=== PATIENT | male | born 1960 | race Caucasian/White ===

== ENCOUNTER 2019-11-10 12:04 | Outpatient (CLI) | payer BC, SELFPAY ==
--- NOTE | ~2019-11-10 | XR_ITS ---
XR chest 2V 11/10/2019 12:18 Indication: Cough and fever Procedure: 2 view chest Comparison: No prior studies for comparison. Findings: Heart size normal. No focal air space disease, pulmonary edema, pleural effusion or suspect ed pneumothorax. Calcified granuloma left mid chest. The lungs are hyperinflated which is consistent with, but not diagnostic of chronic obstructive pulmonary disease. Impression: 1: No acute cardiopulmonary disease. Reviewed, dictated and finalized at location A. Impression: 1: No acute cardiopulmonary disease.
== END 2019-11-10 12:05 | disposition home or self-care (01) ==
PROVIDERS: PCP Nurse Practitioner Family; Visit Provider Nurse Practitioner Family
DX: R05 Cough (principal)
CPT/HCPCS: 71046

== ENCOUNTER 2020-03-16 14:31 | Inpatient (IN) | payer BC, SELFPAY ==
[2020-03-16] VITALS (28 sets, daily range): BP systolic 109–143; BP diastolic 74–129; PULSE 88–139; RESP 15–22; TEMP 35.8–36.4; O2SAT 89–98; BMI 26.2
--- NOTE | ~2020-03-16 | XR_ITS ---
EXAMINATION: XR chest 1V portable DATE: 03/16/2020 16:28 INDICATION: Dyspnea TECHNIQUE: frontal view of the chest was obtained. COMPARISON: Chest radiograph dated 11/10/2019 FINDINGS: Increased interstitial pattern in the bilateral mid and lower lung zones consistent with mild pulmona ry edema. Small bilateral pleural effusions with blunting at the costophrenic angles. Opacities at th e bilateral lower lung zones consistent with associated atelectasis and/or pneumonia. No pneumothorax . Cardiomegaly. Calcified nodule in the left midlung zone consistent with old granulomatous disease. IMPRESSION: 1. Likely congestive heart failure with cardiomegaly, mild pulmonary edema and small bilateral pleura l effusions. 2. Consolidation in the bilateral lower lung zones most likely associated compressive atelectasis alt marian differential includes pneumonia. Reviewed, dictated and finalized at location A. IMPRESSION: 1. Likely congestive heart failure with cardiomegaly, mild pulmonary edema and small bilateral pleural effusions. 2. Consolidation in the bilateral lower lung zones most likely associated compr essive atelectasis although differential includes pneumonia.
--- NOTE | 2020-03-16 14:40 | ECG_ITS ---
Measurements Intervals [place] Rate: 116 P: TN: 0 QRS: 70 QRSD: 94 T: 44 QT: 310 QTc: 432 Interpretive Statements ATRIAL FIBRILLATION WITH RAPID VENTRICULAR RESPONSE NONSPECIFIC T-WAVE ABNORMALITY- INF/HIGH LAT LEADS BASELINE ARTIFACT- I, III, AVR, AVL, V2, V5-V6 ABNORMAL ECG Electronically Signed On 03-16-2020 15:13:33 CDT by Giorgio Gery D.O.
--- NOTE | 2020-03-16 14:48 | PC.NURSE ---
Pt to ED with complaints of shortness of breath with exertion and non-productive cough for 1.5 weeks. Pt denies chest pain or fevers. Pt has been using inhalers at home without relief. Reports he finished a z-pack today. EKG obtained. Pt placed on NIBP, SpO2, and cardiac monitors.
--- NOTE | 2020-03-16 14:55 | ED.SOB ---
HPI - SOB/Dyspnea General Chief Complaint: Shortness of Breath/Dyspnea Stated Complaint: diff breathing Time Seen by Provider: 03/16/20 14:35 Source: RN notes reviewed History of Present Illness HPI Narrative: Patient presents emergency department from home for shortness of breath. Patient symptoms been ongoing for the past 2 weeks. States he short of breath with walking and laying flat. He states that with this he is also been noted that he lays on his side he feels like his heart is been racing. Denies any fevers or chills chest pain abdominal pain nausea vomiting diarrhea or any other symptoms. He did call his PCP and was started on a Z-Brian this past week. Denies any previous cardiac history Related Data Home Medications Medication Instructions Recorded Confirmed fluticasone furoate-vilanterol 1 inh INHALATION DAILY 03/16/20 [Breo Ellipta] Allergies Allergy/AdvReac Type Severity Reaction Status Date / Time Penicillins Allergy Unknown Rash Verified 03/16/20 14:38 Review of Systems Review of Systems: Narrative: Gen.: Denies fevers or chills ENT: Denies congestion Respiratory: See HPI CV: Denies chest pain or palpitations GI: Denies abdominal pain nausea, emesis or diarrhea Musculoskeletal: Denies back pain or muscle pain Neuro: Denies numbness, tingling, weakness or focal weakness Skin: Denies rash Except as documented, all other systems reviewed and negative [facility] Past Medical History Medical History (Updated 03/16/20 @ 16:45 by Chris Hanna DO) Hypertension Osteoarthritis Social History Social History Smoking status: Current every day smoker Alcohol intake: current Gender identity (if verbalized by the patient): Male Exam Narrative: Exam Narrative: APPEARANCE: No acute distress, nontoxic, resting in bed EYES: EOMI HEENT: Normocephalic, atraumatic, OMM RESPIRATORY: No respiratory distress wheezing the bilateral upper lung felix with crackles in the bilateral bases CARDIOVASCULAR: Tachycardic and irregular without murmurs rubs or gallops. ABDOMINAL: Soft, nontender, nondistended, no rebound or guarding MUSCULOSKELETAl: Moves all extremities. No clubbing, cyanosis or edema. NEURO: Awake and alert. Following commands, speech normal, no focal deficits SKIN:: Warm, dry. No rashes lesions or abrasions PSYCHIATRIC: Normal affect/mood, Course Course Emergency Course: Called discussed with Dr. Jones presentation work-up. Agrees with current treatment plan Cardizem request patient receive Lovenox Discussed with KAYLYNN Boothe per for our presentation work-up. Agrees with admission at this time Discussed with patient and family results of workup and diagnosis. Discussed need for admission. Patient and family understand and agree to current treatment plan Vital Signs Vital signs: Vital Signs Temperature 97.3 F L 03/16/20 14:34 Pulse Rate 129 H 03/16/20 14:34 Respiratory Rate 18 03/16/20 14:34 Blood Pressure 136/88 03/16/20 14:34 Pulse Oximetry 98 03/16/20 14:34 Temperature 97.3 F L 03/16/20 14:34 Pulse Rate 108 H 03/16/20 16:30 Respiratory Rate 20 03/16/20 16:30 Blood Pressure 127/95 H 03/16/20 16:16 Pulse Oximetry 97 03/16/20 16:30 MDM - SOB/Dyspnea Lab Data Result diagrams: 03/16/20 14:50 03/16/20 14:50 Labs: Lab Results 03/16/20 03/16/20 03/16/20 Range/Units 14:50 14:50 14:50 WBC 11.5 H (4.5-10.0) K/mm3 RBC 4.00 L (4.6-6.20) M/mm3 Hgb 14.0 (14.0-18.0) g/dL Hct 42.2 (42.0-52.0) % MCV 105.5 H (80-100) fl MCH 35.0 H (26-34) pg MCHC 33.2 (32-36) g/dl RDW 13.4 (11.5-14.5) % Plt Count 267 (150-375) k/mm3 MPV 11.1 H (7.4-10.4) fl Immature Gran % (Auto) 0.5 (0-0.5) % Neut % (Auto) 74.1 H (45.5-73.1) % Lymph % (Auto) 15.8 L (18.3-44.2) % Mckean % (Auto) 8.7 H (2.6-8.5) % Eos % (Auto) 0.4
[2020-03-16 14:56] LABS: Basophils Absolute Auto 0.1 K/mm3 (0.0-0.1); Basophils Percent Auto 0.5 % (0.2-1.2); Eosinophils Absolute Auto 0.1 K/mm3 (0-0.3); Eosinophils Percent Auto 0.4 % (0-4.4); Hematocrit 42.2 % (42.0-52.0); Immature Granulocyte Absolute 0.06 K/mm3 (0.00-0.031); Immature Granulocyte Percent A 0.5 % (0-0.5); Lymphocytes Absolute Auto 1.82 K/mm3 (0.9-3.2); Lymphocytes Percent Auto 15.8 % (18.3-44.2); Mean Corpuscular HGB Conc 33.2 g/dl (32-36); Mean Corpuscular Volume 105.5 fl (80-100); Mean Platelet Volume 11.1 fl (7.4-10.4); Monocytes Percent Auto 8.7 % (2.6-8.5); Neutrophils Absolute Auto 8.5 K/mm3 (1.3-6.7); Neutrophils Percent Auto 74.1 % (45.5-73.1); Platelet Count Result 267 k/mm3 (150-375); Red Cell Distribution Width 13.4 % (11.5-14.5); White Blood Count 11.5 K/mm3 (4.5-10.0)
[2020-03-16 15:05] LABS: INR 1.3; Prothrombin Time 15.6 Seconds (11.1-14.7)
[2020-03-16] MEDS: dilTIAZem HCl INJ 25 MG/5 ML VIAL 5 MG IV PUSH ×2 (15:05→15:56)
[2020-03-16 15:06] LABS: Partial Thromboplastin Time 28.6 SECONDS (22.3-36.8)
[2020-03-16 15:08] LABS: Anion Gap 7 mmol/L (8-16); Blood Urea Nitrogen 25 mg/dL (9-20); Calcium 9.2 mg/dL (8.4-10.2); Carbon Dioxide 28 mmol/L (22-30); Chloride 105 mmol/L (98-107); Estimated CRCL calculation 75 ml/min; Estimated Glomerular Filt Rate > 60; Glucose 120 mg/dL (75-110); Potassium 5.2 mmol/L (3.4-5.0); Sodium 140 mmol/L (137-145)
[2020-03-16 15:20] LABS: NT Pro B Type Natriuretic Pept 2020 PG/ML (5-100); Troponin I 0.021 ng/mL (0.000-0.034)
[2020-03-16] MEDS: ENOXAPARIN 100 MG/ML SYRINGE 90 MG SUB-Q (16:45)
--- NOTE | 2020-03-16 17:25 | ADMGEN ---
This patient, Aly Starr, was admitted to IMU Room 212-01. Patient/family oriented to hospital policies and general routines including ID bracelet, bed and alarms, visiting hours, pain management, procedures, bathroom and other care routines, personal items, smoking policy, room service/diet, and visiting hours. Valuables list has been completed. Information on how to activate the Rapid Response Team has been discussed. Patient/Family are encouraged to report perceived risks to care and to ask questions if they do not understand what they are told or what they should do.
--- NOTE | 2020-03-16 21:19 | PM.IMHP ---
H&P: HPI History of Present Illness Date/Time: 03/16/20 21:19 Chief complaint: Shortness of breath with activity Narrative: Aly Starr is a 59 year old male with a past medical history of hypertension and COPD who presented to the ER with dyspnea on exertion for 2 weeks. He reports that about 2 and half weeks ago he pain to his son's house. A couple of days later he began having shortness of breath and thought that may be due to the paint fumes even though he did wear a mask while painting. He had his [id number] who is a nurse practitioner provide him script of azithromycin, Breo Ellipta inhaler and an albuterol inhaler. Despite taking these medications his symptoms have progressively worsened. He reports that he was wheezing and would here rattling when he would lay down. He was having significant orthopnea with paroxysmal nocturnal dyspnea. He denies any fevers, chills or recent ill contacts. He came into the ER because he was concerned that he may have been having symptoms of COVID. However when the patient arrived to the ER he was noted to be in AFib RVR with heart rates in the 130s. In hindsight, he recalls l feeling as if his heart was racing and having episodes of irregularity especially when he would lay down on his side. He was having dyspnea on exertion and had got to the point where he could not walk 10 ft without significant respiratory distress. He denied having any chest pain. He will occasionally notice some trace edema if he has been working a lot. He has not noticed any recent edema. He has not had any recent travel, or known ill contacts. He does not have a history of COPD or frequent upper respiratory tract infections. He has had a long history of snoring, daytime fatigue, and witnessed apnea. He reports that the symptoms have gotten worse over the last year. He reports that he always feels tired even though he is now sleeping up to 10 hours a day since he retired. He thinks that he needs a sleep study but has never followed through with requesting one from his primary care provider. He denies any hematochezia, melena or hematuria. Review of Systems Review of Systems: Narrative: 12 systems were reviewed with pertinent positives and negatives per HPI. Except as documented in the HPI, all other systems were reviewed and are negative. [facility] Past Medical History Medical History (Updated 10/04/20 @ 00:31 by Shanna Torres DO) Anxiety Hypertension Osteoarthritis Tobacco abuse disorder Surgical History Surgical History (Updated 03/17/20 @ 00:27 by Shanna Torres DO) History of total right knee replacement 2010 Status post left partial knee replacement 1999 Family History Family History (Updated 03/17/20 @ 00:12 by Shanna Torres DO) Father , 80 years old Dementia Atrial fibrillation Mother , 72 years old CHF (congestive heart failure) Sibling Obesity Diabetes mellitus Obstructive sleep apnea Social History Social History (Updated 03/17/20 @ 00:13 by Shanna Torres DO) Social History: He lives in [facility] with his of 32 years. He retired in the early spring. 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 He started smoking at 45 years of age and has smoked between 1-1.5 packs per day. He drinks 2 or 3 beers several times a week. He uses 2 or 3 marijuana joints a week. He has 1 son and 1 daughter. The patient has 2 brothers and 2 sisters. His 1 brother is obese and has diabetes and obstructive sleep apnea. His remaining siblings are relatively healthy. Primary care physician: Dr. Kevin Mac Surrogate decision maker: Tierra Garsiacarlos () Smoking packs per day: 1 Smoking cigarettes per day: 20.0 Years smoked: 15 Smoking pack-years: 15.00 Smoking status: Current every day smoker Tobacco type: cigarettes Alcohol intake: current Drinks per week: 10 Substance use type: marijuana Gender identity (if verbali
[2020-03-16 22:34] LABS: Troponin I 0.019 ng/mL (0.000-0.034)
[2020-03-16] MEDS: diphenhydrAMINE HCl CAP 25 MG CAPSULE 50 MG PO (22:35)
[2020-03-17] VITALS (19 sets, daily range): BP systolic 100–118; BP diastolic 74–93; PULSE 77–112; RESP 16–22; TEMP 36.1–36.6; O2SAT 92–96
[2020-03-17] MEDS: FUROSEMIDE INJ 40 MG/4 ML VIAL 20 MG IV PUSH (00:49)
[2020-03-17] MEDS: ENOXAPARIN 100 MG/ML SYRINGE 90 MG SUB-Q (05:33)
[2020-03-17 08:05] LABS: Basophils Absolute Auto 0.1 K/mm3 (0.0-0.1); Basophils Percent Auto 0.7 % (0.2-1.2); Eosinophils Absolute Auto 0.1 K/mm3 (0-0.3); Eosinophils Percent Auto 0.9 % (0-4.4); Hematocrit 38.3 % (42.0-52.0); Hemoglobin 12.8 g/dL (14.0-18.0); Immature Granulocyte Absolute 0.04 K/mm3 (0.00-0.031); Immature Granulocyte Percent A 0.4 % (0-0.5); Lymphocytes Absolute Auto 1.99 K/mm3 (0.9-3.2); Lymphocytes Percent Auto 18.9 % (18.3-44.2); Mean Corpuscular HGB Conc 33.4 g/dl (32-36); Mean Corpuscular Hemoglobin 34.9 pg (26-34); Mean Corpuscular Volume 104.4 fl (80-100); Mean Platelet Volume 11.6 fl (7.4-10.4); Monocytes Absolute Auto 1.1 K/mm3 (0.1-0.6); Neutrophils Absolute Auto 7.3 K/mm3 (1.3-6.7); Neutrophils Percent Auto 69.1 % (45.5-73.1); Platelet Count Result 237 k/mm3 (150-375); Red Blood Count 3.67 M/mm3 (4.6-6.20); Red Cell Distribution Width 13.3 % (11.5-14.5); White Blood Count 10.5 K/mm3 (4.5-10.0)
[2020-03-17 08:18] LABS: Potassium 4.6 mmol/L (3.4-5.0)
[2020-03-17] MEDS: lisinopriL 20 MG TABLET 40 MG PO (08:37)
[2020-03-17] MEDS: PARoxetine 20 MG TABLET 40 MG PO (08:37)
[2020-03-17] MEDS: PANTOPRAZOLE SOD SESQUIHYDRATE 20 MG TAB PO (08:37)
[2020-03-17 08:41] LABS: Anion Gap 7 mmol/L (8-16); Blood Urea Nitrogen 23 mg/dL (9-20); Calcium 8.9 mg/dL (8.4-10.2); Carbon Dioxide 27 mmol/L (22-30); Chloride 104 mmol/L (98-107); Estimated CRCL calculation 69 ml/min; Estimated Glomerular Filt Rate > 60; Glucose 100 mg/dL (75-110); Magnesium 1.9 mg/dL (1.6-2.3); Sodium 138 mmol/L (137-145)
--- NOTE | 2020-03-17 10:23 | PM.CNCAR ---
Assessment and Plan Additional Plan 59-year-old white male with: Atrial fibrillation of unknown chronicity. By his history I am suspicious he has been out of rhythm for possibly 2 or 3 months. He now is short of breath and has evidence of left-sided congestive heart failure which is obvious on physical exam as well as on chest x-ray. I am going to recommend another dose of oral furosemide today. I will transition him to oral diltiazem along with his lisinopril which has been chronically used for hypertension. With the wheezing going on physical exam at this point I am concerned that he may not tolerate a beta-hector very well. I will recommend systemically anticoagulated him with Xarelto and stop the Lovenox. Echocardiogram will be ordered for tomorrow morning as I am concerned this the patient may have developed a tachycardia mediated cardiomyopathy as his cardiac silhouette is obviously enlarged compared to earlier this year. Thyroid-stimulating hormone should also be checked Further recommendations will be forthcoming the findings of his echocardiogram. Harshil Garcia MD [facility] History of Present Illness History of Present Illness Consult date/time: 03/17/20 10:23 Consult reason: atrial fibrillation Reason For Visit: Shortness of breath with activity Narrative: This is a 59-year-old man of seeing at the request of the hospitalist for assistance with evaluation and treatment of atrial fibrillation. The patient does not have any prior knowledge of any cardiac problems before this admission. He does have chronic hypertension and takes lisinopril for that but really no other significant or serious medical problems. He is a smoker but has not been diagnosed with COPD. The patient states that he has been having symptoms of shortness of breath which have been gradually more more bothersome for at least a couple of months or possibly longer than that. He does notice that when he was laying on his left side in bed he would feel his heart beating erratically but he really did not obviously become too concerned about that as he did not seek any medical attention. He came to the emergency room yesterday because his shortness of breath became rather severe and in the last several days at least he was short of breath when he would try to lie down in bed. He recognized these as more significant problems and eventually thought he should seek medical attention. In the emergency department he was found to be in atrial fibrillation with moderately rapid ventricular response. Of course he was placed on intravenous diltiazem and anticoagulated with Lovenox and admitted to the hospital. The looks like he received 1 dose of oral furosemide as well. The patient feels relatively well he was sleeping in bed with the head of the bed slightly elevated when I came into the room to see him. He offers no other complaints. He reported no chest pain he reported no lower extremity edema. The patient's chest x-ray demonstrates enlargement of the cardiac silhouette pulmonary vascular congestion and small bilateral pleural effusions. His chest x-ray in the chart from October of this year was completely unremarkable. Review of Systems Constitutional: Constitutional: Reports fatigue and Reports lethargy Eyes: Eyes: Reports no additional eye complaints ENT: Reports system reviewed and no additional complaints, except as documented Cardiovascular: Cardiovascular: Reports palpitations Respiratory: Respiratory: Reports dyspnea Gastrointestinal: Gastrointestinal: Reports no additional gastrointestinal complaints Musculoskeletal: Musculoskeletal: Reports no additional musculoskeletal complaints Integumentary/Breasts: Skin/Breast: Reports system reviewed and no additional complaints, except as docu Neurologic: Reports system reviewed and no additional complaints, except as documented Endocrine: Endocrine: Reports no additional endocrine complaints Hematologic/Lymphatic
[2020-03-17] MEDS: FUROSEMIDE 40 MG TABLET PO (12:09)
--- NOTE | 2020-03-17 12:12 | PC.NURSE ---
diltiazem drip d/c'ed. PO med given. Will continue to monitor.
--- NOTE | 2020-03-17 12:26 | PM.IMPN ---
Progress Note: A&P Assessment and Plan (1) Atrial fibrillation with rapid ventricular response: Code(s): I48.91 - Unspecified atrial fibrillation Status: Acute Assessment and Plan: New onset atrial fibrillation. Was as high as the 130s in the ER. Currently his heart rate is down to 90 after he received to 5 mg Cardizem boluses and is on a Cardizem drip at 5 mg an hour. Cardiology has been consulted. Echocardiogram has been ordered. Patient has been started on therapeutic dosing of Lovenox. The patient reports significant symptoms of excessive daytime sleepiness snoring and witnessed episodes of apnea. Patient has high likelihood of obstructive sleep apnea which may have predisposed the patient to developing atrial fibrillation. Apnea link has been ordered. 03/17/20 12:26 patient is a 59-year-old male with no significant past medical history he had been painting his son's house and short of breath and symptoms were getting progressively worse especially with exertion is also developed orthopnea lower extremity swelling he presented emergency department for evaluation of shortness of breath he he was found to have a new onset atrial fibrillation patient was started on diltiazem drip, today patient is seen by telegraph lineman and suspect the patient's symptoms are persisting for last 2-3 months as he is significant cardiomegaly, his TSH is normal, his symptoms are improving his rate is trending down, diltiazem drip postop and patient is now on oral diltiazem, initially patient was anticoagulated with Lovenox now being transitioned Xarelto, patient is also being diuresed suspect patient has a congestive heart failure, cardiac echo is pending, today patient states is feeling better not a short of breath as when he arrived, denies any chest pain shortness of breath palpitation fever or chills (2) CHF (congestive heart failure): Qualifiers: Heart failure type: high output Qualified Code(s): I50.83 - High output heart failure Code(s): I50.9 - Heart failure, unspecified Status: Acute Assessment and Plan: Likely secondary to high-output failure given his 2 weeks symptoms of atrial fibrillation. Patient does have some mild JVD and still having significant orthopnea. Will give 1 time dose of Lasix 20 mg IV push. Echocardiogram has been ordered to further evaluate cardiac structure and function. (3) Tobacco abuse disorder: Code(s): Z72.0 - Tobacco use Status: Acute Assessment and Plan: The patient reports that with the beginning of his symptoms of shortness of breath he became more aware that he needs to quit smoking. Tobacco cessation education was provided. Subjective Date/time seen: 03/17/20 12:26 patient is a 59-year-old male with no significant past medical history he had been painting his son's house and short of breath and symptoms were getting progressively worse especially with exertion is also developed orthopnea lower extremity swelling he presented emergency department for evaluation of shortness of breath he he was found to have a new onset atrial fibrillation patient was started on diltiazem drip, today patient is seen by telegraph lineman and suspect the patient's symptoms are persisting for last 2-3 months as he is significant cardiomegaly, his TSH is normal, his symptoms are improving his rate is trending down, diltiazem drip postop and patient is now on oral diltiazem, initially patient was anticoagulated with Lovenox now being transitioned Xarelto, patient is also being diuresed suspect patient has a congestive heart failure cardiac echo is pending, today patient states is feeling better not a short of breath as when he arrived, denies any chest pain shortness of breath palpitation fever or chills Review of Systems Review of Systems: All systems reviewed & are unremarkable except as noted in HPI and below Exam Const: General: comfortable and no acute
[2020-03-17] MEDS: diphenhydrAMINE HCl CAP 25 MG CAPSULE 50 MG PO (20:58)
[2020-03-18] VITALS (11 sets, daily range): BP systolic 108–118; BP diastolic 78–93; PULSE 77–110; RESP 18–20; TEMP 35.7–36.6; O2SAT 93–96
--- NOTE | 2020-03-18 | ECHO_ITS ---
Patient Info Name: Aly Starr Age: 59 years : 1960 Gender: Male Ht: 74 in Wt: 199 lbs BSA: 2.18 m2 HR: 100 bpm BP: 108 / 78 mmHg Heart Rhythm: Atrial Fibrillation Technical Quality: Good Exam Date: 03/18/2020 9:35 AM Exam Location: [facility] Patient Status: Inpatient Admit Date: 03/17/2020 Staff Ordering Physician: Harshil Garcia MD Parachute Repairer: Yovanny Farrell RDCS, RT Attending Provider: Dorian Gonzalez MD Referring Physician: Radha BECK; Exam Type: CA echo doppler color flow Study Info Indications I48.0 - Paroxysmal atrial fibrillation Complete two-dimensional, color flow and Doppler transthoracic echocardiogram is performed. Summary 1. Complete two-dimensional, color flow and Doppler transthoracic echocardiogram is performed. 2. Left ventricular chamber dimension is normal. 3. Left ventricular systolic function is normal, estimated at 50-55%. 4. The mitral valve has thickened leaflets. 5. There is severe mitral valve regurgitation. 6. There is moderate tricuspid valve regurgitation. 7. Moderate to severe biatrial dilation. Left Ventricle Left ventricular chamber dimension is normal. Left ventricular systolic function is normal, estimated at 50-55%. Right Ventricle Right ventricular chamber dimension is normal. Left Atria Left atrial chamber dimension is moderately enlarged. Right Atria Right atrial chamber dimension is moderately enlarged. Aortic Valve The aortic valve is normal. Pulmonic Valve The pulmonic valve is not well visualized. Mitral Valve The mitral valve has thickened leaflets. There is severe mitral valve regurgitation. Tricuspid Valve The tricuspid valve leaflets are normal. There is moderate tricuspid valve regurgitation. Pericardium/Pleural The pericardium appears normal. Aorta The aortic root size at the sinus of Valsalva is normal. Left Ventricular Outflow Tract Name Value Normal LVOT 2D LVOT Diameter 2.1 cm LVOT Doppler LVOT Peak Gradient 3 mmHg LVOT Mean Gradient 2 mmHg LVOT VTI 18 cm LVOT VTI/AV VTI Ratio 1.0 LVOT Stroke Volume 66 ml LVOT CO 3.5 l/min LVOT CI 1.6 l/min/m2 Mitral Valve Name Value Normal MV Doppler MV Peak Gradient 2 mmHg MV Mean Gradient 1 mmHg MV Decel [place] 958 cm/s2 MV PHT 72 ms MV Area (PHT) 3.1 cm2 4.0-5.0 MV Area (Cont Eq VTI) 5.3 cm2 MV Regurgitation Doppler
[2020-03-18 06:27] LABS: Basophils Absolute Auto 0.1 K/mm3 (0.0-0.1); Basophils Percent Auto 0.7 % (0.2-1.2); Eosinophils Absolute Auto 0.1 K/mm3 (0-0.3); Eosinophils Percent Auto 1.3 % (0-4.4); Hematocrit 37.5 % (42.0-52.0); Hemoglobin 12.6 g/dL (14.0-18.0); Immature Granulocyte Absolute 0.05 K/mm3 (0.00-0.031); Immature Granulocyte Percent A 0.5 % (0-0.5); Lymphocytes Absolute Auto 1.85 K/mm3 (0.9-3.2); Mean Corpuscular HGB Conc 33.6 g/dl (32-36); Mean Corpuscular Hemoglobin 34.1 pg (26-34); Mean Corpuscular Volume 101.6 fl (80-100); Mean Platelet Volume 10.9 fl (7.4-10.4); Monocytes Percent Auto 9.3 % (2.6-8.5); Neutrophils Absolute Auto 7.2 K/mm3 (1.3-6.7); Neutrophils Percent Auto 70.2 % (45.5-73.1); Platelet Count Result 239 k/mm3 (150-375); Red Blood Count 3.69 M/mm3 (4.6-6.20); Red Cell Distribution Width 13.2 % (11.5-14.5); White Blood Count 10.3 K/mm3 (4.5-10.0)
[2020-03-18 08:25] LABS: Anion Gap 10 mmol/L (8-16); Blood Urea Nitrogen 21 mg/dL (9-20); Calcium 8.7 mg/dL (8.4-10.2); Carbon Dioxide 25 mmol/L (22-30); Chloride 104 mmol/L (98-107); Estimated CRCL calculation 75 ml/min; Estimated Glomerular Filt Rate > 60; Glucose 123 mg/dL (75-110); Potassium 4.3 mmol/L (3.4-5.0); Sodium 139 mmol/L (137-145)
[2020-03-18] MEDS: PARoxetine 20 MG TABLET 40 MG PO (08:43)
[2020-03-18] MEDS: lisinopriL 20 MG TABLET 40 MG PO (08:43)
[2020-03-18] MEDS: PANTOPRAZOLE SOD SESQUIHYDRATE 20 MG TAB PO (08:43)
--- NOTE | 2020-03-18 09:34 | PM.PNCARD ---
Progress Note: A&P Assessment and Plan (1) Atrial fibrillation with rapid ventricular response: Code(s): I48.91 - Unspecified atrial fibrillation Status: Acute Assessment and Plan: Atrial fibrillation of unknown chronicity. Rate is relatively controlled on Cardizem CD 240 mg daily. CHADs-VASC2 score is 2. Anticoagulate with Xarelto 20 mg daily. Renal function is normal. TSH is within normal limits. Echo pending. Further recommendations pending the results of the echocardiogram. (2) CHF (congestive heart failure): Qualifiers: Heart failure type: high output Qualified Code(s): I50.83 - High output heart failure Code(s): I50.9 - Heart failure, unspecified Status: Acute Assessment and Plan: Diuresed. Feeling much better. No crackles noted his lungs today however has inspiratory and expiratory rhonchi. Is coughing up white secretions. Echo pending as above. (3) Hypertension: Code(s): I10 - Essential (primary) hypertension Status: Acute Assessment and Plan: Blood pressure is at goal. Continue lisinopril 40 mg daily along with Cardizem CD. May need to decrease lisinopril dose if need to increase Cardizem dose for better rate control. (4) Tobacco abuse disorder: Code(s): Z72.0 - Tobacco use Status: Acute Assessment and Plan: Tobacco cessation discussed. He is in agreement that he needs to stop smoking. Additional Plan Plan discussed Dr. Garcia [id number] 03/18/2020 Subjective Date/time seen: 03/18/20 09:34 Interval history: Follow-up for: Atrial fibrillation of unknown chronicity, left-sided congestive heart failure, cardiomegaly on chest x-ray, tobacco use. Date of service: 03/18/2020 Subjective: Feeling much better. Denied shortness of breath walking back and forth to the bathroom. No chest discomfort. Occasionally feels a need to take in a deep breath. Rare palpitations noted when his heart rate is elevated. No dizziness or lightheadedness. Review of Systems Constitutional: Constitutional: Reports fatigue Eyes: Eyes: Denies blind spots and Denies blurry vision ENT: Reports Normal hearing present, Denies dizziness and Denies epistaxis Cardiovascular: Cardiovascular: Reports palpitations and Reports dyspnea ( Significantly improved) Respiratory: Respiratory: Reports cough ( productive of white secretions) and Reports dyspnea ( significantly improved) Gastrointestinal: Gastrointestinal: Denies abdominal pain, Denies nausea and Denies vomiting Musculoskeletal: Musculoskeletal: Denies back pain and Denies arthralgias Integumentary/Breasts: Skin/Breast: Denies erythema and Denies rash Comments: multiple tattoos Neurologic: Reports Normal hearing present, Denies dizziness, Denies syncope and Denies headache(s) Psychiatric: Psychiatric: Denies anxiety and Denies depression Endocrine: Endocrine: Reports fatigue and Reports palpitations Hematologic/Lymphatic: Hematologic/Lymphatic: Denies easy bleeding and Denies easy bruising Allergic/Immunologic: Allergic/Immunologic: Denies lip swelling and Denies throat swelling Exam Const: General: cooperative, healthy appearing, comfortable and no acute distress Nutritional Appearance: average body habitus Orientation/consciousness: patient oriented x3 Limitations: no limitations HENMT: Mouth: Yes moist mucous membranes Eyes: Sclera: sclerae normal Pupils: Equal, round and reactive pupils present Neck: Neck: supple and no JVD Resp: Effort & Inspection: normal respiratory effort Auscultation: no crackles, rhonchi ( inspiratory and expiratory) and no wheezes Cardio: Rhythm: abnormal rhythm irregularly irregular Heart sounds: no murmurs Peripheral pulses: Peripheral pulses 2+ throughout GI: GI Palp: Yes Soft to palpation Auscultation: normal bowel sounds
[2020-03-18] MEDS: RIVAROXABAN 20 MG TABLET PO (16:48)
--- NOTE | 2020-03-18 17:22 | PM.IMPN ---
Progress Note: A&P Assessment and Plan (1) Atrial fibrillation with rapid ventricular response: Code(s): I48.91 - Unspecified atrial fibrillation Status: Acute Assessment and Plan: New onset atrial fibrillation. Was as high as the 130s in the ER. Currently his heart rate is down to 90 after he received to 5 mg Cardizem boluses and is on a Cardizem drip at 5 mg an hour. Cardiology has been consulted. Echocardiogram has been ordered. Patient has been started on therapeutic dosing of Lovenox. The patient reports significant symptoms of excessive daytime sleepiness snoring and witnessed episodes of apnea. Patient has high likelihood of obstructive sleep apnea which may have predisposed the patient to developing atrial fibrillation. Apnea link has been ordered. patient is a 59-year-old male with no significant past medical history he had been painting his son's house and short of breath and symptoms were getting progressively worse especially with exertion is also developed orthopnea lower extremity swelling he presented emergency department for evaluation of shortness of breath he he was found to have a new onset atrial fibrillation patient was started on diltiazem drip, today patient is seen by transfer knitter and suspect the patient's symptoms are persisting for last 2-3 months as he is significant cardiomegaly, his TSH is normal, his symptoms are improving his rate is trending down, diltiazem drip postop and patient is now on oral diltiazem, initially patient was anticoagulated with Lovenox now being transitioned Xarelto, patient is also being diuresed suspect patient has a congestive heart failure, today on 03/18 patient had cardiac echo is pending, Patient is seen by transfer knitter and further recommended today patient states is feeling better not a short of breath as when he arrived, denies any chest pain shortness of breath palpitation fever or chills (2) CHF (congestive heart failure): Qualifiers: Heart failure type: high output Qualified Code(s): I50.83 - High output heart failure Code(s): I50.9 - Heart failure, unspecified Status: Acute Assessment and Plan: Likely secondary to high-output failure given his 2 weeks symptoms of atrial fibrillation. Patient does have some mild JVD and still having significant orthopnea. Will give 1 time dose of Lasix 20 mg IV push. Echocardiogram has been ordered to further evaluate cardiac structure and function. (3) Tobacco abuse disorder: Code(s): Z72.0 - Tobacco use Status: Acute Assessment and Plan: The patient reports that with the beginning of his symptoms of shortness of breath he became more aware that he needs to quit smoking. Tobacco cessation education was provided. Subjective Date/time seen: 03/18/20 17:22 patient is a 59-year-old male with no significant past medical history he had been painting his son's house and short of breath and symptoms were getting progressively worse especially with exertion is also developed orthopnea lower extremity swelling he presented emergency department for evaluation of shortness of breath he he was found to have a new onset atrial fibrillation patient was started on diltiazem drip, today patient is seen by transfer knitter and suspect the patient's symptoms are persisting for last 2-3 months as he is significant cardiomegaly, his TSH is normal, his symptoms are improving his rate is trending down, diltiazem drip postop and patient is now on oral diltiazem, initially patient was anticoagulated with Lovenox now being transitioned Xarelto, patient is also being diuresed suspect patient has a congestive heart failure, today on 03/18 patient had cardiac echo is pending, Patient is seen by transfer knitter and further recommended today patient states is feeling better not a short of breath as when he arrived, denies any chest pain shortness of breath palpitation fever or chills Review of
--- NOTE | 2020-03-18 17:44 | PM.DS ---
DS: Admitting Diagnosis Admitting Diagnosis Admitting Diagnosis: Shortness of breath with activity DS: Discharge Diagnosis Discharge Diagnosis (1) Atrial fibrillation with rapid ventricular response: Code(s): I48.91 - Unspecified atrial fibrillation Status: Acute Assessment and Plan: New onset atrial fibrillation. Was as high as the 130s in the ER. Currently his heart rate is down to 90 after he received to 5 mg Cardizem boluses and is on a Cardizem drip at 5 mg an hour. Cardiology has been consulted. Echocardiogram has been ordered. Patient has been started on therapeutic dosing of Lovenox. The patient reports significant symptoms of excessive daytime sleepiness snoring and witnessed episodes of apnea. Patient has high likelihood of obstructive sleep apnea which may have predisposed the patient to developing atrial fibrillation. Apnea link has been ordered. patient is a 59-year-old male with no significant past medical history he had been painting his son's house and short of breath and symptoms were getting progressively worse especially with exertion is also developed orthopnea lower extremity swelling he presented emergency department for evaluation of shortness of breath he he was found to have a new onset atrial fibrillation patient was started on diltiazem drip, today patient is seen by metal bonding crib attendant and suspect the patient's symptoms are persisting for last 2-3 months as he is significant cardiomegaly, his TSH is normal, his symptoms are improving his rate is trending down, diltiazem drip postop and patient is now on oral diltiazem, initially patient was anticoagulated with Lovenox now being transitioned Xarelto, patient is also being diuresed suspect patient has a congestive heart failure, today on 03/18 patient had cardiac echo is pending, Patient is seen by metal bonding crib attendant and further recommended today patient states is feeling better not a short of breath as when he arrived, denies any chest pain shortness of breath palpitation fever or chills (2) CHF (congestive heart failure): Qualifiers: Heart failure type: high output Qualified Code(s): I50.83 - High output heart failure Code(s): I50.9 - Heart failure, unspecified Status: Acute Assessment and Plan: Likely secondary to high-output failure given his 2 weeks symptoms of atrial fibrillation. Patient does have some mild JVD and still having significant orthopnea. Will give 1 time dose of Lasix 20 mg IV push. Echocardiogram has been ordered to further evaluate cardiac structure and function. (3) Tobacco abuse disorder: Code(s): Z72.0 - Tobacco use Status: Acute Assessment and Plan: The patient reports that with the beginning of his symptoms of shortness of breath he became more aware that he needs to quit smoking. Tobacco cessation education was provided. DS: Summary Hospital Course Reason for hospitalization: Chief complaint: Shortness of breath with activity Narrative: Aly Starr is a 59 year old male with a past medical history of hypertension and COPD who presented to the ER with dyspnea on exertion for 2 weeks. He reports that about 2 and half weeks ago he pain to his son's house. A couple of days later he began having shortness of breath and thought that may be due to the paint fumes even though he did wear a mask while painting. He had his [id number] who is a nurse practitioner provide him script of azithromycin, Breo Ellipta inhaler and an albuterol inhaler. Despite taking these medications his symptoms have progressively worsened. He reports that he was wheezing and would here rattling when he would lay down. He was having significant orthopnea with paroxysmal nocturnal dyspnea. He denies any fevers, chills or recent ill contacts. He came into the ER because he was concerned that he may have been having symptoms of COVID. However when the patient arrived to the ER he was not
== END 2020-03-18 18:30 | disposition home or self-care (01) | DRG 310 ==
LOC: ANHED 16:45 → ANHIMU 16:48
PROVIDERS: Specialist; Admitting Provider Internal Medicine; Emergency Provider Emergency Medicine; PCP Family Medicine; Visit Provider Family Medicine
DX: I48.91 Unspecified atrial fibrillation (principal); I50.83 High output heart failure; I11.0 Hypertensive heart disease with heart failure; J44.9 Chronic obstructive pulmonary disease, unspecified; F17.210 Nicotine dependence, cigarettes, uncomplicated; R06.83 Snoring; R06.81 Apnea, not elsewhere classified; Z96.653 Presence of artificial knee joint, bilateral; Z28.21 Immunization not carried out because of patient refusal; Z79.899 Other long term (current) drug therapy; Z88.0 Allergy status to penicillin
CPT/HCPCS: 36415; 71045; 80048; 83735; 83880; 84443; 84484; 85025; 85610; 85730; 93005; 93306; 94762; 96365; 96366; 96372; 96375; 99285; A9270; G0378; J1650; J1940

== ENCOUNTER 2020-03-25 02:42 | Outpatient (CLI) | payer BC, SELFPAY ==
[2020-03-25 18:16] LABS: SARS-CoV-2 RNA PCR Negative
== END 2020-03-25 02:43 | disposition home or self-care (01) ==
LOC: ANHCOVIDDT 02:42
PROVIDERS: Nurse Practitioner Family; PCP Family Medicine; Visit Provider Specialist
DX: Z01.812 Encounter for preprocedural laboratory examination (principal); Z20.828 Contact with and (suspected) exposure to other viral communicable diseases
CPT/HCPCS: 87635; C9803; U0003

== ENCOUNTER 2020-03-27 01:37 | Day surgery (SDC) | payer BC, SELFPAY ==
[2020-03-27] VITALS (8 sets, daily range): BP systolic 107–121; BP diastolic 89–96; PULSE 75–110; RESP 14–16; TEMP 36.6; O2SAT 92–96; BMI 24.1
[2020-03-27 07:30] LABS: Basophils Absolute Auto 0.1 K/mm3 (0.0-0.1); Basophils Percent Auto 0.7 % (0.2-1.2); Eosinophils Absolute Auto 0.1 K/mm3 (0-0.3); Hematocrit 43.9 % (42.0-52.0); Hemoglobin 14.7 g/dL (14.0-18.0); Immature Granulocyte Absolute 0.04 K/mm3 (0.00-0.031); Immature Granulocyte Percent A 0.4 % (0-0.5); Lymphocytes Absolute Auto 2.08 K/mm3 (0.9-3.2); Lymphocytes Percent Auto 19.4 % (18.3-44.2); Mean Corpuscular HGB Conc 33.5 g/dl (32-36); Mean Corpuscular Hemoglobin 33.9 pg (26-34); Mean Corpuscular Volume 101.2 fl (80-100); Mean Platelet Volume 10.1 fl (7.4-10.4); Monocytes Absolute Auto 0.9 K/mm3 (0.1-0.6); Monocytes Percent Auto 8.1 % (2.6-8.5); Neutrophils Absolute Auto 7.6 K/mm3 (1.3-6.7); Neutrophils Percent Auto 70.4 % (45.5-73.1); Platelet Count Result 306 k/mm3 (150-375); Red Blood Count 4.34 M/mm3 (4.6-6.20); Red Cell Distribution Width 12.4 % (11.5-14.5); White Blood Count 10.7 K/mm3 (4.5-10.0)
[2020-03-27 07:42] LABS: Anion Gap 7 mmol/L (8-16); Blood Urea Nitrogen 21 mg/dL (9-20); Calcium 9.3 mg/dL (8.4-10.2); Carbon Dioxide 27 mmol/L (22-30); Chloride 108 mmol/L (98-107); Estimated CRCL calculation 84 ml/min; Estimated Glomerular Filt Rate > 60; Glucose 121 mg/dL (75-110); Potassium 4.4 mmol/L (3.4-5.0); Prothrombin Time 13.3 Seconds (11.1-14.7); Sodium 142 mmol/L (137-145)
--- NOTE | 2020-03-27 08:36 | SUR.PREOP ---
DR. RAMÍREZ HERE TO SEE PT AND AT BEDSIDE.
--- NOTE | 2020-03-27 08:39 | WPDMODSED ---
Moderate Sedation Note-Pt Data Patient Data Diagnosis: Atrial fibrillation, mitral valve regurgitation Present Complaint: no complaints this morning Procedure to be performed/Plan: right and left heart catheterization in anticipation of mitral valve repair /replacement Allergies Allergy/AdvReac Type Severity Reaction Status Date / Time Penicillins Allergy Unknown Rash Verified 03/27/20 07:48 Home Medications Medication Instructions Recorded Confirmed Type lisinopril 40 mg tablet 40 mg PO DAILY #90 tablet 09/08/19 03/27/20 Rx omeprazole 20 mg capsule,delayed 20 mg PO DAILY #90 cap 09/08/19 03/27/20 Rx release paroxetine HCl 40 mg tablet 40 mg PO DAILY #90 tablet 09/08/19 03/27/20 Rx oxycodone-acetaminophen 10 mg-325 1 tablet PO Q4H PRN #90 tablet 02/16/20 03/27/20 Rx mg tablet Breo Ellipta 1 inh INHALATION DAILY 03/16/20 03/27/20 History diltiazem HCl 240 mg PO QAM #30 cap 03/18/20 03/27/20 Rx levalbuterol tartrate [Xopenex HFA] 2 inhalation INHALATION Q6H #15 gm 03/18/20 03/27/20 Rx rivaroxaban [Xarelto] 20 mg PO DAILY@1700 #30 tablet 03/18/20 03/27/20 Rx Current Medications: Active Medications Sodium Chloride (Normal Saline Iv) 500 mls @ 100 mls/hr IV CONT .Q5H TERRY Sedation/Anesthesia: No previous sedation/anesthesia problems (including family history). [facility] Past Medical History Medical History (Updated 03/17/20 @ 00:31 by Shanna Torres DO) Anxiety Hypertension Osteoarthritis Tobacco abuse disorder Surgical History Surgical History (Updated 03/17/20 @ 00:27 by Shanna Torres DO) History of total right knee replacement 2009 Status post left partial knee replacement 1999 Family History Family History (Updated 03/17/20 @ 00:12 by Shanna Torres DO) Father , 80 years old Dementia Atrial fibrillation Mother , 72 years old CHF (congestive heart failure) Sibling Obesity Diabetes mellitus Obstructive sleep apnea Social History Social History (Updated 03/17/20 @ 00:13 by Shanna Torres DO) Social History: He lives in [facility] with his of 32 years. He retired in the early spring. 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 He started smoking at 45 years of age and has smoked between 1-1.5 packs per day. He drinks 2 or 3 beers several times a week. He uses 2 or 3 marijuana joints a week. He has 1 son and 1 daughter. The patient has 2 brothers and 2 sisters. His 1 brother is obese and has diabetes and obstructive sleep apnea. His remaining siblings are relatively healthy. Primary care physician: Dr. Kevin Mac Surrogate decision maker: Tierra Morejon () Smoking packs per day: 1 Smoking cigarettes per day: 20.0 Years smoked: 15 Smoking pack-years: 15.00 Smoking status: Current every day smoker Tobacco type: cigarettes Alcohol intake: current Drinks per week: 10 Substance use type: marijuana Gender identity (if verbalized by the patient): Male Spiritual care concerns: No Mod Sed Physical Exam Physical Exam Pre Procedural Exam: Normal: Appearance, Neck, Throat, Airway, Heart Size, Heart Rate, Neuro Exam and Extremities and Variation: Lungs ( breath sounds somewhat diminished in both l) and Heart Rhythm ( irregularly irregular) Hours since solid foods: 12 Hours since liquid intake: 12 Internal Medicine - PN: Obj Da Vital Signs Vital Signs: Vital Signs - 24 hr 03/27/20 07:22 Pulse Rate 110 H Respiratory Rate 14 Pulse Oximetry 93 Meds/Results Medications: Active Medications Generic Name Dose Route Start Last Admin Trade Name Jayyq PRN Reason Stop Dose Admin Sodium Chloride 500 mls @ 100 mls/hr 03/27/20 06:15 Normal Saline Iv IV CONT .Q5H [facility] Labs CBC & Chem 7: 03/27/20 07:25 03/27/20 07:25 Labs: Laboratory Results - last 24 hr 03/27/20 03/27/20 03/27/20 07:25 07:25 07:25 WBC 10.7 H RBC 4.34 L Hgb 14.7 Hct 43.9
--- NOTE | 2020-03-27 09:32 | WPDCARDPROC ---
Cardiac Cath Procedure Note Date of procedure:: 03/27/20 Performing physician:: Harshil Garcia MD Indication:: Atrial fibrillation of recent onset mitral valve regurgitation Brief clinical history:: this is a 59-year-old man who recently presented with shortness of breath was found to be AFib with moderately rapid ventricular response. By history he was felt to be in atrial fibrillation for possibly 1-2 months. He became asymptomatic with rate control. The echocardiogram in the hospital demonstrated good left ventricular systolic function but thickened mitral valve leaflets with severe MR. Because he is felt to be a candidate for probable mitral valve repair /replacement right left heart catheterization has now been scheduled as an outpatient. Procedure Procedure performed:: Right and left heart catheterization Sedation/Medication given:: fentanyl 50 mg Versed 2 mg case start time 9:03 a.m. case end time 9:29 a.m. sedation provided by Kezia Brito RN, trained observer Access site:: right femoral artery, right femoral vein Estimated blood loss:: 15-20 cc Procedure note:: patient was brought to the cardiac catheterization lab in the postabsorptive state the right femoral triangle was prepared and draped in usual fashion. Anesthesia was provided with 1% lidocaine infiltrated locally. Using the modified Seldinger technique and placed a 5 Tristanian sheath into the right common femoral artery and a 7 Tristanian sheath into the right femoral vein. I then used a balloon tip Kyles Ford-Yariel catheter to perform right-sided hemodynamics. The thermodilution cardiac output computer was not functioning properly and so a Kiki cardiac output was collected. After this the Kyles Ford-Yariel catheter was removed. Left heart catheterization was then carried out using 5 Tristanian angle pigtail catheter to document left-sided hemodynamics and to injected LV g in the 30 degree HUNTLEY projection. After this I used standard 5 Tristanian FL4 and JR4 catheters to engage inject the left and right coronary arteries in multiple projections. The procedure was then terminated angiogram was done of the femoral artery through the sheath after which an Angio-Seal device was deployed with a good hemostatic result. The venous sheath was removed with manual compression and the geoscience laboratory technician. Patient tolerated procedure well renal apparent complications. The patient left geoscience laboratory technician with no evidence of a groin hematoma. Findings:: Hemodynamics: Right atrium 9 mmHg. Right ventricle 55 over 6 end-diastolic 12. Pulmonary artery 55 over 27. Mean pulmonary capillary wedge pressure 27. Central aorta 122/77 left ventricle 122/0 end-diastolic 24. There is no gradient across the aortic valve upon pullback. Kiki cardiac output is 4.42 liters/minute giving an index of 2.04. Left ventricle: The LV is normal in size all segments contract appropriately the ejection fraction is 50-55% by visual estimation. There is angiographically 3 to 4+ mitral regurgitation. The left main coronary is nicely patent the LAD is a moderate caliber artery extending down to the apex the LAD and its branches are angiographically unremarkable the circumflex is a moderate caliber vessel giving rise to the marginal branches the circumflex system and the branches are smooth and angiographically unremarkable the right coronary artery is large in caliber dominant to the posterior circulation right coronary artery the RPDA and PL branches are smooth and angiographically unremarkable Conclusion:: 1. right coronary dominant circulation with no evidence of CAD 2. preserved left ventricular systolic function 3. severe mitral valve regurgitation as was seen on echocardiogram as well 4. secondary pulmonary hypertension with moderately elevated LVEDP, adequate cardiac output 5. Angio-Seal to right femoral artery puncture site Harshil Garcia MD [facility]
--- NOTE | 2020-03-27 09:55 | SUR.PHASEII ---
BEGIN PHASE II RECOVERY. RETURNS TO [facility] 7 VIA STRETCHER S/P R/C W/ DR. RAMÍREZ. TRANSFERRED TO BED, PLACED ON BEDSIDE MONITORING. MONITOR AFIB. FULLY AWAKE AND ALERT. DENIES CP OR SOB. RIGHT GROIN SITE W/ C/D/I GUAZE AND TEGADERM DRESSING OVER BOTH FEMORAL AND VENOUS PUNCTURE SITES. R. FEMORAL PUNCTURE ALSO W/ ANGIOSEAL CLOSURE DEVICE. R. GROIN SOFT, NONTENDER. NO BLEEDING OR HEMATOMA NOTED. R. PEDAL PULSE PALP STRONG. REVIEWED FREQUENT VS AND GROIN CHECKS W/ PT AND . ALSO REVIEWED BEDREST ACTIVITY RESTRICTIONS W/ PT. AND . BOTH VOICED UNDERSTANDING. BEDREST X [address] RAMÍREZ TO BEDSIDE TO SPEAK W/ PT AND RE: RESULTS. WILL CONTINUE TO MONITOR.
--- NOTE | 2020-03-27 11:45 | SUR.PHASEII ---
2 HOURS BEDREST COMPLETE. R. GROIN SITE SOFT, NONTENDER. NO BLEEDING OR HEMATOMA. DRESSING C/D/I. R. PEDAL PULSE STRONG. MONITOR AFIB. DANGLED AT BEDSIDE, AMBULATED TO BATHROOM, VOIDED WITHOUT DIFFICULTY. RETURNED TO RECLINER AT BEDSIDE. VS AND R. GROIN SITE UNCHANGED AFTER ACTIVITY. WILL CONTINUE TO MONITOR.
--- NOTE | 2020-03-27 13:30 | SUR.PHASEII ---
END PHASE II RECOVERY. NO CHANGE R. GROIN SITE. R. PEDAL PULSE PALP STRONG. REVIEWED DISCHARGE INSTRUCTIONS W/ PT AND . VOICED UNDERSTANDING. DISCHARGED PT. HOME, OUT VIA WC TO 'S WAITING CAR, WITH ALL PERSONAL BELONGINGS AND DISCHARGE PACKET. NO DISTRESS NOTED. NO C/O VOICED.
== END 2020-03-27 13:30 | disposition home or self-care (01) ==
PROVIDERS: PCP Family Medicine; Visit Provider Specialist
PROC: 4A023N8 Measurement of Cardiac Sampling and Pressure, Bilateral, Percutaneous Approach (ICD-10-PCS; CPT 93453; principal; 2020-03-27 08:30)
DX: Z01.810 Encounter for preprocedural cardiovascular examination (principal); I48.91 Unspecified atrial fibrillation; I34.0 Nonrheumatic mitral (valve) insufficiency; I27.20 Pulmonary hypertension, unspecified; I10 Essential (primary) hypertension; F41.9 Anxiety disorder, unspecified; Z79.01 Long term (current) use of anticoagulants; F17.210 Nicotine dependence, cigarettes, uncomplicated; F12.90 Cannabis use, unspecified, uncomplicated
CPT/HCPCS: 36415; 80048; 85025; 85610; 93460; C1760; C1769; C1887; C1894; G0269; J1644; J2250; J3010; J7040

== ENCOUNTER → 2020-09-19 12:29 | Outpatient (CLI) | payer BC, SELFPAY ==
--- NOTE | ~2020-09-19 | XR_ITS ---
EXAMINATION: XR knee LT min 4V DATE: 09/19/2020 13:09 INDICATION: Left knee injury and pain. TECHNIQUE: 4 views of left knee were obtained. COMPARISON: Left knee radiographs 12/12/2015 FINDINGS: There is a medial compartment arthroplasty in near-anatomic alignment. No periprosthetic silke cency to suggest loosening or infection. No fracture. There is moderate osteoarthritis of lateral com partment and mild osteoarthritis of patellofemoral compartment. There is an enthesophyte at the proxi mal attachment of medial collateral ligament. There is a moderate-sized knee joint effusion. IMPRESSION: 1. Medial compartment arthroplasty in near-anatomic alignment. 2. Moderate left knee osteoarthritis. 3. Moderate-sized knee joint effusion. Reviewed, dictated and finalized at location A.
== END ==
PROVIDERS: PCP Family Medicine; Visit Provider Nurse Practitioner Family
DX: M17.12 Unilateral primary osteoarthritis, left knee (principal); M25.462 Effusion, left knee
CPT/HCPCS: 73564

== ENCOUNTER → 2021-07-14 07:46 | Outpatient (CLI) | payer BC, SELFPAY ==
[2021-07-14 17:38] LABS: SARS-CoV-2 RNA PCR Negative
== END ==
PROVIDERS: PCP Family Medicine; Visit Provider Internal Medicine Gastroenterology
DX: Z01.812 Encounter for preprocedural laboratory examination (principal); Z20.822 Contact with and (suspected) exposure to COVID-19
CPT/HCPCS: C9803; U0003; U0005

== ENCOUNTER 2021-07-16 01:06 | Day surgery (SDC) | payer BC, SELFPAY ==
[2021-06-17 14:06] VITALS: BMI 25.4
--- NOTE | 2021-07-08 11:58 | PC.NURSE ---
SPOKE WITH DARCY, STATES NO MEDICATION OR HEALTH CHANGES, REVIEWED COVID TESTING AND TIMES FOR PROCEDURE. STATES THEY HAVE THE INSTRUCTIONS FOR BRIDGING HIS WARFARIN PRIOR TO PROCEDURE.
--- NOTE | 2021-07-15 17:05 | PM.HPGS ---
History of Present Illness History of Present Illness Consent: Risks, benefits, and alternatives have been discussed and questions answered. Patient agrees to proceed with procedure. Chief complaint: esophagitis, neoplasm screening Narrative: Aly Starr is a 60 year old male suffers from chronic acid reflux disease. He had esophagitis seen on a previous EGD. He also is due for colon cancer screening, his last exam was 10 years ago. Based on conversation with him, it is difficult to know whether he finished all of his prep for the colonoscopy. Likewise he could not remember when he took his last dose of Coumadin and switched to Lovenox, stating that my handles that Review of Systems Review of Systems: All systems reviewed & are unremarkable except as noted in HPI and below PMFSH Past Medical History Medical History (Updated 04/29/21 @ 11:14 by Kevin Mac MD) Anxiety BMI 25.0-25.9,adult Esophagitis Hypertension Osteoarthritis Screen for colon cancer Screening for prostate cancer Tobacco abuse disorder Surgical History Surgical History Heart valve replaced History of total right knee replacement 2010 Status post left partial knee replacement 1999 Family History Family History Father , 80 years old Dementia Atrial fibrillation Mother , 72 years old CHF (congestive heart failure) Sibling Obesity Diabetes mellitus Obstructive sleep apnea Social History Social History Social History: He lives in [facility] with his of 32 years. He retired in the early spring. 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 He started smoking at 45 years of age and has smoked between 1-1.5 packs per day. He drinks 2 or 3 beers several times a week. He uses 2 or 3 marijuana joints a week. He has 1 son and 1 daughter. The patient has 2 brothers and 2 sisters. His 1 brother is obese and has diabetes and obstructive sleep apnea. His remaining siblings are relatively healthy. Primary care physician: Dr. 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 Gender identity (if verbalized by the patient): Male Spiritual care concerns: No Meds Home Medications and Allergies Home Medications Medication Instructions Recorded Confirmed Type alprazolam 0.25 mg tablet 0.25 mg PO DAILY PRN #30 tablet 09/30/20 07/16/21 Rx sacubitril 49 mg-valsartan 51 mg 1 tablet PO BID #1 tablet 01/07/21 07/16/21 Rx tablet furosemide 40 mg tablet 40 mg PO QAM #90 tablet 04/23/21 07/16/21 Rx paroxetine HCl 10 mg tablet 10 mg PO DAILY #90 tablet 04/23/21 07/16/21 Rx oxycodone-acetaminophen 10 mg-325 1 tablet PO DAILY@0800 PRN #90 04/30/21 07/16/21 Rx mg tablet tablet omeprazole 20 mg capsule,delayed 20 mg PO DAILY #90 cap 05/14/21 07/16/21 Rx release aspirin [Adult Low Dose Aspirin] 81 mg PO DAILY 06/17/21 07/16/21 History bupropion HCl (smoking deter) 150 mg PO BID 06/17/21 07/16/21 History carvedilol 6.25 mg PO BID 06/17/21 07/16/21 History empagliflozin [Jardiance] 10 mg PO DAILY 06/17/21 07/16/21 History paroxetine HCl 40 mg PO DAILY 06/17/21 07/16/21 History warfarin 1 mg PO QTUTHSU 06/17/21 07/16/21 History warfarin 6 mg PO QTUTHSU 06/17/21 07/16/21
[2021-07-16 06:58] VITALS: BMI 25.7
[2021-07-16] MEDS: LACTATED RINGERS 1,000 ML 150 ML IV CONT (07:10)
--- NOTE | 2021-07-16 07:29 | WPDANESEPPF ---
Anes - Initial Pre Proc Eval Procedure: Operation Date: 07/16/21 08:00 Proposed Procedures p Esophagogastroduodenoscopy & Screening Colonoscopy - Avery Helms MD Date/Time: 07/16/21 07:29 Surgeon: Avery Helms MD Pre Op Diagnosis: esophagitis, neoplasm screening Patient Data Age: 60 Gender: M Height: 1.88 m Weight: 91.1 kg Allergies Allergy/AdvReac Type Severity Reaction Status Date / Time Penicillins Allergy Unknown Rash Verified 07/16/21 06:56 Home Medications Medication Instructions Recorded Confirmed Type alprazolam 0.25 mg tablet 0.25 mg PO DAILY PRN #30 tablet 09/30/20 07/16/21 Rx sacubitril 49 mg-valsartan 51 mg 1 tablet PO BID #1 tablet 01/07/21 07/16/21 Rx tablet furosemide 40 mg tablet 40 mg PO QAM #90 tablet 04/23/21 07/16/21 Rx paroxetine HCl 10 mg tablet 10 mg PO DAILY #90 tablet 04/23/21 07/16/21 Rx oxycodone-acetaminophen 10 mg-325 1 tablet PO DAILY@0800 PRN #90 04/30/21 07/16/21 Rx mg tablet tablet omeprazole 20 mg capsule,delayed 20 mg PO DAILY #90 cap 05/14/21 07/16/21 Rx release aspirin [Adult Low Dose Aspirin] 81 mg PO DAILY 06/17/21 07/16/21 History bupropion HCl (smoking deter) 150 mg PO BID 06/17/21 07/16/21 History carvedilol 6.25 mg PO BID 06/17/21 07/16/21 History empagliflozin [Jardiance] 10 mg PO DAILY 06/17/21 07/16/21 History paroxetine HCl 40 mg PO DAILY 06/17/21 07/16/21 History warfarin 1 mg PO QTUTHSU 06/17/21 07/16/21 History warfarin 6 mg PO QTUTHSU 06/17/21 07/16/21 History warfarin 10 mg PO QMWFSA 06/17/21 07/16/21 History spironolactone 25 mg tablet 25 mg PO DAILY #30 tablet 06/21/21 07/16/21 Rx Laboratory Tests 07/16/21 07:07 PT Pending INR Pending Patient hx anesthesia problems: none Family hx anesthesia problems: none Results Review: All pre-operative results and documents have been reviewed as part of the pre-operative evaluation. [facility] Past Medical History Medical History Anxiety BMI 25.0-25.9,adult Esophagitis Hypertension Osteoarthritis Screen for colon cancer Screening for prostate cancer Tobacco abuse disorder Surgical History Surgical History Heart valve replaced History of total right knee replacement 2009 Status post left partial knee replacement 1999 Family History Family History Father , 80 years old Dementia Atrial fibrillation Mother , 72 years old CHF (congestive heart failure) Sibling Obesity Diabetes mellitus Obstructive sleep apnea Social History Social History Social History: He lives in [facility] with his of 32 years. He retired in the early spring. 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 He started smoking at 45 years of age and has smoked between 1-1.5 packs per day. He drinks 2 or 3 beers several times a week. He uses 2 or 3 marijuana joints a week. He has 1 son and 1 daughter. The patient has 2 brothers and 2 sisters. His 1 brother is obese and has diabetes and obstructive sleep apnea. His remaining siblings are relatively healthy. Primary care physician: Dr. 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
[2021-07-16 07:31] LABS: Prothrombin Time 13.2 Seconds (11.1-14.7)
--- NOTE | 2021-07-16 08:15 | SUR.OPER ---
EGD ENDED 808, COLONOSCOPY STARTED 814
[2021-07-16 08:35] VITALS: BP 82/54; PULSE 75; RESP 24; O2SAT 91
[2021-07-16 08:45] VITALS: BP 106/75; PULSE 68; RESP 17; O2SAT 97
[2021-07-16 08:55] VITALS: BP 115/86; PULSE 75; RESP 18; O2SAT 96
== END 2021-07-16 09:15 | disposition home or self-care (01) ==
PROVIDERS: PCP Family Medicine; Visit Provider Internal Medicine Gastroenterology
PROC: 0DJ08ZZ Inspection of Upper Intestinal Tract, Via Natural or Artificial Opening Endoscopic (ICD-10-PCS; CPT 43235; principal; 2021-07-16 08:00)
DX: Z12.11 Encounter for screening for malignant neoplasm of colon (principal); D12.4 Benign neoplasm of descending colon; K51.90 Ulcerative colitis, unspecified, without complications; K22.70 Barrett's esophagus without dysplasia; K21.00 Gastro-esophageal reflux disease with esophagitis, without bleeding; K44.9 Diaphragmatic hernia without obstruction or gangrene; I10 Essential (primary) hypertension; F41.9 Anxiety disorder, unspecified; Z79.82 Long term (current) use of aspirin; Z79.891 Long term (current) use of opiate analgesic; Z79.01 Long term (current) use of anticoagulants; Z95.4 Presence of other heart-valve replacement; F17.210 Nicotine dependence, cigarettes, uncomplicated; F12.90 Cannabis use, unspecified, uncomplicated
CPT/HCPCS: 45381; 45385; 45380; 43239; 36415; 85610; 88305; 88342; J2704; J3370; J7120

== ENCOUNTER 2021-08-06 07:32 | Outpatient (CLI) | payer BC, SELFPAY ==
--- NOTE | ~2021-08-06 | CT_ITS ---
EXAMINATION: CT abdomen pelvis w con INDICATION: Abdominal mass found in the umbilical region with ultrasound TECHNIQUE: Computed tomographic images of the abdomen and pelvis were obtained after the administrati on of 100 cc of Omnipaque 350 intravenous contrast. The dose-length product (DLP) was 613.11 mGy-cm. Automated exposure control and iterative reconstruction technique were employed. COMPARISON: None available FINDINGS: Minimal dependent atelectasis is present in the lung bases. The heart size is normal. Kang es of aortic and mitral valve surgery Punctate calcifications in an otherwise normal spleen likely re present healed granulomatous disease. There is a small sliding hiatal hernia. The liver, pancreas, ga llbladder, and adrenal glands are normal. Nonobstructing stones of the left kidney measure up to 6 mm . There are punctate nonobstructing stones of the right kidney. No stones are present in the ureters or bladder. There is no hydronephrosis or hydroureter. There is calcified atherosclerosis of the aort a and many of the other arteries. No pathologically enlarged abdominal or pelvic lymph nodes are iden tified. There is no free intraperitoneal gas or evidence of bowel obstruction. There is severe lumbar spondylosis. There is a fat-containing umbilical hernia. There is also a small midline epigastric he rnia containing fat. IMPRESSION: 1. Umbilical and epigastric hernias containing fat. No suspicious abdominal mass identified. 2. Bilateral nephrolithiasis. Reviewed, dictated and finalized at location A. [facility] ANTHROPOLOGIST IMPRESSION: 1. Umbilical and epigastric hernias containing fat. No suspicious abdominal mas s identified. 2. Bilateral nephrolithiasis.
[2021-08-06 08:19] LABS: Estimated Glomerular Filt Rate 56
== END 2021-08-06 07:33 | disposition home or self-care (01) ==
LOC: ANHIMG 07:34
PROVIDERS: PCP Family Medicine; Visit Provider Internal Medicine Gastroenterology
DX: N20.0 Calculus of kidney (principal); K42.9 Umbilical hernia without obstruction or gangrene
CPT/HCPCS: 74177; Q9967

== ENCOUNTER 2021-12-28 21:20 | Emergency (ER) | payer BC, SELFPAY ==
--- NOTE | ~2021-12-28 | XR_ITS ---
EXAMINATION: XR knee RT 3V, XR ankle RT min 3V, XR tibia fibula RT 2V DATE: 12/28/2021 22:46 INDICATION: Right lower leg pain with swelling and bruising from the knee through the ankle post trau ma TECHNIQUE: 1. Anteroposterior, oblique and crosstable lateral views of the right knee were obtained 2. AP and lateral views of the right lower leg were obtained. 3. AP, lateral, oblique and mortise views of the right ankle were obtained. COMPARISON: None. FINDINGS: Right total knee arthroplasty which appears well seated in near-anatomic alignment and with no surrou nding lucency to suggest loosening. There is a screw at the lateral epicondyle. Normal alignment at t he right ankle. No fracture. No right knee or ankle joint effusion/layering lipohemarthrosis. Diffuse soft tissue swelling about the right lower leg and ankle. No radiopaque foreign bodies. IMPRESSION: 1. Expected appearance of a right total knee arthroplasty. No acute osseous abnormality at the right knee, lower leg or ankle. Reviewed, dictated and finalized at location A. IMPRESSION: 1. Expected appearance of a right total knee arthroplasty. No acute osseous abn ormality at the right knee, lower leg or ankle. IMPRESSION: 1. Expected appearance of a right total knee arthroplasty. No acute osseous abn ormality at the right knee, lower leg or ankle.
[2021-12-28 21:48] VITALS: BP 122/80; PULSE 72; RESP 17; TEMP 36.9; O2SAT 99
[2021-12-28 22:53] LABS: Basophils Percent Auto 0.6 % (0.2-1.2); Eosinophils Absolute Auto 0.1 K/mm3 (0-0.3); Eosinophils Percent Auto 2.1 % (0-4.4); Hematocrit 37.7 % (42.0-52.0); Hemoglobin 12.5 g/dL (14.0-18.0); Immature Granulocyte Absolute 0.02 K/mm3 (0.00-0.031); Immature Granulocyte Percent A 0.3 % (0-0.5); Lymphocytes Absolute Auto 1.86 K/mm3 (0.9-3.2); Lymphocytes Percent Auto 28.4 % (18.3-44.2); Mean Corpuscular HGB Conc 33.2 g/dl (32-36); Mean Corpuscular Hemoglobin 34.7 pg (26-34); Mean Corpuscular Volume 104.7 fl (80-100); Mean Platelet Volume 9.5 fl (7.4-10.4); Monocytes Absolute Auto 1.1 K/mm3 (0.1-0.6); Monocytes Percent Auto 16.4 % (2.6-8.5); Neutrophils Absolute Auto 3.4 K/mm3 (1.3-6.7); Neutrophils Percent Auto 52.2 % (45.5-73.1); Platelet Count Result 259 k/mm3 (150-375); Red Cell Distribution Width 14.4 % (11.5-14.5); White Blood Count 6.5 K/mm3 (4.5-10.0)
[2021-12-28 23:04] LABS: Alanine Aminotransferase 15 U/L (6-50); Albumin Level 3.9 g/dL (3.5-5.1); Alkaline Phosphatase 66 U/L (38-126); Anion Gap 5 mmol/L (8-16); Aspartate Amino Transferase 24 U/L (17-59); Bilirubin,Total 0.3 mg/dL (0.2-1.3); Blood Urea Nitrogen 15 mg/dL (9-20); Calcium 8.1 mg/dL (8.4-10.2); Carbon Dioxide 23 mmol/L (22-30); Chloride 105 mmol/L (98-107); Estimated CRCL calculation 67 ml/min; Estimated Glomerular Filt Rate > 60; Glucose 90 mg/dL (65-110); Potassium 4.1 mmol/L (3.4-5.0); Sodium 133 mmol/L (137-145)
[2021-12-28 23:09] LABS: INR 4.3
[2021-12-28 23:10] LABS: Partial Thromboplastin Time 54.8 SECONDS (22.3-36.8)
--- NOTE | 2021-12-29 00:06 | ED.GENADULT ---
HPI - General Adult General Chief complaint: Extremity Injury, Lower Stated complaint: LLE injury Time Seen by Provider: 12/28/21 22:18 History of Present Illness HPI narrative: Patient is a 61-year-old gentleman who presents the emergency department with chief complaint of swelling of the right lower extremity. Patient reports that several days ago he was working on his deck had a small short distance fall and scraped his salgado. Patient states that he is on Coumadin and has noticed today that his legs become more swollen and he is got bruising present around his ankle. Patient states he was concerned that he may have a blood clot or that his blood may be too thin. Related Data Home Medications Medication Instructions Recorded Confirmed aspirin 81 mg tablet 81 mg PO DAILY 06/17/21 08/21/21 bupropion HCl (smoking deter) 150 150 mg PO BID 06/17/21 08/21/21 mg tablet,12 hr sustained-release(smoking deterrent) carvedilol 6.25 mg tablet 6.25 mg PO BID 06/17/21 08/21/21 empagliflozin 10 mg tablet 10 mg PO DAILY 06/17/21 08/21/21 (Jardiance) warfarin 1 mg tablet 1 mg PO QTUTHSU 06/17/21 08/21/21 Allergies Allergy/AdvReac Type Severity Reaction Status Date / Time Penicillins Allergy Unknown Rash Verified 12/28/21 21:45 Review of Systems Review of Systems: A 10 system review of systems was completed on the patient and is negative except for what is stated in the HPI. Nursing and ancillary documentation was reviewed. [facility] Past Medical History Medical History Anxiety BMI 25.0-25.9,adult Esophagitis Hypertension Osteoarthritis Screen for colon cancer Screening for prostate cancer Tobacco abuse disorder Surgical History Surgical History Heart valve replaced History of total right knee replacement 2009 Status post left partial knee replacement 1999 Family History Family History Father , 80 years old Dementia Atrial fibrillation Mother , 72 years old CHF (congestive heart failure) Sibling Obesity Diabetes mellitus Obstructive sleep apnea Social History Social History (Reviewed 12/29/21 @ 00:08 by AV Cruz Social History: He lives in [facility] with his of 32 years. He retired in the early spring. 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 He started smoking at 45 years of age and has smoked between 1-1.5 packs per day. He drinks 2 or 3 beers several times a week. He uses 2 or 3 marijuana joints a week. He has 1 son and 1 daughter. The patient has 2 brothers and 2 sisters. His 1 brother is obese and has diabetes and obstructive sleep apnea. His remaining siblings are relatively healthy. Primary care physician: Dr. 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 HEAD: Normocephalic, atraumatic. EYES: PERRLA and EOMI. ENT: Nares clear, no rhinorrhea or epistaxis. Mucous membranes moist. NECK: Supple. CHEST: Clear to auscultation. No respiratory distress. HEART: Regular rate and rhythm. No murmur heard. Normal peripheral pulses. ABDOMEN: Soft,
[2021-12-29 00:32] VITALS: BP 119/79; PULSE 75; RESP 18; O2SAT 93
== END 2021-12-29 00:30 | disposition home or self-care (01) ==
PROVIDERS: Emergency Provider Emergency Medicine; PCP Family Medicine
DX: S93.401A Sprain of unspecified ligament of right ankle, initial encounter (principal); S80.811A Abrasion, right lower leg, initial encounter; I10 Essential (primary) hypertension; M19.90 Unspecified osteoarthritis, unspecified site; F41.9 Anxiety disorder, unspecified; Z79.01 Long term (current) use of anticoagulants; Z79.82 Long term (current) use of aspirin; Z96.653 Presence of artificial knee joint, bilateral; Z95.2 Presence of prosthetic heart valve; F17.210 Nicotine dependence, cigarettes, uncomplicated; Z79.84 Long term (current) use of oral hypoglycemic drugs; W19.XXXA Unspecified fall, initial encounter
CPT/HCPCS: 36415; 73562; 73590; 73610; 80053; 85025; 85610; 85730; 99284

== ENCOUNTER 2022-09-30 13:34 | Outpatient (RCR) | payer BC, SELFPAY ==
[2022-09-30 14:33] LABS: INR 1.7; Prothrombin Time 19.3 Seconds (11.1-14.7)
== END 2022-12-29 23:59 | disposition home or self-care (01) ==
LOC: ANHLAB 13:34
PROVIDERS: PCP Family Medicine; Visit Provider Internal Medicine Cardiovascular Disease
DX: Z51.81 Encounter for therapeutic drug level monitoring (principal); I48.0 Paroxysmal atrial fibrillation; Z95.2 Presence of prosthetic heart valve; Z79.01 Long term (current) use of anticoagulants
CPT/HCPCS: 36415; 85610

== ENCOUNTER 2022-12-08 14:23 | Outpatient (CLI) | payer BC, SELFPAY ==
--- NOTE | ~2022-12-08 | XR_ITS ---
EXAMINATION: XR chest 2V Exam Date/Time: 12/08/2022 14:45 CDT HISTORY: J20.9 - Acute bronchitis, unspecified Comparison: 03/16/2020 and 11/10/2019. RESULT: Lines, tubes, and devices: Median sternotomy wires. Lungs and pleura: Cardiac valve replacements. Cardiomediastinal silhouette: Emphysematous changes. Calcified left midlung granuloma.. Other: No acute osseous or upper abdominal finding. IMPRESSION: No acute cardiopulmonary process. Reviewed, dictated and finalized at location K.
[2022-12-08 15:12] LABS: Anion Gap 8 mmol/L (8-16); Basophils Percent Auto 0.2 % (0.2-1.2); Blood Urea Nitrogen 16 mg/dL (9-20); Calcium 9.6 mg/dL (8.4-10.2); Carbon Dioxide 30 mmol/L (22-30); Chloride 100 mmol/L (98-107); Estimated Glomerular Filt Rate > 60; Glucose 113 mg/dL (65-110); Hematocrit 45.3 % (42.0-52.0); Hemoglobin 14.8 g/dL (14.0-18.0); Immature Granulocyte Absolute 0.16 K/mm3 (0.00-0.031); Immature Granulocyte Percent A 1.1 % (0-0.5); Lymphocytes Absolute Auto 0.91 K/mm3 (0.9-3.2); Lymphocytes Percent Auto 6.4 % (18.3-44.2); Mean Corpuscular HGB Conc 32.7 g/dl (32-36); Mean Corpuscular Hemoglobin 34.7 pg (26-34); Mean Corpuscular Volume 106.3 fl (80-100); Mean Platelet Volume 9.6 fl (7.4-10.4); Monocytes Absolute Auto 1.7 K/mm3 (0.1-0.6); Monocytes Percent Auto 11.9 % (2.6-8.5); Neutrophils Absolute Auto 11.3 K/mm3 (1.3-6.7); Neutrophils Percent Auto 80.4 % (45.5-73.1); Platelet Count Result 378 k/mm3 (150-375); Potassium 5.3 mmol/L (3.4-5.0); Red Blood Count 4.26 M/mm3 (4.6-6.20); Red Cell Distribution Width 13.3 % (11.5-14.5); Sodium 138 mmol/L (137-145); White Blood Count 14.1 K/mm3 (4.5-10.0)
[2022-12-08 15:47] LABS: Burr Cells 1+ (NORMAL); Macrocytosis 1+ (NORMAL); Platelet Estimate Adequate (Adequate); Schistocytes None Seen (NORMAL)
== END 2022-12-08 14:24 | disposition home or self-care (01) ==
PROVIDERS: PCP Family Medicine; Visit Provider Family Medicine
DX: J20.9 Acute bronchitis, unspecified (principal)
CPT/HCPCS: 36415; 71046; 80048; 85025

== ENCOUNTER → 2023-03-10 15:02 | Outpatient (CLI) | payer BC, SELFPAY ==
--- NOTE | ~2023-03-10 | XR_ITS ---
EXAMINATION: XR hip BI 2V w AP pelvis DATE: 03/10/2023 15:33 INDICATION: Pain after fall TECHNIQUE: AP view the pelvis and two views of each hip were obtained. COMPARISON: None. FINDINGS: Bone alignment is normal. There is no fracture. The soft tissues are unremarkable. IMPRESSION: 1. No acute osseous abnormality. Reviewed, dictated and finalized at location F.
--- NOTE | ~2023-03-10 | XR_ITS ---
XR shoulder LT min 2V 03/10/2023 15:33 Indication: Left shoulder pain Procedure: 4 views left shoulder Comparison: No prior studies for comparison. Findings: There is moderate polyarticular osteoarthritis of the left shoulder. No fracture or traumat ic malalignment. Osteopenia. Status post median sternotomy. There is calcified granuloma left mid tho rax. Impression: 1: Moderate polyarticular osteoarthritis of the left shoulder. Reviewed, dictated and finalized at location B. Impression: 1: Moderate polyarticular osteoarthritis of the left shoulder.
== END ==
PROVIDERS: PCP Nurse Practitioner Family; Visit Provider Nurse Practitioner Family
DX: R10.31 Right lower quadrant pain (principal); M19.012 Primary osteoarthritis, left shoulder
CPT/HCPCS: 73030; 73521

== ENCOUNTER 2024-08-25 09:35 | Outpatient (CLI) | payer BC, MEDICARE, SELFPAY ==
--- NOTE | ~2024-08-25 | XR_ITS ---
EXAMINATION: XR ribs BI 3V w CXR 2V DATE: 08/25/2024 10:08 INDICATION: Unspecified injury of thorax, initial encounter. Left rib pain. TECHNIQUE: Frontal and lateral views of the chest and 2 views of the left ribs and 2 views of the rig ht ribs on a total of 11 radiographs were obtained. COMPARISON: Chest 2 views 12/08/2022 FINDINGS: CHEST TWO VIEWS: A calcified left lung nodule is consistent with old granulomatous disease. There are airspace opacities at left lung base. There is a small left pleural effusion. No pneumothorax. The h eart size is normal. There are changes of heart valve replacement. There is gas in left chest wall. BILATERAL RIBS: There are fractures of left seventh, eighth, and ninth ribs. IMPRESSION: 1. Fractures of left seventh-ninth ribs. 2. Small left pleural effusion. 3. Airspace opacities at left lung base, consistent with atelectasis versus contusion. Reviewed, dictated and finalized at location L. IMPRESSION: 1. Fractures of left seventh-ninth ribs. 2. Small left pleural effusion. 3. Airspace opacities at left lung base, consistent with atelectasis versus con tusion.
== END 2024-08-25 09:36 | disposition home or self-care (01) ==
PROVIDERS: PCP Family Medicine; Visit Provider Nurse Practitioner Family
DX: J90 Pleural effusion, not elsewhere classified (principal); S22.42XD Multiple fractures of ribs, left side, subsequent encounter for fracture with routine healing; X58.XXXD Exposure to other specified factors, subsequent encounter
CPT/HCPCS: 71046; 71110

== ENCOUNTER 2024-10-31 17:15 | Inpatient (IN) | payer BC, MEDICARE, SELFPAY ==
[2024-10-31] VITALS (14 sets, daily range): BP systolic 112–134; BP diastolic 81–92; PULSE 86–102; RESP 13–22; TEMP 36.5–37.1; O2SAT 95–100; BMI 25.4
--- NOTE | ~2024-10-31 | XR_ITS ---
CHEST RADIOGRAPH CLINICAL HISTORY: post thora . COMPARISON: 10/31/2024 TECHNIQUE: Single portable view of the chest. FINDINGS Sternal wires and mediastinal clips are identified, the wires are midline and intact. Annular ring projects in the mitral position. The remainder of the cardiomediastinal silhouette is otherwise unremarkable. Decreased left-sided pleural effusion when compared with previous examination. No left-sided pneumothorax is appreciated. Redemonstration of left-sided lung fractures. IMPRESSION: Improved left-sided pleural effusion without left-sided pneumothorax following left-sided thoracentes is. Reviewed, dictated and finalized at location A. IMPRESSION: Improved left-sided pleural effusion without left-sided pneumothorax following left-sided thoracentesis.
--- NOTE | ~2024-10-31 | XR_ITS ---
CHEST RADIOGRAPH, PA AND LATERAL CLINICAL HISTORY: sob. OPEN HEART SX X 5 YRS . COMPARISON: 12/08/2022 TECHNIQUE: PA and lateral views of the chest. FINDINGS Sternal wires and mediastinal clips are identified, the wires are midline and intact. Annular ring projects over the mitral position. The remainder of the cardiomediastinal silhouette is otherwise unremarkable. A large left-sided pleural effusion is identified, an interval change from prior. Calcified granuloma within the left upper lobe. The remainder of the lungs are clear. IMPRESSION: Large left-sided pleural effusion without focal infiltrate. Reviewed, dictated and finalized at location A.
--- NOTE | ~2024-10-31 | XR_ITS ---
CHEST RADIOGRAPH, PA AND LATERAL CLINICAL HISTORY: follow up pleural effusion left side . COMPARISON: 11/07/2024 TECHNIQUE: PA and lateral views of the chest. FINDINGS Sternal wires and mediastinal clips are identified, the wires are midline and intact. Annular ring in the mitral position. Possibly a ventricular septal defect closure device detected on lateral view, unchanged from prior. The remainder of the cardiomediastinal silhouette is otherwise unremarkable. Redemonstration of a left-sided pleural effusion, small in quantity. The remainder of the lungs are clear. IMPRESSION: Small left-sided pleural effusion only minimally increased from the previous examination performed fo llowing thoracentesis on 11/07/2024 Reviewed, dictated and finalized at location A. IMPRESSION: Small left-sided pleural effusion only minimally increased from the previous ex amination performed following thoracentesis on 11/07/2024
--- NOTE | ~2024-10-31 | CT_ITS ---
CLINICAL INDICATION: Left-sided pleural effusion COMPARISON: Reference is made to a plain film evaluation of the chest, performed the same day.. TECHNIQUE: Multiple contiguous axial images of the chest was performed following the administration o f intravenous contrast. This CT examination was performed utilizing dose reduction techniques. DLP: 300 mGy-cm FINDINGS/OBSERVATIONS: LUNG: Large left-sided pleural effusion is identified with adjacent compressive atelectasis. Redemonstration of a calcified granuloma within the superior segment of the left lower lobe. The remainder of the lungs are clear. HEART: The heart is of normal size, without pericardial effusion. MEDIASTINUM: No pathologically enlarged or morphologically suspicious lymph nodes are identified within the medias tinum, bilateral axilla, within the soft tissues of the anterior chest wall. SOFT TISSUES OF THE CHEST: Unremarkable. BONES OF THE CHEST: No acute fracture. No lytic or blastic lesions are identified. Heterogeneous attenuation of the bones of the cervical spine, for which clinical correlation is neede d. IMPRESSION: Large left-sided pleural effusion with adjacent compressive atelectasis, unchanged from plain film ev aluation performed approximately 90 minutes earlier Reviewed, dictated and finalized at location A. IMPRESSION: Large left-sided pleural effusion with adjacent compressive atelectasis, unchan ged from plain film evaluation performed approximately 90 minutes earlier
--- NOTE | ~2024-10-31 | US_ITS ---
EXAMINATION: US thoracentesis DATE: 11/07/2024 12:17 INDICATION: Left pleural effusion TECHNIQUE: The procedure and its risks and benefits were discussed with the patient. Potential risks discussed included bleeding, infection, and pneumothorax. The patient understood the risks and agreed to proceed. The skin was prepped and draped in sterile fashion. 1% lidocaine was used for local anes thesia. Under ultrasound guidance, a 5 Fr catheter with trochar was advanced into the left pleural ef fusion. Fluid was aspirated. The catheter was removed, and a dressing was applied. There were no imme diate complications. FINDINGS: Ultrasound images demonstrate a moderate to large left pleural effusion and the catheter within the f luid. IMPRESSION: 1. Successful ultrasound-guided thoracentesis yielding 1000 mL of dark maroon-colored fluid. Reviewed, dictated and finalized at location A. IMPRESSION: 1. Successful ultrasound-guided thoracentesis yielding 1000 mL of dark maroon- colored fluid.
--- NOTE | 2024-10-31 17:22 | ECG_ITS ---
Test Date: 2024-10-31 17:14:45 Measurements Intervals Schuyler Rate: 96 P: 196 MO: 215 QRS: -27 QRSD: 128 T: 68 QT: 359 QTc: 456 Interpretive Statements PROBABLE SINUS RHYTHM WITH FIRST DEGREE AV BLOCK POSSIBLE RIGHT VENTRICULAR CONDUCTION DELAY [RSR (QR) IN V1/V2] ANTEROSEPTAL MYOCARDIAL INFARCTION , OF INDETERMINATE AGE [40+ ms Q WAVE IN V1-V4] MODERATE T-WAVE ABNORMALITY, CONSIDER LATERAL ISCHEMIA [-0.1+ mV T-WAVE IN I/aVL/V5/V6] ABNORMAL ECG No previous ECG available for comparison Electronically Signed On 11-01-2024 08:19:53 CDT by Jose Jones M.D.
[2024-10-31 17:30] LABS: Basophils Absolute Auto 0.1 K/mm3 (0.0-0.1); Basophils Percent Auto 0.5 % (0.2-1.2); Eosinophils Percent Auto 0.4 % (0-4.4); Hematocrit 29.2 % (42.0-52.0); Hemoglobin 9.2 g/dL (14.0-18.0); Immature Granulocyte Absolute 0.06 K/mm3 (0.00-0.031); Immature Granulocyte Percent A 0.5 % (0-0.5); Lymphocytes Percent Auto 7.2 % (18.3-44.2); Mean Corpuscular HGB Conc 31.5 g/dl (32-36); Mean Corpuscular Hemoglobin 29.9 pg (26-34); Mean Corpuscular Volume 94.8 fl (80-100); Mean Platelet Volume 9.4 fl (7.4-10.4); Monocytes Absolute Auto 1.2 K/mm3 (0.1-0.6); Monocytes Percent Auto 10.8 % (2.6-8.5); Neutrophils Absolute Auto 8.9 K/mm3 (1.3-6.7); Neutrophils Percent Auto 80.6 % (45.5-73.1); Platelet Count Result 399 k/mm3 (150-375); Red Blood Count 3.08 M/mm3 (4.6-6.20); Red Cell Distribution Width 15.5 % (11.5-14.5)
[2024-10-31 17:41] LABS: Alanine Aminotransferase 42 U/L (6-50); Alkaline Phosphatase 89 U/L (38-126); Anion Gap 12 mmol/L (4-12); Aspartate Amino Transferase 54 U/L (17-59); Bilirubin,Total 0.7 mg/dL (0.2-1.3); Blood Urea Nitrogen 19 mg/dL (9-20); Calcium 8.5 mg/dL (8.4-10.2); Carbon Dioxide 21 mmol/L (22-30); Chloride 99 mmol/L (98-107); Estimated CRCL calculation 86 ml/min; Estimated Glomerular Filt Rate > 60; Glucose 107 mg/dL (65-110); Potassium 4.7 mmol/L (3.4-5.0); Sodium 132 mmol/L (137-145)
--- OUTSIDE RECORDS SUMMARY | 2024-10-31 19:04 | XMS_ITS | Clinical Summary ---
Author Organization [facility] [address] Address [address] [place] [address] Care Team Providers Care Cube Machine Tender Name Role Phone Kevin Mac MD Primary Care Provider [phone] Harshil Garcia MD Unavailable [phone] Gabriele Valencia MD Unavailable [phone] Allergies Active Allergy Reactions Criticality Noted Date Comments Penicillins Other (See comments) Reaction: UNKNOWN CHILDHOOD REACTION, Medications omeprazole (PriLOSEC) 20 mg capsule TK 1 C PO Q DAY 04/02/20 20 Active PARoxetine (PAXIL) 40 mg tablet TK 1 T PO Q DAY 03/14/20 20 Active aspirin 81 mg enteric coated tablet Take 1 tablet (81 mg total) by mouth daily 30 tablet 11 05/14/20 20 Active oxyCODONE (ROXICODONE) 5 mg immediate release tabletIndications: Pain Take 2 tablets (10 mg total) by mouth every 4 (four) hours as needed for pain Active warfarin (COUMADIN) 5 mg tabletIndications: Mechanical Valve Thromboembolism Prophylaxis Take 1.5 tablets (7.5 mg total) by mouth daily Follow the instructions of your provider. 45 tablet 05/27/20 20 Active Additional Information Patient taking differently: 1-1.5 tabletoral Daily,Follow the instructions of your provider.: patient to hold Coumadin 05/27. restart Coumadin 05/28 with the following instructions: 7.5mg on /WED/WED/SUN & 5mg on //., Indications: Mechanical Valve Thromboembolism Prophylaxis, Reported on 09/30/2022 PARoxetine (PAXIL) 10 mg tablet Take 1 tablet (10 mg total) by mouth every morning Active budesonide-formote roL (SYMBICORT) 160-4.5 mcg/actuation inhaler Inhale 2 puffs 2 (two) times a day Rinse mouth with water after use. Do not swallow. Active spironolactone (ALDACTONE) 25 mg tabletIndications: chronic heart failure Take 1 tablet (25 mg total) by mouth daily 30 tablet 11 01/09/20 21 Active warfarin (COUMADIN) 10 mg tablet Take 1 tablet (10 mg total) by mouth Active [id number] folate-algal 27 mg iron-1.13 mg-581.92 mg capsule Take by mouth Active warfarin (COUMADIN) 10 mg tablet Take 1 tablet (10 mg total) by mouth as directed Take one tablet daily except on Fridays or as directed 26 tablet 10/21/19 22 Active enoxaparin (LOVENOX) 100 mg/mL syringe Inject 1 mL (100 mg total) under the skin every 12 (twelve) hours 10 mL 1 10/21/19 22 Active varenicline tartrate (CHANTIX) 1 mg tabletIndications: Smoking Cessation Take 1 tablet (1 mg total) by mouth 2 (two) times a day Take with full glass of water. 60 tablet 3 10/01/19 23 Active Entresto 49-51 mg tablet TAKE 1 TABLET BY MOUTH TWICE DAILY 180 tablet 1 06/25/19 24 Active carvediloL (COREG) 6.25 mg tablet TAKE 1 TABLET(6.25 MG) BY MOUTH TWICE DAILY WITH MEALS 60 tablet 5 07/26/19 24 Active buPROPion XL (WELLBUTRIN XL) 150 mg 24 hr tablet TAKE 1 TABLET(150 MG) BY MOUTH EVERY MORNING 90 tablet 1 10/19/19 24 Active Jardiance 10 mg tablet TAKE 1 TABLET(10 MG) BY MOUTH DAILY 30 tablet 3 01/17/20 24 Active Active Problems Problem Noted Date Diagnosed Date High risk medication use 05/11/2020 Assessment & Plan (05/12/2020 10:30 AM JUSTICE PROFESSOR): Will be on Life-long coumadin Goal INR for [facility] MVR is 2.5-3.5 Pt has received vitamin K diet instructions Pharmacy education pending (medication interactions) Call PCP on Wednesday for possible INR follow-up. Leukocytosis 05/10/2020 Assessment & Plan (05/12/2020 10:29 AM JUSTICE PROFESSOR): Remains afebrile over past 24 hrs WBC up slightly (15.9 from 15.7) Incisions without redness or drainage UA negative 05/09 Encourage IS Hyperkalemia 05/10/2020 Assessment & Plan (05/10/2020 8:40 AM JUSTICE PROFESSOR): K+ level up to 5.0- holding aldactone today Will cont to follow Prolonged P-R interval 05/07/2020 Assessment & Plan (05/11/2020 10:08 AM JUSTICE PROFESSOR): Tele shows NSR EKG CT interval appears to be > 300 milliseconds Continue to follow Heart failure with preserved ejection fraction 1 06/28/2019 Assessment & Plan (05/12/2020 10:28 AM JUSTICE PROFESSOR): Holding on beta hector therapy due to long CT See Echo results on [facility] valve problem (above) Continue IV BID lasix, at present with aldactone Low K diet COPD (chronic obstructive pulmonary disease) Assessment & Plan (05/06/2020 9:41 AM JUSTICE PROFESSOR): Continue inhalers Using flutter valve and incentive spirometer Hx of mitral valve replacement with mechanical v alve 04/16/2020 Overview (04/16/2020): Added automatically from request for surgery [id number] Assessment & Plan (05/12/2020 10:25 AM JUSTICE PROFESSOR): S/p mechanical MVR (St Brandin 33), TV repair (Physio 34 ) and Maze on 04/14 Ongoing post-op care Repeat CXR 05/11 with results including: There are small left greater than right bilateral pleural effusions which has decreased in comparison to prior study. There is no pneumothorax or pulmonary edema. Echo w/ LVEF ~ 32% and MV gradient 8 (under review) Daily INR (goal 2.5-3.5) Planned discharge currently for 05/13/2020 Paroxysmal atrial fibrillation 04/16/2020 Overview (04/16/2020): Added automatically from request for surgery [id number] Assessment & Plan (05/12/2020 10:27 AM JUSTICE PROFESSOR): S/p MAZE 05/02/2020 Remains NSR Pulmonary hypertension Encounters Date Type Department Care Team Description 09/05/2024 Telephone [facility] Cardiology [address] [place] [address] Yannick Mcclellan MD from Last 3 Months Surgical History Surgery Date Site/Laterality Comments REPLACEMENT TOTAL KNEE Right Medical History Medical History Date Comments Hypertension Family History Relation Name Status Comments Father (Age 80) Mother (Age 78) Social History Tobacco Use Types Packs/Day Years Used Date Smoking Tobacco: Every Day Cigarettes Smokeless Tobacco: Never Tobacco Cessation:Ready to Q uit: Not Asked; Counseling Given: Not Answered Alcohol Use Standard Drinks/Week Comments Yes 6 (1 standard drink = 0.6 oz pur e alcohol) Sex and Gender Information Value Date Recorded Sex Assigned at Not on file Legal Sex Male 10:28 AM JUSTICE PROFESSOR Gender Identity Not on file Sexual Orientation Not on file Obstetrics History Last Filed Vital Signs Vital Sign Reading Time Taken Comments Blood Pressure 132/84 05/12/2023 2:16 PM JUSTICE PROFESSOR Pulse 90 05/12/2023 2:16 PM JUSTICE PROFESSOR Temperature 36.8 C (98.2 F) 08/04/2021 11:01 AM JUSTICE PROFESSOR Respiratory Rate 20 05/27/2020 11:21 AM JUSTICE PROFESSOR Oxygen Saturation 93% 05/12/2023 2:16 PM JUSTICE PROFESSOR Inhaled Oxygen Concentration - - Weight 89.8 kg (198 lb) 05/12/2023 2:16 PM JUSTICE PROFESSOR Height 188 cm (6' 2) 05/12/2023 2:16 PM JUSTICE PROFESSOR Body Mass Index 25.42 05/12/2023 2:16 PM JUSTICE PROFESSOR Plan of Treatment Health Maintenance Due Date Last Done Comments Colon Cancer Screening-Colonoscopy 1960 Depression Screening 1960 Hepatitis C Screening 1960 Prostate Cancer Screening-PSA 1960 DTaP/Tdap/Td Vaccine (1 - Tdap) 08/13/1971 Hepatitis B Screening 1978 Regular Well Visit/Exam 18-64 1978 Pneumococcal vaccine <65 (1 of 2 - PCV) 08/13/1979 Zoster Vaccine (1 of 2) 2010 Covid-19 Vaccine (3 - 2023- season) 02/13/202403/2022, 05/26/2021 Influenza Vaccine (Season Ended) 2025 Medical Devices Implanted Type Area Manager Product Marketing Device Identifier Shelf Expiration Date Model / Serial / Lot [employer] 33mj-501 Masters-Series 33mm 26.1mm Mechanical Standard Cuff Style - [id number] - [id number] Implanted:Qty: 1 on 05/02/2020 by Gabriele Valencia MD at [facility] Prosthetic Valve N/A: Heart [employer] 05/11/2023 [id number] / [id number] / [employer] [id number] Renard-Edwa rds Physio 34mm Extended Length Handle Ergonomic - [id number] - [id number] Implanted:Qty: 1 on 05/02/2020 by Gabriele Valencia MD at [facility] Prosthetic Valve N/A: Heart [employer] [id number] 03/25/2025 [id number] / [id number] / [place] [address] [facility] [employer] [place] [employer] [facility] MEDIC[facility] Advance Directives For more information, please contact: [phone] * Full Code (Latest Code Status on File) Date Activated Date Inactivated Comments 04/28/2020 1:58 PM 05/13/2020 5:20 PM Care Teams Cube Machine Tender Relationship Specialty Start Date End Date Kevin Mac MD PCP - General Family Medicine 03/17/20 Harshil Garcia MD [address] [facility] [address] [place], [place] [id number] Referring Physician Cardiology 04/01/20 Gabriele Valencia MD [phone] [place] [address] Surgeon Cardiothoracic Surgery 05/13/20
--- OUTSIDE RECORDS SUMMARY | 2024-10-31 19:04 | XMS_ITS | Referral Summary ---
Author Organization [facility] [address] Address [address] [place] [address] Care Team Providers Care Biazzi Nitrator Operator Name Role Phone Kevin Mac MD Primary Care Provider [phone] Harshil Garcia MD Unavailable [phone] Gabriele Valencia MD Unavailable [phone] Encounters Date Type Department Care Team Description 09/05/2024 Telephone [facility] Cardiology [address] [place] [address] Yannick Mcclellan MD from Last 3 Months Allergies Active Allergy Reactions Criticality Noted Date [...] tablet (10 mg total) by mouth Active [id number] folate-algal 27 mg iron-1.13 mg-581.92 mg capsule [...] 05/11/2020 Assessment & Plan (05/12/2020 10:30 AM EXPOSURE MACHINE OPERATOR): Will be on Life-long coumadin Goal INR for [facility] MVR is 2.5-3.5 Pt has received vitamin K diet instructions Pharmacy education pending (medication interactions) Call PCP on Wednesday for possible INR follow-up. Leukocytosis 05/10/2020 Assessment & Plan (05/12/2020 10:29 AM EXPOSURE MACHINE OPERATOR): Remains afebrile over past 24 hrs WBC up slightly (15.9 from 15.7) Incisions without redness or drainage UA negative 05/09 Encourage IS Hyperkalemia 05/10/2020 Assessment & Plan (05/10/2020 8:40 AM EXPOSURE MACHINE OPERATOR): K+ level up to 5.0- holding aldactone today Will cont to follow Prolonged P-R interval 05/07/2020 Assessment & Plan (05/11/2020 10:08 AM EXPOSURE MACHINE OPERATOR): Tele shows NSR EKG SD interval appears to be > 300 milliseconds Continue to follow Heart failure with preserved ejection fraction 1 06/28/2019 Assessment & Plan (05/12/2020 10:28 AM EXPOSURE MACHINE OPERATOR): Holding on beta hector therapy due to long SD See Echo results on [facility] valve problem (above) Continue IV BID lasix, at present with aldactone Low K diet COPD (chronic obstructive pulmonary disease) Assessment & Plan (05/06/2020 9:41 AM EXPOSURE MACHINE OPERATOR): Continue inhalers Using flutter valve and incentive spirometer Hx of mitral valve replacement with mechanical v alve 04/16/2020 Overview (04/16/2020): Added automatically from request for surgery [id number] Assessment & Plan (05/12/2020 10:25 AM EXPOSURE MACHINE OPERATOR): S/p mechanical MVR (St Brandin 33), TV [...] (04/16/2020): Added automatically from request for surgery [id number] Assessment & Plan (05/12/2020 10:27 AM EXPOSURE MACHINE OPERATOR): S/p MAZE 05/02/2020 Remains NSR Pulmonary hypertension Social History Tobacco Use Types Packs/Day Years Used Date Smoking Tobacco: Every Day Cigarettes Smokeless Tobacco: Never Tobacco Cessation:Ready to Q uit: Not Asked; Counseling Given: Not Answered Alcohol Use Standard Drinks/Week Comments Yes 6 (1 standard drink = 0.6 oz pur e alcohol) Sex and Gender Information Value Date Recorded Sex Assigned at Not on file Legal Sex Male 10:28 AM EXPOSURE MACHINE OPERATOR Gender Identity Not on file Sexual Orientation Not on file Last Filed Vital Signs Vital Sign Reading Time Taken Comments Blood Pressure 132/84 05/12/2023 2:16 PM EXPOSURE MACHINE OPERATOR Pulse 90 05/12/2023 2:16 PM EXPOSURE MACHINE OPERATOR Temperature 36.8 C (98.2 F) 08/04/2021 11:01 AM EXPOSURE MACHINE OPERATOR Respiratory Rate 20 05/27/2020 11:21 AM EXPOSURE MACHINE OPERATOR Oxygen Saturation 93% 05/12/2023 2:16 PM EXPOSURE MACHINE OPERATOR Inhaled Oxygen Concentration - - Weight 89.8 kg (198 lb) 05/12/2023 2:16 PM EXPOSURE MACHINE OPERATOR Height 188 cm (6' 2) 05/12/2023 2:16 PM EXPOSURE MACHINE OPERATOR Body Mass Index 25.42 05/12/2023 2:16 PM EXPOSURE MACHINE OPERATOR Plan of Treatment Not on file Medical Devices Implanted Type Area Electronic Prepress Operator Device Identifier Shelf Expiration Date Model / Serial / Lot [employer] 33mj-501 Masters-Series 33mm 26.1mm Mechanical Standard Cuff Style - [id number] - [id number] Implanted:Qty: 1 on 05/02/2020 by Gabriele Valencia MD at [facility] Prosthetic Valve N/A: Heart [employer] 05/11/2023 [id number]-[id number] / [id number] / [employer] [id number] Renard-Kaylan rds Physio 34mm Extended Length Handle Ergonomic - [id number] - [id number] Implanted:Qty: 1 on 05/02/2020 by Gabriele aVlencia MD at [facility] Prosthetic Valve N/A: Heart [employer] [id number] 03/25/2025 [id number] / [id number] / Insurance [facility] [employer] [place] MEDICARE Advance Directives For more information, please contact: [phone] * Full Code (Latest Code Status on File) Date Activated Date Inactivated Comments 04/28/2020 1:58 PM 05/13/2020 5:20 PM Care Teams Biazzi Nitrator Operator Relationship Specialty Start Date End Date Kevin Mac MD PCP - General Family Medicine 03/17/20 Harshil Garcia MD [address] [address] Referring Physician Cardiology 04/01/20 Gabriele Valencia MD [phone] [place] [address] Surgeon Cardiothoracic Surgery 05/13/20
--- NOTE | 2024-10-31 19:49 | ED_ITS ---
HPI - General Adult General Chief complaint: Arrhythmia/Palpitations Stated complaint: dizzy Time Seen by Provider: 10/31/24 18:34 History of Present Illness HPI narrative: 64-year-old male present to the emergency department for evaluation for worsening exertional shortness of breath. Patient states he has had worsening exertional shortness breath over the course of the last 6 months but does potentially worsened over the last few days. Patient initially presented to urgent care for evaluation for some pinkness to his urine but was found to have a heart rate in the 130s with simple exertion. Patient does have history of aortic valve replacement at [facility] approximately 3 years ago patient does take Coumadin. Patient states he has been taking his medications and denies any medication changes and states he has been eating and drinking okay. Patient denies any prior history of a GI bleed or blood in his stool. Patient is a previous smoker and does still vape. Related Data Home Medications ?Medication ?Instructions ?Recorded ?Confirmed ?Last Taken ?Type aspirin 81 mg tablet 81 mg PO DAILY 06/17/21 10/31/24 Unknown History Allergies Allergy/AdvReac Type Severity Reaction Status Date / Time Penicillins Allergy Unknown Rash Verified 10/31/24 16:17 Review of Systems 2 Review of Systems: All systems reviewed & are unremarkable except as noted in HPI and below PMFSH Past Medical History Medical History Tachycardia Leukocytosis Anemia Hyponatremia Otitis media with effusion Orthostatic hypotension Pleural effusion Wheezing on right side of chest on exhalation Ribs, multiple fractures COPD (chronic obstructive pulmonary disease) GERD (gastroesophageal reflux disease) BPH (benign prostatic hyperplasia) Lipoma of back Periumbilical hernia Chronic cough Erectile dysfunction Acute wheezy bronchitis Esophagitis Screen for colon cancer Screening for prostate cancer BMI 25.0-25.9,adult Tobacco abuse disorder Anxiety Hypertension Osteoarthritis Surgical History Surgical History Heart valve replaced Status post left partial knee replacement 1999 History of total right knee replacement 2009 Family History Family History Father , 80 years old Dementia Atrial fibrillation Mother , 72 years old CHF (congestive heart failure) Sibling Obesity Diabetes mellitus Obstructive sleep apnea Social History Social History Social History: He lives in [facility] with his of 32 years. He retired in the early spring. 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 He started smoking at 45 years of age and has smoked between 1-1.5 packs per day. He drinks 2 or 3 beers several times a week. He uses 2 or 3 marijuana joints a week. He has 1 son and 1 daughter. The patient has 2 brothers and 2 sisters. His 1 brother is obese and has diabetes and obstructive sleep apnea. His remaining siblings are relatively healthy. Primary care physician: Dr. Kevin Mac Surrogate decision maker: Tierra Morejon () Smoking packs per day: 1 Smoking cigarettes per day: 20.0 Years smoked: 18 Smoking pack-years: 18.00 Smoking status: Former smoker (vape) Tobacco type: cigarettes Smoking end date: 04/22/20 Additional smoking assessment comments: CURRENTLY TRYING TO QUIT Alcohol intake: current Drinks per week: 10 Substance use: former Substance use type: marijuana Other substance usage details: COUPLE TIMES A WEEK AT MOST Do You Feel Safe in your Home?: Yes Lack of Transportation: No Lack of Food: Never True Current Housing: I Have Housing Concerned About Future Housing: No Difficulty Paying Gas/Electric Bills: No Difficulty Paying for Meds: No Currently Unemployed: No Education: Trade/Vocational Certificate Difficulty w/ Childcare or Family Care: No Living arrangements: with family Occupation/Education: retired 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 HEAD: normocephalic, atraumatic. EYES: PERRLA/EOMI, conjunctivae clear. NOSE: Normal no drainage EARS:TMS clear with good light reflex. THROAT: Pharynx clear, no exudate. NECK: Supple. No adenopathy, no masses. RESPIRATORY: Airway patent, respirations nonlabored. Clear to auscultation bilaterally, no rales, rhonchi, wheezing. CARDIOVASCULAR: Regular rate and rhythm without murmurs rubs or gallops. ABDOMINAL: Soft, nontender, nondistended, normal bowel sounds MUSCULOSKELETAL: Moves all extremities. Strength/ROM intact, No edema, No calf tenderness. NEURO: Alert. Cranial nerves II through XII intact. Good gait. Good coordination SKIN: Warm, dry. Normal Color Rectal exam: Hemoccult positive Course Vital Signs Vital signs: Vital Signs Temperature 98.7 F 10/31/24 17:09 Pulse Rate 99 10/31/24 17:09 Respiratory Rate 17 10/31/24 17:09 Blood Pressure 114/91 H 10/31/24 17:09 Pulse Oximetry 96 10/31/24 17:09 Oxygen Delivery Room Air 10/31/24 17:09 Temperature 98.7 F 10/31/24 17:09 Pulse Rate 100 10/31/24 19:15 Respiratory Rate 15 10/31/24 19:15 Blood Pressure 113/91 H 10/31/24 19:15 Pulse Oximetry 97 10/31/24 19:15 Oxygen Delivery Room Air 10/31/24 17:09 Medical Decision Making MDM Narrative Medical decision making narrative: 64-year-old male presents emergency department for evaluation for worsening exertional shortness of breath. Time of initial evaluation patient's heart rate is not elevated he is saturating approximately 90% on room air with no complaints of any shortness of breath. Patient does have history of COPD but denies any chest tightness. Patient is currently afebrile but does have a leukocytosis of 11.0 patient does have a hemoglobin of 9.2 which is proximally 2 g lower than his typical baseline. Patient's INR was 11.1. Patient has no acute abnormalities on his CMP. Patient's UA does show high red blood cells with no underlying evidence of infection. Patient was Hemoccult positive on the digital rectal exam. Pap screen was ordered and patient was treated with p.o. vitamin K. patient was also started on IV Protonix and IV famotidine and GI consult order was placed. Chest x-ray did show a left-sided pleural effusion which is new compared to previous imaging. CT chest with contrast was ordered to evaluate for any masses and no explanation for the pleural effusion was noted. Case was discussed with the hospitalist patient was accepted for admission to the IMU. Patient and family are comfortable the plan for admission. Differential Diagnosis Differential Diagnosis: Pleural effusion, pneumonia, heart failure, lung mass, hematuria, hematochezia, supratherapeutic INR, GI bleed Vital Signs Vital Signs: Vital Signs Temperature 98.7 F 10/31/24 17:09 Pulse Rate 99 10/31/24 17:09 Respiratory Rate 17 10/31/24 17:09 Blood Pressure 114/91 H 10/31/24 17:09 Pulse Oximetry 96 10/31/24 17:09 Oxygen Delivery Room Air 10/31/24 17:09 Temperature 98.7 F 10/31/24 17:09 Pulse Rate 100 10/31/24 19:15 Respiratory Rate 15 10/31/24 19:15 Blood Pressure 113/91 H 10/31/24 19:15 Pulse Oximetry 97 10/31/24 19:15 Oxygen Delivery Room Air 10/31/24 17:09 Lab Data Lab results reviewed: Yes I reviewed the patient's lab results. 10/31/24 17:24 10/31/24 17:24 Labs: Lab Results 10/31/24 10/31/24 Range/Units 17:24 20:18 WBC 11.0 H (4.5-10.0) K/mm3 RBC 3.08 L (4.6-6.20) M/mm3 Hgb 9.2 L D (14.0-18.0) g/dL Hct 29.2 L (42.0-52.0) % MCV 94.8 (80-100) fl MCH 29.9 (26-34) pg MCHC 31.5 L (32-36) g/dl RDW 15.5 H (11.5-14.5) % Plt Count 399 H (150-375) k/mm3 MPV 9.4 (7.4-10.4) fl Immature Gran % (Auto) 0.5 (0-0.5) % Neut % (Auto) 80.6 H (45.5-73.1) % Lymph % (Auto) 7.2 L (18.3-44.2) % [place] % (Auto) 10.8 H (2.6-8.5) % Eos % (Auto) 0.4 (0-4.4) % Baso % (Auto) 0.5 (0.2-1.2) % Lymph # (Auto) 0.80 L (0.9-3.2) K/mm3 [place] # (Auto) 1.2 H (0.1-0.6) K/mm3 Eos # (Auto) 0.0 (0-0.3) K/mm3 Baso # (Auto) 0.1 (0.0-0.1) K/mm3 Abs Immat Gran (auto) 0.06 H (0.00-0.031) K/mm3 Absolute Neuts (auto) 8.9 H (1.3-6.7) K/mm3 Absolute Nucleated RBC 0.000 (0.0-0.012) K/mm3 Nucleated RBC % 0.0 (0.0-0.2) % PT 87.2 H (11.1-14.7) Seconds INR 11.1 H* APTT 128.4 H (22.3-36.8) Seconds Sodium 132 L (137-145) mmol/L Potassium 4.7 (3.4-5.0) mmol/L Chloride 99 (98-107) mmol/L Carbon Dioxide 21 L (22-30) mmol/L Anion Gap 12 (4-12) mmol/L BUN 19 (9-20) mg/dL Creatinine 0.89 (0.7-1.3) mg/dL Estim Creat Clear Calc 86 ml/min Estimated GFR > 60 (59 - ) Glucose 107 (65-110) mg/dL Calcium 8.5 (8.4-10.2) mg/dL Total Bilirubin 0.7 (0.2-1.3) mg/dL AST 54 (17-59) U/L ALT 42 (6-50) U/L Alkaline Phosphatase 89 (38-126) U/L Total Protein 7.0 (6.3-8.2) g/dL Albumin 4.0 (3.5-5.1) g/dL Urine Color Dark red H (Yellow) Urine Appearance Turbid H (Clear) Urine pH 6.0 (5.0-9.0) Ur Specific [place] 1.010 (1.001-1.035) Urine Protein 2+ H (Negative) mg/dL Urine Glucose (UA) 3+ H (Negative) mg/dL Urine Ketones 2+ H (Negative) mg/dL Ur Blood (Man) 3+ H (Negative) Urine Nitrate Negative (Negative) Urine Bilirubin 1+ H (Negative) Urine Urobilinogen 0.2 (<2.0) mg/dL Leukocyte Esterase Rfl Negative (Negative) JANY/UL Urine RBC >100 H (0-2) /hpf Urine WBC 0-3 (0-3) /hpf Ur Squamous Epith Cells None seen (Few) /hpf Urine Bacteria Trace (None) /hpf Imaging Data Radiologist's impression: Impressions Chest X-Ray 10/31/24 18:19 IMPRESSION: Large left-sided pleural effusion without focal infiltrate. Chest CT 10/31/24 19:17 IMPRESSION: Large left-sided pleural effusion with adjacent compressive atelectasis, unchanged from plain film evaluation performed approximately 90 minutes earlier ECG Data EKG #1: EKG Interpretation: sinus rhythm, no ectopy, non-specific ST changes, normal QRS and NL axis Critical Care Time Critical Care Time Critical Care Time: Yes Total Critical Care Time: 35 Discharge Plan Discharge Clinical Impression: Anticoagulated on Coumadin, Pleural effusion, Acute upper GI bleed, Hematuria, Dyspnea Patient Disposition: Still a Patient Condition: Serious
[2024-10-31 19:53] LABS: Partial Thromboplastin Time 128.4 Seconds (22.3-36.8)
[2024-10-31 20:11] LABS: Prothrombin Time 87.2 Seconds (11.1-14.7)
[2024-10-31 20:17] LABS: INR 11.1
[2024-10-31 20:42] LABS: Add Urine Microscopic? YES; RBC Urine >100 /hpf (0-2); Squamous Epithelial Cell Urine None Seen /hpf (Few); WBC Urine 0-3 /hpf (0-3)
[2024-10-31 20:43] LABS: Appearance Urine Turbid (Clear); Bacteria Urine Trace /hpf; Color Urine Dark Red (Yellow)
[2024-10-31 20:44] LABS: Protein Urine 2+ mg/dL (Negative)
[2024-10-31 20:45] LABS: Ketones Urine 2+ mg/dL (Negative)
[2024-10-31 20:46] LABS: Bilirubin Urine 1+ (Negative); Blood Urine 3+ (Negative); Glucose Urine UA 3+ mg/dL (Negative); Nitrate Urine Negative (Negative)
[2024-10-31 20:47] LABS: Leukocyte Esterase Ur Negative LEU/UL (Negative); Urobilinogen Urine 0.2 mg/dL (<2.0)
[2024-10-31] MEDS: PANTOPRAZOLE SODIUM IV 40 MG VIAL 80 MG IV PUSH (21:11)
[2024-10-31] MEDS: FAMOTIDINE 20 MG/2 ML VIAL IV PUSH (21:11)
--- NOTE | 2024-10-31 21:50 | ADMGEN ---
This patient, Aly Starr, was admitted to IMU Room 214-01. Patient/family oriented to hospital policies and general routines including ID bracelet, bed and alarms, visiting hours, pain management, procedures, bathroom and other care routines, personal items, smoking policy, room service/diet, and visiting hours. Information on how to activate the Rapid Response Team has been discussed. Patient/Family are encouraged to report perceived risks to care and to ask questions if they do not understand what they are told or what they should do.
[2024-10-31] MEDS: SACUBITRIL/VALSARTAN 49-51 MG TABLET 1 TABLET PO (22:57)
[2024-10-31] MEDS: oxyCODONE/ACETAMINOPHEN (*CRX) 10-325 MG TABLET 1 TAB PO (22:57)
[2024-10-31] MEDS: IPRATROPIUM 0.5 MG/ALBUTEROL SULFATE 2.5 MG AMPUL.NEB 3 ML INHALATION (22:59)
[2024-10-31 23:01] LABS: Hematocrit 27.5 % (42.0-52.0); Hemoglobin 8.5 g/dL (14.0-18.0)
[2024-11-01] VITALS (30 sets, daily range): BP systolic 96–133; BP diastolic 64–88; PULSE 79–97; RESP 18–22; TEMP 36.4–36.9; O2SAT 92–99
--- NOTE | 2024-11-01 | ECHO_ITS ---
Patient Info Name: Aly Starr Age: 64 years : 1960 Gender: Male Ht: 74 in Wt: 196 lbs BSA: 2.16 m2 HR: 81 bpm BP: 115 / 83 mmHg Heart Rhythm: Sinus Rhythm Technical Quality: Fair Exam Date: 11/01/2024 9:10 AM Patient Status: I Admit Date: 10/31/2024 Exam Type: CA echo doppler color flow Complete two-dimensional, color flow and Doppler transthoracic echocardiogram is performed. Staff Referring Physician: James Ellis Refrigerator Assembler: Trice Santana Attending Provider: Avila Boyd Summary 1. Complete two-dimensional, color flow and Doppler transthoracic echocardiogram is performed. 2. Left ventricular chamber dimension is normal. 3. Left ventricular systolic function is normal, estimated at 60-65. 4. There is no increased left ventricular wall thickness. 5. The left ventricular diastolic function is indeterminate. 6. Left atrial chamber dimension is mildly enlarged. 7. There is mild aortic valve regurgitation. 8. There is moderate aortic valve sclerosis. 9. There is mild tricuspid valve regurgitation. 10. Mild pulmonary hypertension, estimated pulmonary arterial systolic pressure is 36 mmHg. 11. There is small pericardial effusion. 12. Pleural effusion noted. Left Ventricle Left ventricular chamber dimension is normal. Left ventricular systolic function is normal, estimated at 60-65. There is no increased left ventricular wall thickness. The left ventricular diastolic function is indeterminate. Right Ventricle Right ventricular chamber dimension is normal. Right ventricular systolic function is normal. Left Atria Left atrial chamber dimension is mildly enlarged. Right Atria Right atrial chamber dimension is normal. Atrial Septum Intact interatrial septum visualized by color flow imaging. Aortic Valve The aortic valve is trileaflet. There is moderate aortic valve sclerosis. There is no aortic valve stenosis. There is mild aortic valve regurgitation. Pulmonic Valve The pulmonic valve is normal. There is no pulmonic valve stenosis. There is trace pulmonic regurgitation. Mitral Valve There is no stenosis of the mechanical mitral valve. There is trace regurgitation of the mechanical mitral valve. Tricuspid Valve The tricuspid valve leaflets are normal. There is no significant tricuspid valve stenosis. There is mild tricuspid valve regurgitation. Mild pulmonary hypertension, estimated pulmonary arterial systolic pressure is 36 mmHg. Other Findings Pleural effusion noted. Pericardium/Pleural The pericardium appears normal. There is small pericardial effusion. Inferior Vena Cava Normal inferior vena cava with >50% collapse upon inspiration consistent with normal right atrial pressure, 5 mmHg. Aorta The aortic root size at the sinus of Valsalva is mildly dilated. Left Ventricular Outflow Tract Name Value Normal LVOT 2D LVOT Diameter 2.0 cm Pulmonic Valve Name Value Normal RVOT Doppler RVOT Peak Velocity 65 cm/s RVOT Peak Gradient 2 mmHg PV Doppler PV Peak Velocity 94 cm/s PV Peak Gradient 4 mmHg Mitral Valve Name Value Normal MV Doppler MV Peak Gradient 12 mmHg MV Mean Gradient 6 mmHg MV Diastolic Function MV E Peak Velocity 154 cm/s MV A Peak Velocity 6 cm/s MV E/A 26.2 MV Decel Time (PW) 326 ms Tricuspid Valve Name Value Normal TV Regurgitation Doppler TR Peak Velocity 276 cm/s TR Peak Gradient 31 mmHg Estimated PAP/RSVP RA Pressure 5 mmHg <=5 PA Systolic Pressure 36 mmHg <36 RV Systolic Pressure 36 mmHg <36 TV Annular TDI TV Lateral Audrey s' Velocity 6.2 cm/s >=9.5 Aortic Valve Name Value Normal AV Regurgitation 2D LVOT Area 3.1 cm2 Ventricles Name Value Normal LV Dimensions 2D/MM IVS Diastolic Thickness (2D) 0.9 cm 0.6-1.0 LVID Diastole (2D) 4.3 cm 4.2-5.8 LVIW Diastolic Thickness (2D) 0.9 cm 0.6-1.0 LVID Systole (2D) 2.8 cm 2.5-4.0 LVOT Diameter 2.0 cm LV Mass (2D Cubed) 122.18 g 88.00-224.00 LV Mass Index (2D Cubed) 57 g/m2 49-115 Relative Wall Thickness (2D) 0.40 <=0.42 LV Fractional Shortening/Ejection Fraction 2D/MM LV Fractional Shortening (2D) 35 % 25-43 LV EF (2D Teichholz) 65 % Report Signatures
[2024-11-01] MEDS: SODIUM CHLORIDE 0.9% IV 250 ML 30 ML IV CONT (01:40)
[2024-11-01] MEDS: CYCLOBENZAPRINE HCL 5 MG TABLET PO ×2 (01:50→18:03)
[2024-11-01] MEDS: TUBING, BLOOD PLUM PUMP TUBING 1 EACH XX ×2 (01:50→04:15)
--- NOTE | 2024-11-01 02:28 | PM.IMHP ---
H&P: HPI History of Present Illness Date/Time: 11/01/24 02:28 Chief Complaint: Hematuria, dyspnea on exertion Narrative: This is a 64 year old male patient who complained of hematuria for 2 days and dyspnea on exertion for about a week. Today patient went to see primary care provider in the office regarding his symptoms. PCP thought patient may have urine infection causing hematuria. Patient became significantly tachycardic with minor activity in the office. EKG obtained and EMS called to transport patient to the ER. Patient stated he didn't want to go by EMS but was dizzy so he agreed. Patient has past history of mechanical aortic valve replacement and is on warfarin with goal INR 2.5-3.5. In ER labs noted 2 point drop in hemoglobin from last on record. Additionally, INR noted to be 11.1. Urine grossly bloody and Digital Rectal exam for hemoccult was positive but noted brown stool on finger of ER provider. No melena, BRBPR or hematemesis reported. Patient denies any nose, mouth/gum bleeding or abnormal bruising. He notes dyspnea has slowly worsened over a few weeks since injuring left ribs. Vitamin K 10 mg oral given in ER. On admit we decided to give 2 units of FFP. Repeat Hemoglobin had dropped from 9.2 to 8.5 and will be rechecked again by morning. Will transfuse RBCs if drops below 8. GI consulted for evaluation. Review of Systems Review of Systems: Denies fever, chills or chest pain. All systems reviewed & are unremarkable except as noted in HPI and below PMFSH Past Medical History Medical History Tachycardia Leukocytosis Anemia Hyponatremia Otitis media with effusion Orthostatic hypotension Pleural effusion Wheezing on right side of chest on exhalation Ribs, multiple fractures COPD (chronic obstructive pulmonary disease) GERD (gastroesophageal reflux disease) BPH (benign prostatic hyperplasia) Lipoma of back Periumbilical hernia Chronic cough Erectile dysfunction Acute wheezy bronchitis Esophagitis Screen for colon cancer Screening for prostate cancer BMI 25.0-25.9,adult Tobacco abuse disorder Anxiety Hypertension Osteoarthritis Surgical History Surgical History Heart valve replaced Status post left partial knee replacement 1999 History of total right knee replacement 2009 Family History Family History Father , 80 years old Dementia Atrial fibrillation Mother , 72 years old CHF (congestive heart failure) Sibling Obesity Diabetes mellitus Obstructive sleep apnea Social History Social History Social History: He lives in [facility] with his of 32 years. He retired in the early spring. 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 He started smoking at 45 years of age and has smoked between 1-1.5 packs per day. He drinks 2 or 3 beers several times a week. He uses 2 or 3 marijuana joints a week. He has 1 son and 1 daughter. The patient has 2 brothers and 2 sisters. His 1 brother is obese and has diabetes and obstructive sleep apnea. His remaining siblings are relatively healthy. Primary care physician: Dr. Kevin Mac Surrogate decision maker: Tierra Morejon () Smoking packs per day: 1 Smoking cigarettes per day: 20.0 Years smoked: 20 Smoking pack-years: 20.00 Smoking status: Former smoker Tobacco type: e-cigarettes/vaping Smoking end date: 04/22/20 Additional smoking assessment comments: CURRENTLY TRYING TO QUIT Alcohol intake: current Drinks per week: 30 Substance use: current Substance use type: marijuana Other substance usage details: COUPLE TIMES A WEEK AT MOST Last use: 10/26/24 Do You Feel Safe in your Home?: Yes Lack of Transportation: No Lack of Food: Never True Current Housing: I Have Housing Concerned About Future Housing: No Difficulty Paying Gas/Electric Bills: No Difficulty Paying for Meds: No Currently Unemployed: No Education: High School Diploma/GED Difficulty w/ Childcare or Family Care: No Living arrangements: with family Occupation/Education: retired 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 #30 tabs 07/26/24 10/31/24 Rx albuterol 90 mcg-budesonide 80 2 inh inhalation ONCE #5.9 grams 08/29/24 10/31/24 Rx mcg/actuation HFA aerosol inhaler (Airsupra) cyclobenzaprine 5 mg tablet 5 mg PO TID PRN muscle spasm #30 08/29/24 10/31/24 Rx tabs sodium chloride 1,000 mg soluble 1,000 mg PO DAILY #30 tabs 08/30/24 10/31/24 Rx tablet oxycodone-acetaminophen 10 mg-325 1 tablet PO TID PRN pain #90 tabs 08/31/24 10/31/24 Rx mg tablet warfarin 10 mg tablet 10 mg PO .COMPLEX #90 tabs 09/13/24 10/31/24 Rx bupropion HCl 150 mg 24 hr tablet, 150 mg PO QAM #90 tabs 09/15/24 10/31/24 Rx extended release spironolactone 25 mg tablet 25 mg PO DAILY #90 tabs 09/17/24 10/31/24 Rx empagliflozin 10 mg tablet 10 mg PO DAILY #90 tabs 10/13/24 10/31/24 Rx (Jardiance) paroxetine HCl 40 mg tablet 50 mg PO DAILY 10/31/24 10/31/24 History Allergies Allergy/AdvReac Type Severity Reaction Status Date / Time Penicillins Allergy Unknown Rash Verified 10/31/24 16:17 Vital Signs Vital Signs - 24 hr 10/31/24 17:09 10/31/24 17:45 10/31/24 18:15 Temperature 37.1 C Pulse Rate 99 97 94 Respiratory Rate 17 17 13 Blood Pressure 114/91 H Pulse Oximetry 96 100 96 Oxygen Delivery Room Air 10/31/24 18:45 10/31/24 19:00 10/31/24 19:15 Temperature Pulse Rate 99 96 100 Respiratory Rate 16 14 15 Blood Pressure 113/91 H Pulse Oximetry 97 95 97 Oxygen Delivery 10/31/24 20:45 10/31/24 20:46 10/31/24 21:01 Temperature Pulse Rate 96 95 95 Respiratory Rate 16 16 18 Blood Pressure 132/91 H 112/81 Pulse Oximetry 96 Oxygen Delivery 10/31/24 21:45 10/31/24 22:00 10/31/24 22:41 Temperature 36.5 C Pulse Rate 102 H 91 Respiratory Rate 22 H Blood Pressure 134/92 H Pulse Oximetry 98 Oxygen Delivery Room Air 10/31/24 23:02 10/31/24 23:13 11/01/24 00:00 Temperature 36.8 C Pulse Rate 86 87 97 Respiratory Rate 20 20 21 H Blood Pressure 120/79 Pulse Oximetry 96 Oxygen Delivery 11/01/24 00:00 11/01/24 00:00 11/01/24 01:43 Temperature 36.6 C Pulse Rate 89 90 Respiratory Rate 20 Blood Pressure 112/67 Pulse Oximetry 92 Oxygen Delivery Room Air 11/01/24 02:00 11/01/24 02:03 Temperature 36.8 C Pulse Rate 81 86 Respiratory Rate 20 Blood Pressure 109/69 Pulse Oximetry 94 Oxygen Delivery Exam Narrative: GENERAL: Well-appearing, well-nourished HEAD: Normocephalic, atraumatic. ENT:? Mucous membranes moist. No bleeding from mouth or nose CHEST: Clear to auscultation, diminished left lower.? Mild dyspnea with activity. HEART: Regular rate and rhythm at rest. ? Normal peripheral pulses. ABDOMEN: Soft, nontender, nondistended. EXTREMITIES: Normal range of motion. No peripheral edema. SKIN: Warm dry normal color NEURO: Alert and oriented x3. PSYCH: Normal mood and affect H&P: Results Labs Labs: Short CBC 10/31/24 10/31/24 Range/Units 17:24 22:57 WBC 11.0 H (4.5-10.0) K/mm3 Hgb 9.2 L D 8.5 L (14.0-18.0) g/dL Hct 29.2 L 27.5 L (42.0-52.0) % Plt Count 399 H (150-375) k/mm3 BMP 10/31/24 17:24 Sodium 132 L Potassium 4.7 Chloride 99 Carbon Dioxide 21 L BUN 19 Creatinine 0.89 Glucose 107 Calcium 8.5 Liver Function 10/31/24 Range/Units 17:24 Total Bilirubin 0.7 (0.2-1.3) mg/dL AST 54 (17-59) U/L ALT 42 (6-50) U/L Alkaline Phosphatase 89 (38-126) U/L Albumin 4.0 (3.5-5.1) g/dL Urine 10/31/24 Range/Units 20:18 Urine Color Dark red H (Yellow) Urine Appearance Turbid H (Clear) Urine pH 6.0 (5.0-9.0) Ur Specific [place] 1.010 (1.001-1.035) Urine Protein 2+ H (Negative) mg/dL Urine Glucose (UA) 3+ H (Negative) mg/dL Pulse Oximetry SpO2 results: 92-98% on room air Attestation: I personally reviewed and interpreted this pulse oximetry as follows: Interpretation: No need for supplemental oxygenation at this time ECG Attestation: I personally reviewed and interpreted this ECG as follows: ECG completion date: 10/31/24 ECG completion time: 17:14 Prior ECG tracings: not available for review Interpretation: Sinus rhythm with first degree block, Rate 96, AR 215, QRSd 128 Right bundle branch block, QTC 456, QRS axis -27, T wave inversion in V3/V4, no STEMI Imaging Chest x-ray: Radiologist's impression: CHEST RADIOGRAPH, PA AND LATERAL CLINICAL HISTORY: sob. OPEN HEART SX X 5 YRS . COMPARISON: 12/08/2022 TECHNIQUE: PA and lateral views of the chest. FINDINGS Sternal wires and mediastinal clips are identified, the wires are midline and intact. Annular ring projects over the mitral position. The remainder of the cardiomediastinal silhouette is otherwise unremarkable. A large left-sided pleural effusion is identified, an interval change from prior. Calcified granuloma within the left upper lobe. The remainder of the lungs are clear. IMPRESSION: Large left-sided pleural effusion without focal infiltrate. Reviewed, dictated and finalized at location A. CT scan - chest: Radiologist's impression: CLINICAL INDICATION: Left-sided pleural effusion COMPARISON: Reference is made to a plain film evaluation of the chest, performed the same day.. TECHNIQUE: Multiple contiguous axial images of the chest was performed following the administration of intravenous contrast. This CT examination was performed utilizing dose reduction techniques. DLP: 300 mGy-cm FINDINGS/OBSERVATIONS: LUNG: Large left-sided pleural effusion is identified with adjacent compressive atelectasis. Redemonstration of a calcified granuloma within the superior segment of the left lower lobe. The remainder of the lungs are clear. HEART: The heart is of normal size, without pericardial effusion. MEDIASTINUM: No pathologically enlarged or morphologically suspicious lymph nodes are identified within the mediastinum, bilateral axilla, within the soft tissues of the anterior chest wall. SOFT TISSUES OF THE CHEST: Unremarkable. BONES OF THE CHEST: No acute fracture. No lytic or blastic lesions are identified. Heterogeneous attenuation of the bones of the cervical spine, for which clinical correlation is needed. IMPRESSION: Large left-sided pleural effusion with adjacent compressive atelectasis, unchanged from plain film evaluation performed approximately 90 minutes earlier Reviewed, dictated and finalized at location A. 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-3.5 -Did not use K-Centra as current bleeding is not life threatening and we don't want to overcorrect INR if at all possible -Occult positive stool and gross hematuria present -Vitamin K 10 mg oral given in ER -On admit decided to give 2 units FFP and recheck INR after transfusion -Check H&H or CBC every 4 hours and transfuse PRBCs if drops below 8 and bleeding still present -GI consult as below (2) Hematuria: Code(s): R31.9 - Hematuria, unspecified Status: Acute Assessment and Plan: -Gross hematuria noted on my exam of output -Started 2 days ago -Patient continued warfarin dosing despite hematuria -warfarin now held as above -Goal INR 2.5-3.5 due to mechanical heart valve -Consider abd/pelvis CT scan and/or consult to Urology if this continues after INR improvement (3) Atrial fibrillation with rapid ventricular response: Code(s): I48.91 - Unspecified atrial fibrillation Status: Acute Assessment and Plan: -History a-fib and tachy dysrhythmia noted at PCP office -Patient admitted to [facility], may need tele if downgraded after more medically stable (4) Acute upper GI bleed: Code(s): K92.2 - Gastrointestinal hemorrhage, unspecified Status: Acute Assessment and Plan: -Hemoccult positive -History of esophagitis -Pantoprazole 80 mg IV in ER and ordered 40 mg Q12HR to start in AM -GI consulted -Patient was NPO after midnight in case GI wants to go for EGD in the morning -Will want INR improved first (5) Pleural effusion: Code(s): J90 - Pleural effusion, not elsewhere classified Status: Acute Assessment and Plan: -Large left pleural effusion present on imaging -Dyspnea on exertion worsening over past couple weeks likely combination pleural effusion and anemia -Recent broken ribs, possible for this to be partial hemothorax -Not currently requiring oxygen -Order Echocardiogram to assess heart failure status (6) Hypertension: Qualifiers: Hypertension type: essential hypertension Qualified Code(s): I10 - Essential (primary) hypertension Code(s): I10 - Essential (primary) hypertension Status: Acute Assessment and Plan: -BP on softer side -Resume home medications, hold if hypotension develops (7) Mechanical heart valve present: Code(s): Z95.2 - Presence of prosthetic heart valve Status: Acute Assessment and Plan: -See above (8) Tobacco use: Code(s): Z72.0 - Tobacco use Status: Acute Assessment and Plan: -Former smoker, current vape user -Consider nicotine patch if symptoms of withdrawal Quality If No VTE Prophylaxis Answer both mechanical and pharmacologic: Reason no mechanical VTE proph: medical contraindication (supratherapeutic INR) Reason no pharmacologic proph: medical contraindication supratherapeutic INR >3 Total time spent 120 minute including discussing blood/blood product transfusion plans Hospitalist MIPS Advance Care Plan I have confirmed that the patient's Advanced Care Plan is present, code status is documented, or surrogate decision maker is listed in patient medical record.: Yes Medication Reconciliation I have utilized all available resources to obtain, update and review the patients current medications (includes all prescriptions, OTC, herbals, cannabis, and nutritional supplements).: Yes
[2024-11-01 02:55] LABS: Hematocrit 24.3 % (42.0-52.0); Hemoglobin 7.8 g/dL (14.0-18.0)
[2024-11-01] MEDS: FUROSEMIDE INJ 40 MG/4 ML VIAL IV PUSH (02:57)
[2024-11-01 06:14] LABS: Basophils Absolute Auto 0.1 K/mm3 (0.0-0.1); Basophils Percent Auto 0.7 % (0.2-1.2); Eosinophils Absolute Auto 0.2 K/mm3 (0-0.3); Eosinophils Percent Auto 1.7 % (0-4.4); Hemoglobin 8.7 g/dL (14.0-18.0); Immature Granulocyte Absolute 0.08 K/mm3 (0.00-0.031); Immature Granulocyte Percent A 0.9 % (0-0.5); Lymphocytes Absolute Auto 1.31 K/mm3 (0.9-3.2); Mean Corpuscular HGB Conc 32.2 g/dl (32-36); Mean Corpuscular Volume 93.1 fl (80-100); Mean Platelet Volume 9.1 fl (7.4-10.4); Monocytes Absolute Auto 1.1 K/mm3 (0.1-0.6); Monocytes Percent Auto 12.2 % (2.6-8.5); Neutrophils Absolute Auto 6.1 K/mm3 (1.3-6.7); Neutrophils Percent Auto 69.5 % (45.5-73.1); Platelet Count Result 333 k/mm3 (150-375); Red Cell Distribution Width 15.8 % (11.5-14.5); White Blood Count 8.8 K/mm3 (4.5-10.0)
[2024-11-01 06:25] LABS: Alanine Aminotransferase 39 U/L (6-50); Albumin Level 4.1 g/dL (3.5-5.1); Alkaline Phosphatase 78 U/L (38-126); Anion Gap 8 mmol/L (4-12); Aspartate Amino Transferase 62 U/L (17-59); Bilirubin,Total 0.9 mg/dL (0.2-1.3); Blood Urea Nitrogen 20 mg/dL (9-20); Calcium 8.6 mg/dL (8.4-10.2); Carbon Dioxide 30 mmol/L (22-30); Chloride 96 mmol/L (98-107); Estimated CRCL calculation 73 ml/min; Estimated Glomerular Filt Rate > 60; Glucose 102 mg/dL (65-110); Potassium 4.2 mmol/L (3.4-5.0); Sodium 134 mmol/L (137-145)
[2024-11-01 06:27] LABS: INR 2.2; Prothrombin Time 24.7 Seconds (11.1-14.7)
[2024-11-01 06:51] LABS: Iron 70 ug/dL (49-181)
[2024-11-01 07:01] LABS: Percent Iron Saturation 20 % (20-50)
[2024-11-01 07:55] LABS: Hematocrit 28.4 % (42.0-52.0); Hemoglobin 8.8 g/dL (14.0-18.0)
[2024-11-01] MEDS: SACUBITRIL/VALSARTAN 49-51 MG TABLET 1 TABLET PO ×2 (09:50→20:13)
[2024-11-01] MEDS: buPROPion HCL XL (24 HR) 150 MG TABCR PO (09:50)
[2024-11-01] MEDS: SPIRONOLACTONE 25 MG TABLET PO (09:50)
[2024-11-01] MEDS: SODIUM CHLORIDE 1 GM TABLET PO (09:50)
[2024-11-01] MEDS: EMPAGLIFLOZIN 10 MG TABLET PO (09:50)
[2024-11-01] MEDS: PARoxetine 20 MG TABLET 40 MG PO (09:50)
[2024-11-01] MEDS: PARoxetine 10 MG TABLET PO (09:51)
[2024-11-01] MEDS: PANTOPRAZOLE SODIUM IV 40 MG VIAL IV PUSH (09:51)
--- NOTE | 2024-11-01 16:09 | WPDGICN ---
Assessment and Plan Assessment and plan (1) Anemia: Code(s): D64.9 - Anemia, unspecified Status: Acute Assessment and Plan: Despite the absence of overt active or chronic GI bleeding, the patient's non-iron deficient anemia and heme-positive stools warrant further investigation. The ulcerated cecal lesion previously identified is concerning for either latent Crohn's disease or a nonspecific inflammatory lesion, potentially secondary to NSAID use. The patient's presentation with Coumadin toxicity is notable, particularly given his admitted significant daily alcohol consumption. He has been counseled on complete alcohol cessation. Hematology will be consulted to determine the cause of the anemia. A colonoscopy is planned to re-evaluate the inflammatory lesion initially found three years ago. GI Consult Note Consult date/time: 11/01/24 16:09 HPI: Admitted earlier today, Aly Starr is a 64-year-old man presenting with hematuria and two days of dyspnea on exertion. His medical history includes an aortic valve replacement three years ago, and he is currently therapeutic on Coumadin. Upon emergency department evaluation, he had heme-positive stools but no evidence of melena or hematochezia. Initial labs were notable for a hemoglobin of 7.8 g/dL, hematocrit of 24.3%, a significantly elevated INR of 11.1, and a creatinine of 1.51 . Despite these findings, he reports no current GI symptoms. Further review of his history reveals an ulcerated cecal mass discovered on July 2021. Biopsies at that time indicated nonspecific inflammatory changes without malignancy, but no further follow-up was performed. Additionally, an EGD at the same time demonstrated erosive esophagitis and a hiatal hernia. Review of Systems Review of Systems: All systems reviewed & are unremarkable except as noted in HPI and below PMFSH Past Medical History Medical History Tachycardia Leukocytosis Anemia Hyponatremia Otitis media with effusion Orthostatic hypotension Pleural effusion Wheezing on right side of chest on exhalation Ribs, multiple fractures COPD (chronic obstructive pulmonary disease) GERD (gastroesophageal reflux disease) BPH (benign prostatic hyperplasia) Lipoma of back Periumbilical hernia Chronic cough Erectile dysfunction Acute wheezy bronchitis Esophagitis Screen for colon cancer Screening for prostate cancer BMI 25.0-25.9,adult Tobacco abuse disorder Anxiety Hypertension Osteoarthritis Surgical History Surgical History Heart valve replaced Status post left partial knee replacement 1999 History of total right knee replacement 2009 Family History Family History Father , 80 years old Dementia Atrial fibrillation Mother , 72 years old CHF (congestive heart failure) Sibling Obesity Diabetes mellitus Obstructive sleep apnea Social History Social History Social History: He lives in [facility] with his of 32 years. He retired in the early spring. 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 He started smoking at 45 years of age and has smoked between 1-1.5 packs per day. He drinks 2 or 3 beers several times a week. He uses 2 or 3 marijuana joints a week. He has 1 son and 1 daughter. The patient has 2 brothers and 2 sisters. His 1 brother is obese and has diabetes and obstructive sleep apnea. His remaining siblings are relatively healthy. Primary care physician: Dr. Kevin Mac Surrogate decision maker: Tierra Morejon () Smoking packs per day: 1 Smoking cigarettes per day: 20.0 Years smoked: 20 Smoking pack-years: 20.00 Smoking status: Former smoker Tobacco type: e-cigarettes/vaping Smoking end date: 04/22/20 Additional smoking assessment comments: CURRENTLY TRYING TO QUIT Alcohol intake: current Drinks per week: 30 Substance use: current Substance use type: marijuana Other substance usage details: COUPLE TIMES A WEEK AT MOST Last use: 10/26/24 Do You Feel Safe in your Home?: Yes Lack of Transportation: No Lack of Food: Never True Current Housing: I Have Housing Concerned About Future Housing: No Difficulty Paying Gas/Electric Bills: No Difficulty Paying for Meds: No Currently Unemployed: No Education: High School Diploma/GED Difficulty w/ Childcare or Family Care: No Living arrangements: with family Occupation/Education: retired 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 #30 tabs 07/26/24 10/31/24 Rx albuterol 90 mcg-budesonide 80 2 inh inhalation ONCE #5.9 grams 08/29/24 10/31/24 Rx mcg/actuation HFA aerosol inhaler (Airsupra) cyclobenzaprine 5 mg tablet 5 mg PO TID PRN muscle spasm #30 08/29/24 10/31/24 Rx tabs sodium chloride 1,000 mg soluble 1,000 mg PO DAILY #30 tabs 08/30/24 10/31/24 Rx tablet oxycodone-acetaminophen 10 mg-325 1 tablet PO TID PRN pain #90 tabs 08/31/24 10/31/24 Rx mg tablet warfarin 10 mg tablet 10 mg PO .COMPLEX #90 tabs 09/13/24 10/31/24 Rx bupropion HCl 150 mg 24 hr tablet, 150 mg PO QAM #90 tabs 09/15/24 10/31/24 Rx extended release spironolactone 25 mg tablet 25 mg PO DAILY #90 tabs 09/17/24 10/31/24 Rx empagliflozin 10 mg tablet 10 mg PO DAILY #90 tabs 10/13/24 10/31/24 Rx (Jardiance) paroxetine HCl 40 mg tablet 50 mg PO DAILY 10/31/24 10/31/24 History Allergies Allergy/AdvReac Type Severity Reaction Status Date / Time Penicillins Allergy Unknown Rash Verified 10/31/24 16:17 Vital Signs Vital Signs - 24 hr 10/31/24 17:09 10/31/24 17:45 10/31/24 18:15 Temperature 98.7 F Pulse Rate 99 97 94 Respiratory Rate 17 17 13 Blood Pressure 114/91 H Pulse Oximetry 96 100 96 Oxygen Delivery Room Air 10/31/24 18:45 10/31/24 19:00 10/31/24 19:15 Temperature Pulse Rate 99 96 100 Respiratory Rate 16 14 15 Blood Pressure 113/91 H Pulse Oximetry 97 95 97 Oxygen Delivery 10/31/24 20:45 10/31/24 20:46 10/31/24 21:01 Temperature Pulse Rate 96 95 95 Respiratory Rate 16 16 18 Blood Pressure 132/91 H 112/81 Pulse Oximetry 96 Oxygen Delivery 10/31/24 21:45 10/31/24 22:00 10/31/24 22:41 Temperature 97.7 F Pulse Rate 102 H 91 Respiratory Rate 22 H Blood Pressure 134/92 H Pulse Oximetry 98 Oxygen Delivery Room Air 10/31/24 23:02 10/31/24 23:03 10/31/24 23:13 Temperature Pulse Rate 86 87 Respiratory Rate 20 20 Blood Pressure Pulse Oximetry 97 Oxygen Delivery Room Air 11/01/24 00:00 11/01/24 00:00 11/01/24 00:00 Temperature 98.2 F Pulse Rate 97 89 Respiratory Rate 21 H Blood Pressure 120/79 Pulse Oximetry 96 Oxygen Delivery Room Air 11/01/24 01:43 11/01/24 02:00 11/01/24 02:03 Temperature 97.8 F 98.2 F Pulse Rate 90 81 86 Respiratory Rate 20 20 Blood Pressure 112/67 109/69 Pulse Oximetry 92 94 Oxygen Delivery 11/01/24 02:54 11/01/24 03:07 11/01/24 03:23 Temperature 98.1 F 97.9 F Pulse Rate 85 80 Respiratory Rate 18 20 Blood Pressure 112/73 109/64 Pulse Oximetry 95 95 Oxygen Delivery Room Air 11/01/24 03:23 11/01/24 04:00 11/01/24 04:00 Temperature 98.0 F 97.6 F Pulse Rate 81 81 83 Respiratory Rate 19 18 Blood Pressure 107/71 110/74 Pulse Oximetry 95 97 Oxygen Delivery 11/01/24 04:03 11/01/24 04:10 11/01/24 04:25 Temperature 97.6 F 97.9 F 98.0 F Pulse Rate 81 82 81 Respiratory Rate 18 18 18 Blood Pressure 110/74 109/77 107/71 Pulse Oximetry 97 97 98 Oxygen Delivery 11/01/24 05:25 11/01/24 06:00 11/01/24 06:25 Temperature 97.8 F 97.8 F Pulse Rate 79 82 80 Respiratory Rate 19 19 Blood Pressure 96/65 L 115/83 Pulse Oximetry 97 99 Oxygen Delivery 11/01/24 06:39 11/01/24 08:05 11/01/24 11:45 Temperature 98.3 F 97.9 F 97.7 F Pulse Rate 84 85 90 Respiratory Rate 18 18 20 Blood Pressure 118/86 116/75 133/70 Pulse Oximetry 94 97 99 Oxygen Delivery Exam Const: General: cooperative and healthy appearing Resp: Effort & Inspection: normal respiratory effort and able to speak in complete sentences Auscultation: clear to auscultation bilaterally Cardio: Rate: regular rate Rhythm: regular rhythm GI: Inspection: normal to inspection GI Palp: No No hepatosplenomegaly present Auscultation: normal bowel sounds Rectal Exam: deferred Skin: General skin exam: normal color Psych: Appearance: grossly normal Mental Status: mental status grossly normal Results Labs 11/01/24 07:48 11/01/24 06:08 Labs: Short CBC 10/31/24 10/31/24 11/01/24 Range/Units 17:24 22:57 02:50 WBC 11.0 H (4.5-10.0) K/mm3 Hgb 9.2 L D 8.5 L 7.8 L (14.0-18.0) g/dL Hct 29.2 L 27.5 L 24.3 L (42.0-52.0) % Plt Count 399 H (150-375) k/mm3 11/01/24 11/01/24 Range/Units 06:08 07:48 WBC 8.8 (4.5-10.0) K/mm3 Hgb 8.7 L 8.8 L (14.0-18.0) g/dL Hct 27.0 L 28.4 L (42.0-52.0) % Plt Count 333 (150-375) k/mm3 [facility] 10/31/24 11/01/24 17:24 06:08 Sodium 132 L 134 L Potassium 4.7 4.2 Chloride 99 96 L Carbon Dioxide 21 L 30 BUN 19 20 Creatinine 0.89 1.06 Glucose 107 102 Calcium 8.5 8.6 Liver Function 10/31/24 11/01/24 Range/Units 17:24 06:08 Total Bilirubin 0.7 0.9 (0.2-1.3) mg/dL AST 54 62 H (17-59) U/L ALT 42 39 (6-50) U/L Alkaline Phosphatase 89 78 (38-126) U/L Albumin 4.0 4.1 (3.5-5.1) g/dL Urine 10/31/24 Range/Units 20:18 Urine Color Dark red H (Yellow) Urine Appearance Turbid H (Clear) Urine pH 6.0 (5.0-9.0) Ur Specific [place] 1.010 (1.001-1.035) Urine Protein 2+ H (Negative) mg/dL Urine Glucose (UA) 3+ H (Negative) mg/dL
[2024-11-01] MEDS: oxyCODONE/ACETAMINOPHEN (*CRX) 10-325 MG TABLET 1 TAB PO (18:02)
[2024-11-01] MEDS: BISACODYL 5 MG TABLET EC 30 MG PO (18:02)
--- NOTE | 2024-11-01 18:38 | PM.IMPN ---
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 use terminologist with goal INR 2.5-3.5 -Did not use K-Centra as current bleeding is not life threatening and we don't want to overcorrect INR if at all possible -Occult positive stool and gross hematuria present -Vitamin K 10 mg oral given in ER -On admit decided to give 2 units FFP and recheck INR after transfusion -Check H&H or CBC every 4 hours and transfuse PRBCs if drops below 8 and bleeding still present -GI consult as below (2) Hematuria: Code(s): R31.9 - Hematuria, unspecified Status: Acute Assessment and Plan: -Gross hematuria noted on my exam of output -Started 2 days ago -Patient continued warfarin dosing despite hematuria -warfarin now held as above -Goal INR 2.5-3.5 due to mechanical heart valve -Consider abd/pelvis CT scan and/or consult to Urology if this continues after INR improvement (3) Atrial fibrillation with rapid ventricular response: Code(s): I48.91 - Unspecified atrial fibrillation Status: Acute Assessment and Plan: -History a-fib and tachy dysrhythmia noted at PCP office -Patient admitted to [facility], may need tele if downgraded after more medically stable (4) Acute upper GI bleed: Code(s): K92.2 - Gastrointestinal hemorrhage, unspecified Status: Acute Assessment and Plan: -Hemoccult positive -History of esophagitis -Pantoprazole 80 mg IV in ER and ordered 40 mg Q12HR to start in AM -GI consulted -Patient was NPO after midnight in case GI wants to go for EGD in the morning -Will want INR improved first (5) Pleural effusion: Code(s): J90 - Pleural effusion, not elsewhere classified Status: Acute Assessment and Plan: -Large left pleural effusion present on imaging -Dyspnea on exertion worsening over past couple weeks likely combination pleural effusion and anemia -Recent broken ribs, possible for this to be partial hemothorax -Not currently requiring oxygen -Order Echocardiogram to assess heart failure status (6) Hypertension: Qualifiers: Hypertension type: essential hypertension Qualified Code(s): I10 - Essential (primary) hypertension Code(s): I10 - Essential (primary) hypertension Status: Acute Assessment and Plan: -BP on softer side -Resume home medications, hold if hypotension develops (7) Mechanical heart valve present: Code(s): Z95.2 - Presence of prosthetic heart valve Status: Acute Assessment and Plan: -See above (8) Tobacco use: Code(s): Z72.0 - Tobacco use Status: Acute Assessment and Plan: -Former smoker, current vape user -Consider nicotine patch if symptoms of withdrawal Plan patient with chronic anticoagulation with warfarin for mechanical valve with INR range of 2.5-3.5. Upon arrival patient INR was 11 with c/o hematuria, and dyspnea on exertion. patient was treated with Vitamin K 10mg PO and FFP on the floor this morning his INR is 2.2, patient is seen by GI and recommending EGD to further evaluate his anemia which is scheduled for tomorrow. will hold warfarin for now place the on heparin drip and monitor, as patient with mechanical valve is high risk of stroke with subtherapeutic INR.patient is also found to have a large pleural effusion, patient is seen by speech language pathologist assistant, will monitor, Subjective Date/time seen: 11/01/24 18:38 Interval history: Hematuria, dyspnea on exertion Narrative: This is a 64 year old male patient who complained of hematuria for 2 days and dyspnea on exertion for about a week. Today patient went to see primary care provider in the office regarding his symptoms. PCP thought patient may have urine infection causing hematuria. Patient became significantly tachycardic with minor activity in the office. EKG obtained and EMS called to transport patient to the ER. Patient stated he didn't want to go by EMS but was dizzy so he agreed. Patient has past history of mechanical aortic valve replacement and is on warfarin with goal INR 2.5-3.5. In ER labs noted 2 point drop in hemoglobin from last on record. Additionally, INR noted to be 11.1. Urine grossly bloody and Digital Rectal exam for hemoccult was positive but noted brown stool on finger of ER provider. No melena, BRBPR or hematemesis reported. Patient denies any nose, mouth/gum bleeding or abnormal bruising. He notes dyspnea has slowly worsened over a few weeks since injuring left ribs. Vitamin K 10 mg oral given in ER. On admit we decided to give 2 units of FFP. Repeat Hemoglobin had dropped from 9.2 to 8.5 and will be rechecked again by morning. Will transfuse RBCs if drops below 8. GI consulted for evaluation. patient with chronic anticoagulation with warfarin for mechanical valve with INR range of 2.5-3.5. Upon arrival patient INR was 11 with c/o hematuria, and dyspnea on exertion. patient was treated with Vitamin K 10mg PO and FFP on the floor this morning his INR is 2.2, patient is seen by GI and recommending EGD to further evaluate his anemia which is scheduled for tomorrow. will hold warfarin for now place the on heparin drip and monitor, as patient with mechanical valve is high risk of stroke with subtherapeutic INR.patient is also found to have a large pleural effusion, patient is seen by speech language pathologist assistant, will monitor, Review of Systems Review of Systems: All systems reviewed & are unremarkable except as noted in HPI and below Exam Narrative: Patient is comfortable, NAD HEENT: eyes are clear and none icteric LUNGS:CTA HEART: RR S1S2 ABD: BS+, Soft and nontender Lower extremities: no edema SKIN: nonjaundiced Neuro: grossly intact. Objective Data Vital Signs Vital Signs: Vital Signs - 24 hr 10/31/24 18:45 10/31/24 19:00 10/31/24 19:15 Temperature Pulse Rate 99 96 100 Respiratory Rate 16 14 15 Blood Pressure 113/91 H Pulse Oximetry 97 95 97 Oxygen Delivery 10/31/24 20:45 10/31/24 20:46 10/31/24 21:01 Temperature Pulse Rate 96 95 95 Respiratory Rate 16 16 18 Blood Pressure 132/91 H 112/81 Pulse Oximetry 96 Oxygen Delivery 10/31/24 21:45 10/31/24 22:00 10/31/24 22:41 Temperature 36.5 C Pulse Rate 102 H 91 Respiratory Rate 22 H Blood Pressure 134/92 H Pulse Oximetry 98 Oxygen Delivery Room Air 10/31/24 23:02 10/31/24 23:03 10/31/24 23:13 Temperature Pulse Rate 86 87 Respiratory Rate 20 20 Blood Pressure Pulse Oximetry 97 Oxygen Delivery Room Air 11/01/24 00:00 11/01/24 00:00 11/01/24 00:00 Temperature 36.8 C Pulse Rate 97 89 Respiratory Rate 21 H Blood Pressure 120/79 Pulse Oximetry 96 Oxygen Delivery Room Air 11/01/24 01:43 11/01/24 02:00 11/01/24 02:03 Temperature 36.6 C 36.8 C Pulse Rate 90 81 86 Respiratory Rate 20 20 Blood Pressure 112/67 109/69 Pulse Oximetry 92 94 Oxygen Delivery 11/01/24 02:54 11/01/24 03:07 11/01/24 03:23 Temperature 36.7 C 36.6 C Pulse Rate 85 80 Respiratory Rate 18 20 Blood Pressure 112/73 109/64 Pulse Oximetry 95 95 Oxygen Delivery Room Air 11/01/24 03:23 11/01/24 04:00 11/01/24 04:00 Temperature 36.7 C 36.4 C Pulse Rate 81 81 83 Respiratory Rate 19 18 Blood Pressure 107/71 110/74 Pulse Oximetry 95 97 Oxygen Delivery 11/01/24 04:03 11/01/24 04:10 11/01/24 04:25 Temperature 36.4 C 36.6 C 36.7 C Pulse Rate 81 82 81 Respiratory Rate 18 18 18 Blood Pressure 110/74 109/77 107/71 Pulse Oximetry 97 97 98 Oxygen Delivery 11/01/24 05:25 11/01/24 06:00 11/01/24 06:25 Temperature 36.6 C 36.6 C Pulse Rate 79 82 80 Respiratory Rate 19 19 Blood Pressure 96/65 L 115/83 Pulse Oximetry 97 99 Oxygen Delivery 11/01/24 06:39 11/01/24 08:00 11/01/24 08:05 Temperature 36.8 C 36.6 C Pulse Rate 84 82 85 Respiratory Rate 18 18 Blood Pressure 118/86 116/75 Pulse Oximetry 94 97 Oxygen Delivery 11/01/24 10:00 11/01/24 11:45 11/01/24 12:00 Temperature 36.5 C Pulse Rate 87 90 91 Respiratory Rate 20 Blood Pressure 133/70 Pulse Oximetry 99 Oxygen Delivery 11/01/24 14:00 11/01/24 16:00 11/01/24 16:36 Temperature 36.9 C Pulse Rate 92 89 94 Respiratory Rate 22 H Blood Pressure 105/70 Pulse Oximetry 95 Oxygen Delivery Intake/Output Intake/Output: Intake & Output 10/29/24 10/30/24 10/31/24 11/01/24 23:59 23:59 23:59 23:59 Intake Total 3 Output Total 1969 Balance 63 Meds/Results Medications: Active Medications Generic Name Dose Route Start Last Admin Trade Name Freq PRN Reason Stop Dose Admin Albuterol/Ipratropium 3 ml 10/31/24 22:31 10/31/24 22:59 Ipratropium 0.5 Mg/Albuterol Sulfate 2.5 Mg Ampul.Neb 3 Ml INHALATION 3 ml Q6HRT PRN Administration Shortness Of Breath Or Wheezing Bupropion HCl 150 mg 11/01/24 09:00 11/01/24 09:50 Bupropion Hcl Xl (24 Hr) 150 Mg Tabcr PO 150 mg QAM TERRY Administration Cyclobenzaprine HCl 5 mg 10/31/24 22:38 11/01/24 18:03 Cyclobenzaprine Hcl 5 Mg Tablet PO 5 mg TID PRN Administration muscle spasm Empagliflozin 10 mg 11/01/24 09:00 11/01/24 09:50 Empagliflozin 10 Mg Tablet PO 10 mg DAILY TERRY Administration Heparin Sodium (Porcine) 7,000 units 11/01/24 17:20 Heparin Sodium 5,000 Units/Ml Vial IV PUSH PRN PRN aPTT less than 55 seconds Heparin Sodium (Porcine) 3,500 units 11/01/24 17:20 Heparin Sodium 5,000 Units/Ml Vial IV PUSH PRN PRN aPTT 55 - 70 seconds Heparin Sodium/Dextrose 25,000 units in 250 mls @ 15 mls/hr 11/01/24 17:35 Heparin Sodium/D5w 100 Units/Ml IV CONT .[id number] [facility] Protocol 1,500 UNITS/HR Oxycodone/Acetaminophen 1 tab 10/31/24 22:31 11/01/24 18:02 Oxycodone/Acetaminophen (*Crx) 10-325 Mg Tablet PO 1 tab TID PRN Administration pain 7-10 Paroxetine HCl 40 mg 11/01/24 09:00 11/01/24 09:50 Paroxetine 20 Mg Tablet PO 40 mg QAM TERRY Administration Paroxetine HCl 10 mg 11/01/24 09:00 11/01/24 09:51 Paroxetine 10 Mg Tablet PO 10 mg QAM TERRY Administration Perflutren Lipid Microsphere 0 ml 10/31/24 22:41 Perflutren Lipid Microspheres 1.5 Ml Vial Diluted To 10 Ml Total Volume IV PUSH 11/03/24 22:41 ONCE PRN adequate visualization Protocol Polyethylene Glycol 119 gm 11/01/24 20:00 Polyethylene Glycol 3350 238 Gm Bottle PO 11/01/24 20:01 ONCE ONE Polyethylene Glycol 119 gm 11/02/24 05:00 Polyethylene Glycol 3350 238 Gm Bottle PO 11/02/24 05:01 ONCE ONE Sacubitril/Valsartan 1 tablet 10/31/24 22:50 11/01/24 09:50 Sacubitril/Valsartan 49-51 Mg Tablet PO 1 tablet Q12HR TERRY Administration Sodium Chloride 1 gm 11/01/24 09:00 11/01/24 09:50 Sodium Chloride 1 Gm Tablet PO 1 gm DAILY TERRY Administration Spironolactone 25 mg 11/01/24 09:00 11/01/24 09:50 Spironolactone 25 Mg Tablet PO 25 mg DAILY TERRY Administration Warfarin Sodium 2 mg/ Warfarin 7 mg 11/01/24 17:00 11/01/24 17:52 Sodium 5 mg PO Not Given DAILY@1700 [facility] Radiology Results: ITS Impressions Chest X-Ray 10/31/24 18:19 IMPRESSION: Large left-sided pleural effusion without focal infiltrate. Chest CT 10/31/24 19:17 IMPRESSION: Large left-sided pleural effusion with adjacent compressive atelectasis, unchanged from plain film evaluation performed approximately 90 minutes earlier Labs Labs: Laboratory Results - last 24 hr 10/31/24 10/31/24 10/31/24 17:24 20:18 20:55 WBC RBC Hgb Hct MCV MCH MCHC RDW Plt Count MPV Immature Gran % (Auto) Neut % (Auto) Lymph % (Auto) [place] % (Auto) Eos % (Auto) Baso % (Auto) Lymph # (Auto) [place] # (Auto) Eos # (Auto) Baso # (Auto) Abs Immat Gran (auto) Absolute Neuts (auto) Absolute Nucleated RBC Nucleated RBC % PT 87.2 H INR 11.1 H* APTT 128.4 H Sodium Potassium Chloride Carbon Dioxide Anion Gap BUN Creatinine Estim Creat Clear Calc Estimated GFR Glucose Calcium Magnesium Iron TIBC % Saturation Total Bilirubin AST ALT Alkaline Phosphatase Total Protein Albumin Urine Color Dark red H Urine Appearance Turbid H Urine pH 6.0 Ur Specific [place] 1.010 Urine Protein 2+ H Urine Glucose (UA) 3+ H Urine Ketones 2+ H Ur Blood (Man) 3+ H Urine Nitrate Negative Urine Bilirubin 1+ H Urine Urobilinogen 0.2 Leukocyte Esterase Rfl Negative Urine RBC >100 H Urine WBC 0-3 Ur Squamous Epith Cells None seen Urine Bacteria Trace Blood Type O Positive Antibody Screen Negative Crossmatch See Detail 10/31/24 11/01/24 11/01/24 22:57 02:50 06:08 WBC 8.8 RBC 2.90 L Hgb 8.5 L 7.8 L 8.7 L Hct 27.5 L 24.3 L 27.0 L MCV 93.1 MCH 30.0 MCHC 32.2 RDW 15.8 H Plt Count 333 MPV 9.1 Immature Gran % (Auto) 0.9 H Neut % (Auto) 69.5 Lymph % (Auto) 15.0 L [place] % (Auto) 12.2 H Eos % (Auto) 1.7 Baso % (Auto) 0.7 Lymph # (Auto) 1.31 [place] # (Auto) 1.1 H Eos # (Auto) 0.2 Baso # (Auto) 0.1 Abs Immat Gran (auto) 0.08 H Absolute Neuts (auto) 6.1 Absolute Nucleated RBC 0.000 Nucleated RBC % 0.0 PT 24.7 H D INR 2.2 APTT Sodium 134 L Potassium 4.2 Chloride 96 L Carbon Dioxide 30 Anion Gap 8 BUN 20 Creatinine 1.06 Estim Creat Clear Calc 73 Estimated GFR > 60 Glucose 102 Calcium 8.6 Magnesium 2.0 Iron 70 TIBC 353 % Saturation 20 Total Bilirubin 0.9 AST 62 H ALT 39 Alkaline Phosphatase 78 Total Protein 7.0 Albumin 4.1 Urine Color Urine Appearance Urine pH Ur Specific [place] Urine Protein Urine Glucose (UA) Urine Ketones Ur Blood (Man) Urine Nitrate Urine Bilirubin Urine Urobilinogen Leukocyte Esterase Rfl Urine RBC Urine WBC Ur Squamous Epith Cells Urine Bacteria Blood Type Antibody Screen Crossmatch 11/01/24 07:48 WBC RBC Hgb 8.8 L Hct 28.4 L MCV MCH MCHC RDW Plt Count MPV Immature Gran % (Auto) Neut % (Auto) Lymph % (Auto) [place] % (Auto) Eos % (Auto) Baso % (Auto) Lymph # (Auto) [place] # (Auto) Eos # (Auto) Baso # (Auto) Abs Immat Gran (auto) Absolute Neuts (auto) Absolute Nucleated RBC Nucleated RBC % PT INR APTT Sodium Potassium Chloride Carbon Dioxide Anion Gap BUN Creatinine Estim Creat Clear Calc Estimated GFR Glucose Calcium Magnesium Iron TIBC % Saturation Total Bilirubin AST ALT Alkaline Phosphatase Total Protein Albumin Urine Color Urine Appearance Urine pH Ur Specific [place] Urine Protein Urine Glucose (UA) Urine Ketones Ur Blood (Man) Urine Nitrate Urine Bilirubin Urine Urobilinogen Leukocyte Esterase Rfl Urine RBC Urine WBC Ur Squamous Epith Cells Urine Bacteria Blood Type Antibody Screen Crossmatch
[2024-11-01] MEDS: HEPARIN SOD/D5W 100 UNITS/ML 25,000 UNITS/250 ML BAG 15 UNITS IV CONT (18:43)
[2024-11-01 18:44] LABS: Basophils Absolute Auto 0.1 K/mm3 (0.0-0.1); Basophils Percent Auto 0.6 % (0.2-1.2); Eosinophils Absolute Auto 0.1 K/mm3 (0-0.3); Eosinophils Percent Auto 1.2 % (0-4.4); Hematocrit 30.6 % (42.0-52.0); Hemoglobin 9.4 g/dL (14.0-18.0); Lymphocytes Absolute Auto 1.11 K/mm3 (0.9-3.2); Lymphocytes Percent Auto 10.6 % (18.3-44.2); Mean Corpuscular HGB Conc 30.7 g/dl (32-36); Mean Corpuscular Hemoglobin 29.7 pg (26-34); Mean Corpuscular Volume 96.8 fl (80-100); Mean Platelet Volume 9.3 fl (7.4-10.4); Monocytes Absolute Auto 1.3 K/mm3 (0.1-0.6); Monocytes Percent Auto 12.7 % (2.6-8.5); Neutrophils Absolute Auto 7.8 K/mm3 (1.3-6.7); Neutrophils Percent Auto 73.9 % (45.5-73.1); Platelet Count Result 395 k/mm3 (150-375); Red Blood Count 3.16 M/mm3 (4.6-6.20); Red Cell Distribution Width 16.1 % (11.5-14.5); White Blood Count 10.5 K/mm3 (4.5-10.0)
[2024-11-01 19:07] LABS: INR 2.9
[2024-11-01 19:09] LABS: Partial Thromboplastin Time 67.4 Seconds (22.3-36.8)
[2024-11-01] MEDS: polyethylene glycoL 3350 238 GM BOTTLE 119 GM PO (20:12)
[2024-11-02] VITALS (22 sets, daily range): BP systolic 91–129; BP diastolic 53–81; PULSE 73–106; RESP 16–22; TEMP 35.9–37; O2SAT 91–97
[2024-11-02] MEDS: polyethylene glycoL 3350 238 GM BOTTLE 119 GM PO ×2 (04:02→09:53)
[2024-11-02 05:11] LABS: Basophils Absolute Auto 0.1 K/mm3 (0.0-0.1); Basophils Percent Auto 0.8 % (0.2-1.2); Eosinophils Absolute Auto 0.3 K/mm3 (0-0.3); Eosinophils Percent Auto 3.1 % (0-4.4); Hematocrit 29.5 % (42.0-52.0); Hemoglobin 9.2 g/dL (14.0-18.0); Immature Granulocyte Absolute 0.06 K/mm3 (0.00-0.031); Immature Granulocyte Percent A 0.7 % (0-0.5); Lymphocytes Absolute Auto 1.01 K/mm3 (0.9-3.2); Lymphocytes Percent Auto 11.6 % (18.3-44.2); Mean Corpuscular HGB Conc 31.2 g/dl (32-36); Mean Corpuscular Volume 96.1 fl (80-100); Mean Platelet Volume 9.3 fl (7.4-10.4); Monocytes Absolute Auto 1.1 K/mm3 (0.1-0.6); Monocytes Percent Auto 12.5 % (2.6-8.5); Neutrophils Absolute Auto 6.2 K/mm3 (1.3-6.7); Neutrophils Percent Auto 71.3 % (45.5-73.1); Platelet Count Result 358 k/mm3 (150-375); Red Blood Count 3.07 M/mm3 (4.6-6.20); Red Cell Distribution Width 16.3 % (11.5-14.5); White Blood Count 8.7 K/mm3 (4.5-10.0)
[2024-11-02 05:35] LABS: INR 3.5; Prothrombin Time 35.7 Seconds (11.1-14.7)
[2024-11-02 06:47] LABS: Alanine Aminotransferase 33 U/L (6-50); Albumin Level 3.9 g/dL (3.5-5.1); Alkaline Phosphatase 75 U/L (38-126); Anion Gap 8 mmol/L (4-12); Aspartate Amino Transferase 46 U/L (17-59); Blood Urea Nitrogen 15 mg/dL (9-20); Calcium 8.5 mg/dL (8.4-10.2); Carbon Dioxide 27 mmol/L (22-30); Chloride 96 mmol/L (98-107); Estimated CRCL calculation 83 ml/min; Estimated Glomerular Filt Rate > 60; Glucose 126 mg/dL (65-110); Potassium 3.6 mmol/L (3.4-5.0); Sodium 131 mmol/L (137-145)
[2024-11-02] MEDS: SPIRONOLACTONE 25 MG TABLET PO (09:54)
[2024-11-02] MEDS: buPROPion HCL XL (24 HR) 150 MG TABCR PO (09:54)
[2024-11-02] MEDS: SODIUM CHLORIDE 1 GM TABLET PO (09:54)
[2024-11-02] MEDS: PARoxetine 20 MG TABLET 40 MG PO (09:54)
[2024-11-02] MEDS: SACUBITRIL/VALSARTAN 49-51 MG TABLET 1 TABLET PO ×2 (09:54→20:39)
[2024-11-02] MEDS: EMPAGLIFLOZIN 10 MG TABLET PO (09:54)
[2024-11-02] MEDS: PARoxetine 10 MG TABLET PO (09:55)
[2024-11-02] MEDS: LACTATED RINGERS 1,000 ML 150 ML IV CONT (12:41)
--- NOTE | 2024-11-02 12:42 | SUR.PREOP ---
Pt to have colonoscopy only per Dr. Cross.
--- NOTE | 2024-11-02 13:01 | WPDANESEPPF ---
Anes - Initial Pre Proc Eval Procedure: Operation Date: 11/02/24 13:30 Proposed Procedures p Colonoscopy - Tyree Cross MD Date/Time: 11/02/24 13:01 Surgeon: Avila Boyd MD Pre Op Diagnosis: Hematuria, upper GI bleed, supratherapeutic INR, Patient Data Age: 64 Gender: M Height: 1.88 m Weight: 89 kg Last Vital Signs Temp 96.7 F L 11/02/24 12:34 Pulse 99 11/02/24 12:34 Resp 22 H 11/02/24 12:34 BP 129/78 11/02/24 12:34 Pulse Ox 96 11/02/24 12:34 O2 Del Method Room Air 11/02/24 12:34 FiO2 21 11/01/24 21:23 Allergies Allergy/AdvReac Type Severity Reaction Status Date / Time Penicillins Allergy Unknown Rash Verified 11/02/24 12:26 Home Medications ?Medication ?Instructions ?Recorded ?Confirmed ?Type aspirin 81 mg tablet 81 mg PO DAILY 06/17/21 10/31/24 History sacubitril 49 mg-valsartan 51 mg 1 tablet PO BID #90 tabs 05/28/24 10/31/24 Rx tablet (Entresto) omeprazole 20 mg capsule,delayed 20 mg PO DAILY #90 caps 07/25/24 10/31/24 Rx release warfarin 7.5 mg tablet 7.5 mg PO . #30 tabs 07/26/24 10/31/24 Rx albuterol 90 mcg-budesonide 80 2 inh inhalation ONCE #5.9 grams 08/29/24 10/31/24 Rx mcg/actuation HFA aerosol inhaler (Airsupra) cyclobenzaprine 5 mg tablet 5 mg PO TID PRN muscle spasm #30 08/29/24 10/31/24 Rx tabs sodium chloride 1,000 mg soluble 1,000 mg PO DAILY #30 tabs 08/30/24 10/31/24 Rx tablet oxycodone-acetaminophen 10 mg-325 1 tablet PO TID PRN pain #90 tabs 08/31/24 10/31/24 Rx mg tablet warfarin 10 mg tablet 10 mg PO .COMPLEX #90 tabs 09/13/24 10/31/24 Rx bupropion HCl 150 mg 24 hr tablet, 150 mg PO QAM #90 tabs 09/15/24 10/31/24 Rx extended release spironolactone 25 mg tablet 25 mg PO DAILY #90 tabs 09/17/24 10/31/24 Rx empagliflozin 10 mg tablet 10 mg PO DAILY #90 tabs 10/13/24 10/31/24 Rx (Jardiance) paroxetine HCl 40 mg tablet 50 mg PO DAILY 10/31/24 10/31/24 History Laboratory Tests 11/01/24 11/02/24 18:24 04:51 WBC 10.5 H K/mm3 8.7 K/mm3 (4.5-10.0) (4.5-10.0) RBC 3.16 L M/mm3 3.07 L M/mm3 (4.6-6.20) (4.6-6.20) Hgb 9.4 L g/dL 9.2 L g/dL (14.0-18.0) (14.0-18.0) Hct 30.6 L % 29.5 L % (42.0-52.0) (42.0-52.0) MCV 96.8 fl 96.1 fl (80-100) (80-100) MCH 29.7 pg 30.0 pg (26-34) (26-34) MCHC 30.7 L g/dl 31.2 L g/dl (32-36) (32-36) RDW 16.1 H % 16.3 H % (11.5-14.5) (11.5-14.5) Plt Count 395 H k/mm3 358 k/mm3 (150-375) (150-375) MPV 9.3 fl 9.3 fl (7.4-10.4) (7.4-10.4) Immature Gran % (Auto) 1.0 H % 0.7 H % (0-0.5) (0-0.5) Neut % (Auto) 73.9 H % 71.3 % (45.5-73.1) (45.5-73.1) Lymph % (Auto) 10.6 L % 11.6 L % (18.3-44.2) (18.3-44.2) [place] % (Auto) 12.7 H % 12.5 H % (2.6-8.5) (2.6-8.5) Eos % (Auto) 1.2 % 3.1 % (0-4.4) (0-4.4) Baso % (Auto) 0.6 % 0.8 % (0.2-1.2) (0.2-1.2) Lymph # (Auto) 1.11 K/mm3 1.01 K/mm3 (0.9-3.2) (0.9-3.2) [place] # (Auto) 1.3 H K/mm3 1.1 H K/mm3 (0.1-0.6) (0.1-0.6) Eos # (Auto) 0.1 K/mm3 0.3 K/mm3 (0-0.3) (0-0.3) Baso # (Auto) 0.1 K/mm3 0.1 K/mm3 (0.0-0.1) (0.0-0.1) Abs Immat Gran (auto) 0.10 H K/mm3 0.06 H K/mm3 (0.00-0.031) (0.00-0.031) Absolute Neuts (auto) 7.8 H K/mm3 6.2 K/mm3 (1.3-6.7) (1.3-6.7) Absolute Nucleated RBC 0.000 K/mm3 0.000 K/mm3 (0.0-0.012) (0.0-0.012) Nucleated RBC % 0.0 % 0.0 % (0.0-0.2) (0.0-0.2) PT 31.0 H D Seconds 35.7 H Seconds (11.1-14.7) (11.1-14.7) INR 2.9 3.5 APTT 67.4 H Seconds (22.3-36.8) Sodium 131 L mmol/L (137-145) Potassium 3.6 mmol/L (3.4-5.0) Chloride 96 L mmol/L (98-107) Carbon Dioxide 27 mmol/L (22-30) Anion Gap 8 mmol/L (4-12) BUN 15 D mg/dL (9-20) Creatinine 0.92 mg/dL (0.7-1.3) Estim Creat Clear Calc 83 ml/min Estimated GFR > 60 (59 - ) Glucose 126 H mg/dL (65-110) Calcium 8.5 mg/dL (8.4-10.2) Magnesium 2.0 mg/dL (1.6-2.3) Total Bilirubin 1.0 mg/dL (0.2-1.3) AST 46 U/L (17-59) ALT 33 U/L (6-50) Alkaline Phosphatase 75 U/L (38-126) Total Protein 7.0 g/dL (6.3-8.2) Albumin 3.9 g/dL (3.5-5.1) Patient hx anesthesia problems: none Family hx anesthesia problems: none Results Review: All pre-operative results and documents have been reviewed as part of the pre-operative evaluation. [facility] Past Medical History Medical History (Updated 11/01/24 @ 16:23 by Rosangela Randall APRN) Gross hematuria Tachycardia Leukocytosis Anemia Hyponatremia Otitis media with effusion Orthostatic hypotension Pleural effusion Wheezing on right side of chest on exhalation Ribs, multiple fractures COPD (chronic obstructive pulmonary disease) GERD (gastroesophageal reflux disease) BPH (benign prostatic hyperplasia) Lipoma of back Periumbilical hernia Chronic cough Erectile dysfunction Acute wheezy bronchitis Esophagitis Screen for colon cancer Screening for prostate cancer BMI 25.0-25.9,adult Tobacco abuse disorder Anxiety Hypertension Osteoarthritis Surgical History Surgical History Heart valve replaced Status post left partial knee replacement 1999 History of total right knee replacement 2009 Family History Family History Father , 80 years old Dementia Atrial fibrillation Mother , 72 years old CHF (congestive heart failure) Sibling Obesity Diabetes mellitus Obstructive sleep apnea Social History Social History Social History: He lives in [facility] with his of 32 years. He retired in the early spring. 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 He started smoking at 45 years of age and has smoked between 1-1.5 packs per day. He drinks 2 or 3 beers several times a week. He uses 2 or 3 marijuana joints a week. He has 1 son and 1 daughter. The patient has 2 brothers and 2 sisters. His 1 brother is obese and has diabetes and obstructive sleep apnea. His remaining siblings are relatively healthy. Primary care physician: Dr. Kevin Mac Surrogate decision maker: Tierra Morejon () Smoking packs per day: 1 Smoking cigarettes per day: 20.0 Years smoked: 20 Smoking pack-years: 20.00 Smoking status: Former smoker Tobacco type: e-cigarettes/vaping Smoking end date: 04/22/20 Additional smoking assessment comments: CURRENTLY TRYING TO QUIT Alcohol intake: current Drinks per week: 30 Substance use: current Substance use type: marijuana Other substance usage details: COUPLE TIMES A WEEK AT MOST Last use: 10/26/24 Do You Feel Safe in your Home?: Yes Lack of Transportation: No Lack of Food: Never True Current Housing: I Have Housing Concerned About Future Housing: No Difficulty Paying Gas/Electric Bills: No Difficulty Paying for Meds: No Currently Unemployed: No Education: High School Diploma/GED Difficulty w/ Childcare or Family Care: No Living arrangements: with family Occupation/Education: retired 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 Informed Consent: The patient's anesthetic plan and its attendant risks and benefits were discussed with the patient/family/POA. Questions were solicited and answers provided to the satisfaction of the patient/family/POA.
--- NOTE | 2024-11-02 13:27 | WPDGIPROGNO ---
Progress Note: A&P Assessment and Plan (1) Anemia: Code(s): D64.9 - Anemia, unspecified Status: Acute Assessment and Plan: see colonoscopy report. The findings on previous colonoscopy 2 years ago showing a benign ulcerated cecal mass are not present in this exam. This could have been secondary to the use of NSAIDs at that time. There is no evidence of inflammatory bowel disease now. Anemia is not iron deficient therefore it should be evaluated by Hematology as stated in yesterday's note. will sign off for now, please feel free to contact us for any other issues related to our specialty. Subjective Date/time seen: 11/02/24 13:27 Objective Data Vital Signs Vital Signs: Vital Signs - 24 hr 11/01/24 14:00 11/01/24 16:00 11/01/24 16:36 Temperature 98.4 F Pulse Rate 92 89 94 Respiratory Rate 22 H Blood Pressure 105/70 Pulse Oximetry 95 Oxygen Delivery Fraction of Inspired Oxygen 11/01/24 18:00 11/01/24 19:48 11/01/24 20:00 Temperature 97.7 F Pulse Rate 93 87 88 Respiratory Rate 18 Blood Pressure 131/88 Pulse Oximetry 95 Oxygen Delivery Fraction of Inspired Oxygen 11/01/24 20:15 11/01/24 21:23 11/01/24 22:00 Temperature Pulse Rate 87 81 85 Respiratory Rate 18 20 Blood Pressure Pulse Oximetry 95 97 Oxygen Delivery Room Air Room Air Fraction of Inspired Oxygen 21 11/01/24 23:29 11/02/24 00:00 11/02/24 02:00 Temperature 97.7 F Pulse Rate 86 83 89 Respiratory Rate 20 Blood Pressure 121/73 Pulse Oximetry 98 Oxygen Delivery Fraction of Inspired Oxygen 11/02/24 03:40 11/02/24 04:00 11/02/24 06:00 Temperature 98.0 F Pulse Rate 94 84 86 Respiratory Rate 18 Blood Pressure 118/81 Pulse Oximetry 96 Oxygen Delivery Fraction of Inspired Oxygen 11/02/24 07:54 11/02/24 08:00 11/02/24 08:00 Temperature 98.1 F Pulse Rate 93 73 Respiratory Rate 20 Blood Pressure 121/77 Pulse Oximetry 97 Oxygen Delivery Room Air Fraction of Inspired Oxygen 11/02/24 10:00 11/02/24 11:47 11/02/24 12:00 Temperature 98.1 F Pulse Rate 95 96 93 Respiratory Rate 20 Blood Pressure 113/77 Pulse Oximetry 97 Oxygen Delivery Fraction of Inspired Oxygen 11/02/24 12:34 Temperature 96.7 F L Pulse Rate 99 Respiratory Rate 22 H Blood Pressure 129/78 Pulse Oximetry 96 Oxygen Delivery Room Air Fraction of Inspired Oxygen Intake/Output Intake/Output: Intake & Output 10/30/24 10/31/24 11/01/24 11/02/24 23:59 23:59 23:59 23:59 Intake Total 2112 0 Output Total 1970 600 Balance 142 -600 Meds/Results Medications: Active Medications Generic Name Dose Route Start Last Admin Trade Name Freq PRN Reason Stop Dose Admin Albuterol/Ipratropium 3 ml 10/31/24 22:31 10/31/24 22:59 Ipratropium 0.5 Mg/Albuterol Sulfate 2.5 Mg Ampul.Neb 3 Ml INHALATION 3 ml Q6HRT PRN Administration Shortness Of Breath Or Wheezing Bupropion HCl 150 mg 11/01/24 09:00 11/02/24 09:54 Bupropion Hcl Xl (24 Hr) 150 Mg Tabcr PO 150 mg QAM TERRY Administration Cyclobenzaprine HCl 5 mg 10/31/24 22:38 11/01/24 18:03 Cyclobenzaprine Hcl 5 Mg Tablet PO 5 mg TID PRN Administration muscle spasm Empagliflozin 10 mg 11/01/24 09:00 11/02/24 09:54 Empagliflozin 10 Mg Tablet PO 10 mg DAILY TERRY Administration Heparin Sodium (Porcine) 7,000 units 11/01/24 17:20 Heparin Sodium 5,000 Units/Ml Vial IV PUSH PRN PRN aPTT less than 55 seconds Heparin Sodium (Porcine) 3,500 units 11/01/24 17:20 Heparin Sodium 5,000 Units/Ml Vial IV PUSH PRN PRN aPTT 55 - 70 seconds Heparin Sodium/Dextrose 25,000 units in 250 mls @ 0 mls/hr 11/01/24 17:35 11/01/24 23:59 Heparin Sodium/D5w 100 Units/Ml IV CONT 0 units/hr .Q0M TERRY 0 mls/hr Titration Protocol Lactated Ringer's 1,000 mls @ 150 mls/hr 11/02/24 12:35 11/02/24 13:24 Lr - Lactated Ringers Iv IV CONT 150 mls/hr .Q6H40M TERRY Infusion Oxycodone/Acetaminophen 1 tab 10/31/24 22:31 11/01/24 18:02 Oxycodone/Acetaminophen (*Crx) 10-325 Mg Tablet PO 1 tab TID PRN Administration pain 7-10 Paroxetine HCl 40 mg 11/01/24 09:00 11/02/24 09:54 Paroxetine 20 Mg Tablet PO 40 mg QAM TERRY Administration Paroxetine HCl 10 mg 11/01/24 09:00 11/02/24 09:55 Paroxetine 10 Mg Tablet PO 10 mg QAM TERRY Administration Perflutren Lipid Microsphere 0 ml 10/31/24 22:41 Perflutren Lipid Microspheres 1.5 Ml Vial Diluted To 10 Ml Total Volume IV PUSH 11/03/24 22:41 ONCE PRN adequate visualization Protocol Sacubitril/Valsartan 1 tablet 10/31/24 22:50 11/02/24 09:54 Sacubitril/Valsartan 49-51 Mg Tablet PO 1 tablet Q12HR TERRY Administration Sodium Chloride 1 gm 11/01/24 09:00 11/02/24 09:54 Sodium Chloride 1 Gm Tablet PO 1 gm DAILY TERRY Administration Spironolactone 25 mg 11/01/24 09:00 11/02/24 09:54 Spironolactone 25 Mg Tablet PO 25 mg DAILY [facility] Administration Warfarin Sodium 2 mg/ Warfarin 7 mg 11/01/24 17:00 11/01/24 17:52 Sodium 5 mg PO Not Given DAILY@1700 [facility] Radiology Results: ITS Impressions Chest X-Ray 10/31/24 18:19 IMPRESSION: Large left-sided pleural effusion without focal infiltrate. Chest CT 10/31/24 19:17 IMPRESSION: Large left-sided pleural effusion with adjacent compressive atelectasis, unchanged from plain film evaluation performed approximately 90 minutes earlier Labs Labs: Laboratory Results - last 24 hr 11/01/24 11/02/24 18:24 04:51 WBC 10.5 H 8.7 RBC 3.16 L 3.07 L Hgb 9.4 L 9.2 L Hct 30.6 L 29.5 L MCV 96.8 96.1 MCH 29.7 30.0 MCHC 30.7 L 31.2 L RDW 16.1 H 16.3 H Plt Count 395 H 358 MPV 9.3 9.3 Immature Gran % (Auto) 1.0 H 0.7 H Neut % (Auto) 73.9 H 71.3 Lymph % (Auto) 10.6 L 11.6 L [place] % (Auto) 12.7 H 12.5 H Eos % (Auto) 1.2 3.1 Baso % (Auto) 0.6 0.8 Lymph # (Auto) 1.11 1.01 [place] # (Auto) 1.3 H 1.1 H Eos # (Auto) 0.1 0.3 Baso # (Auto) 0.1 0.1 Abs Immat Gran (auto) 0.10 H 0.06 H Absolute Neuts (auto) 7.8 H 6.2 Absolute Nucleated RBC 0.000 0.000 Nucleated RBC % 0.0 0.0 PT 31.0 H D 35.7 H INR 2.9 3.5 APTT 67.4 H Sodium 131 L Potassium 3.6 Chloride 96 L Carbon Dioxide 27 Anion Gap 8 BUN 15 D Creatinine 0.92 Estim Creat Clear Calc 83 Estimated GFR > 60 Glucose 126 H Calcium 8.5 Magnesium 2.0 Total Bilirubin 1.0 AST 46 ALT 33 Alkaline Phosphatase 75 Total Protein 7.0 Albumin 3.9
--- NOTE | 2024-11-02 14:49 | PC.NURSE ---
Received order from [facility] to d/c warfarin and restart heparin gtt. PT to be NPO at midnight for possible thoracentesis. MD to place further orders and consult.
[2024-11-02 15:04] LABS: Basophils Absolute Auto 0.1 K/mm3 (0.0-0.1); Basophils Percent Auto 0.5 % (0.2-1.2); Eosinophils Absolute Auto 0.1 K/mm3 (0-0.3); Eosinophils Percent Auto 0.9 % (0-4.4); Hematocrit 29.6 % (42.0-52.0); Hemoglobin 9.2 g/dL (14.0-18.0); Immature Granulocyte Absolute 0.06 K/mm3 (0.00-0.031); Immature Granulocyte Percent A 0.6 % (0-0.5); Lymphocytes Absolute Auto 0.69 K/mm3 (0.9-3.2); Lymphocytes Percent Auto 6.4 % (18.3-44.2); Mean Corpuscular HGB Conc 31.1 g/dl (32-36); Mean Corpuscular Hemoglobin 29.7 pg (26-34); Mean Corpuscular Volume 95.5 fl (80-100); Mean Platelet Volume 8.9 fl (7.4-10.4); Monocytes Percent Auto 9.7 % (2.6-8.5); Neutrophils Absolute Auto 8.8 K/mm3 (1.3-6.7); Neutrophils Percent Auto 81.9 % (45.5-73.1); Platelet Count Result 400 k/mm3 (150-375); Red Cell Distribution Width 16.6 % (11.5-14.5); White Blood Count 10.8 K/mm3 (4.5-10.0)
[2024-11-02 15:16] LABS: INR 3.7; Prothrombin Time 37.7 Seconds (11.1-14.7)
[2024-11-02 15:17] LABS: Partial Thromboplastin Time 29.9 Seconds (22.3-36.8)
--- NOTE | 2024-11-02 15:48 | PC.NURSE ---
Received order from DR Cabrales to keep pt NPO at midnight, coagulation to be checked in AM. keep heparin gtt going until it is decided if a thoracentesis can be done tomorrow. IR unable to give an estimated time for thoracentesis due to not knowing AM coagulation.
[2024-11-02] MEDS: HEPARIN SOD/D5W 100 UNITS/ML 25,000 UNITS/250 ML BAG 15 UNITS IV CONT (16:01)
--- NOTE | 2024-11-02 17:51 | P.PNIM_ITS ---
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 use terminal clerk with goal INR 2.5-3.5 -Did not use K-Centra as current bleeding is not life threatening and we don't want to overcorrect INR if at all possible -Occult positive stool and gross hematuria present -Vitamin K 10 mg oral given in ER -On admit decided to give 2 units FFP and recheck INR after transfusion -Check H&H or CBC every 4 hours and transfuse PRBCs if drops below 8 and bleeding still present -GI consult as below (2) Hematuria: Code(s): R31.9 - Hematuria, unspecified Status: Acute Assessment and Plan: -Gross hematuria noted on my exam of output -Started 2 days ago -Patient continued warfarin dosing despite hematuria -warfarin now held as above -Goal INR 2.5-3.5 due to mechanical heart valve -Consider abd/pelvis CT scan and/or consult to Urology if this continues after INR improvement (3) Atrial fibrillation with rapid ventricular response: Code(s): I48.91 - Unspecified atrial fibrillation Status: Acute Assessment and Plan: -History a-fib and tachy dysrhythmia noted at PCP office -Patient admitted to [facility], may need tele if downgraded after more medically stable (4) Acute upper GI bleed: Code(s): K92.2 - Gastrointestinal hemorrhage, unspecified Status: Acute Assessment and Plan: -Hemoccult positive -History of esophagitis -Pantoprazole 80 mg IV in ER and ordered 40 mg Q12HR to start in AM -GI consulted -Patient was NPO after midnight in case GI wants to go for EGD in the morning -Will want INR improved first (5) Pleural effusion: Code(s): J90 - Pleural effusion, not elsewhere classified Status: Acute Assessment and Plan: -Large left pleural effusion present on imaging -Dyspnea on exertion worsening over past couple weeks likely combination pleural effusion and anemia -Recent broken ribs, possible for this to be partial hemothorax -Not currently requiring oxygen -Order Echocardiogram to assess heart failure status (6) Hypertension: Qualifiers: Hypertension type: essential hypertension Qualified Code(s): I10 - Essential (primary) hypertension Code(s): I10 - Essential (primary) hypertension Status: Acute Assessment and Plan: -BP on softer side -Resume home medications, hold if hypotension develops (7) Mechanical heart valve present: Code(s): Z95.2 - Presence of prosthetic heart valve Status: Acute Assessment and Plan: -See above (8) Tobacco use: Code(s): Z72.0 - Tobacco use Status: Acute Assessment and Plan: -Former smoker, current vape user -Consider nicotine patch if symptoms of withdrawal Plan patient with chronic anticoagulation with warfarin for mechanical valve with INR range of 2.5-3.5. Upon arrival patient INR was 11 with c/o hematuria, and dyspnea on exertion. patient was treated with Vitamin K 10mg PO in the ER and FFP on the floor, started on heparin drip, this morning his INR is 3.5, patient is seen by GI and recommending colonoscopy to further evaluate his anemia, patient had colonoscopy today which showed few small-size uncomplicated internal hemorrhoids were seen in the rectum, otherwise colon was remarkable, will hold warfarin for now place the on heparin drip and monitor, as patient with mechanical valve is high risk of stroke with subtherapeutic INR.patient is also found to have a large pleural effusion, patient is seen by logistics analytics manager is scheduled for thoracenteses tomorrow, will monitor, Subjective Date/time seen: 11/02/24 17:51 Interval history: Hematuria, dyspnea on exertion Narrative: This is a 64 year old male patient who complained of hematuria for 2 days and dyspnea on exertion for about a week. Today patient went to see primary care provider in the office regarding his symptoms. PCP thought patient may have urine infection causing hematuria. Patient became significantly tachycardic with minor activity in the office. EKG obtained and EMS called to transport patient to the ER. Patient stated he didn't want to go by EMS but was dizzy so he agreed. Patient has past history of mechanical aortic valve replacement and is on warfarin with goal INR 2.5-3.5. In ER labs noted 2 point drop in hemoglobin from last on record. Additionally, INR noted to be 11.1. Urine grossly bloody and Digital Rectal exam for hemoccult was positive but noted brown stool on finger of ER provider. No melena, BRBPR or hematemesis reported. Patient denies any nose, mouth/gum bleeding or abnormal bruising. He notes dyspnea has slowly worsened over a few weeks since injuring left ribs. Vitamin K 10 mg oral given in ER. On admit we decided to give 2 units of FFP. Repeat Hemoglobin had dropped from 9.2 to 8.5 and will be rechecked again by morning. Will transfuse RBCs if drops below 8. GI consulted for evaluation. patient with chronic anticoagulation with warfarin for mechanical valve with INR range of 2.5-3.5. Upon arrival patient INR was 11 with c/o hematuria, and dyspnea on exertion. patient was treated with Vitamin K 10mg PO in the ER and FFP on the floor, started on heparin drip, this morning his INR is 3.5, patient is seen by GI and recommending colonoscopy to further evaluate his anemia, patient had colonoscopy today which showed few small-size uncomplicated internal hemorrhoids were seen in the rectum, otherwise colon was remarkable, will hold warfarin for now place the on heparin drip and monitor, as patient with mechanical valve is high risk of stroke with subtherapeutic INR.patient is also found to have a large pleural effusion, patient is seen by logistics analytics manager is scheduled for thoracenteses tomorrow, will monitor, Review of Systems Review of Systems: All systems reviewed & are unremarkable except as noted in HPI and below Exam Narrative: Patient is comfortable, NAD HEENT: eyes are clear and none icteric LUNGS:CTA HEART: RR S1S2 ABD: BS+, Soft and nontender Lower extremities: no edema SKIN: nonjaundiced Neuro: grossly intact. Objective Data Vital Signs Vital Signs: Vital Signs - 24 hr 11/01/24 18:00 11/01/24 19:48 11/01/24 20:00 Temperature 36.5 C Pulse Rate 93 87 88 Respiratory Rate 18 Blood Pressure 131/88 Pulse Oximetry 95 Oxygen Delivery Fraction of Inspired Oxygen 11/01/24 20:15 11/01/24 21:23 11/01/24 22:00 Temperature Pulse Rate 87 81 85 Respiratory Rate 18 20 Blood Pressure Pulse Oximetry 95 97 Oxygen Delivery Room Air Room Air Fraction of Inspired Oxygen 11/01/24 23:29 11/02/24 00:00 11/02/24 02:00 Temperature 36.5 C Pulse Rate 86 83 89 Respiratory Rate 20 Blood Pressure 121/73 Pulse Oximetry 98 Oxygen Delivery Fraction of Inspired Oxygen 11/02/24 03:40 11/02/24 04:00 11/02/24 06:00 Temperature 36.7 C Pulse Rate 94 84 86 Respiratory Rate 18 Blood Pressure 118/81 Pulse Oximetry 96 Oxygen Delivery Fraction of Inspired Oxygen 11/02/24 07:54 11/02/24 08:00 11/02/24 08:00 Temperature 36.7 C Pulse Rate 93 73 Respiratory Rate 20 Blood Pressure 121/77 Pulse Oximetry 97 Oxygen Delivery Room Air Fraction of Inspired Oxygen 11/02/24 10:00 11/02/24 11:47 11/02/24 12:00 Temperature 36.7 C Pulse Rate 95 96 93 Respiratory Rate 20 Blood Pressure 113/77 Pulse Oximetry 97 Oxygen Delivery Fraction of Inspired Oxygen 11/02/24 12:34 11/02/24 13:26 11/02/24 13:36 Temperature 35.9 C L Pulse Rate 99 85 87 Respiratory Rate 22 H 22 H 22 H Blood Pressure 129/78 91/64 L 92/66 L Pulse Oximetry 96 91 91 Oxygen Delivery Room Air Room Air Room Air Fraction of Inspired Oxygen 11/02/24 13:45 11/02/24 14:00 11/02/24 15:53 Temperature 37.0 C Pulse Rate 81 98 95 Respiratory Rate 22 H 18 Blood Pressure 110/71 98/53 L Pulse Oximetry 91 96 Oxygen Delivery Room Air Fraction of Inspired Oxygen 11/02/24 16:00 11/02/24 16:00 Temperature Pulse Rate 106 H Respiratory Rate Blood Pressure Pulse Oximetry Oxygen Delivery Room Air Fraction of Inspired Oxygen Intake/Output Intake/Output: Intake & Output 10/30/24 10/31/24 11/01/24 11/02/24 23:59 23:59 23:59 23:59 Intake Total 2112 200 Output Total 1970 600 Balance 142 -400 Meds/Results Medications: Active Medications Generic Name Dose Route Start Last Admin Trade Name Freq PRN Reason Stop Dose Admin Albuterol/Ipratropium 3 ml 10/31/24 22:31 10/31/24 22:59 Ipratropium 0.5 Mg/Albuterol Sulfate 2.5 Mg Ampul.Neb 3 Ml INHALATION 3 ml Q6HRT PRN Administration Shortness Of Breath Or Wheezing Bupropion HCl 150 mg 11/01/24 09:00 11/02/24 09:54 Bupropion Hcl Xl (24 Hr) 150 Mg Tabcr PO 150 mg QAM TERRY Administration Cyclobenzaprine HCl 5 mg 10/31/24 22:38 11/01/24 18:03 Cyclobenzaprine Hcl 5 Mg Tablet PO 5 mg TID PRN Administration muscle spasm Empagliflozin 10 mg 11/01/24 09:00 11/02/24 09:54 Empagliflozin 10 Mg Tablet PO 10 mg DAILY TERRY Administration Heparin Sodium (Porcine) 7,000 units 11/02/24 14:42 Heparin Sodium 5,000 Units/Ml Vial IV PUSH PRN PRN aPTT less than 55 seconds Heparin Sodium (Porcine) 3,500 units 11/02/24 14:42 Heparin Sodium 5,000 Units/Ml Vial IV PUSH PRN PRN aPTT 55 - 70 seconds Heparin Sodium/Dextrose 25,000 units in 250 mls @ 15 mls/hr 11/02/24 14:45 11/02/24 16:01 Heparin Sodium/D5w 100 Units/Ml IV CONT 1,500 unit/hr .[id number] TERRY 15 mls/hr Administration Protocol 1,500 UNIT/HR Oxycodone/Acetaminophen 1 tab 10/31/24 22:31 11/01/24 18:02 Oxycodone/Acetaminophen (*Crx) 10-325 Mg Tablet PO 1 tab TID PRN Administration pain 7-10 Paroxetine HCl 40 mg 11/01/24 09:00 11/02/24 09:54 Paroxetine 20 Mg Tablet PO 40 mg QAM TERRY Administration Paroxetine HCl 10 mg 11/01/24 09:00 11/02/24 09:55 Paroxetine 10 Mg Tablet PO 10 mg QAM TERRY Administration Perflutren Lipid Microsphere 0 ml 10/31/24 22:41 Perflutren Lipid Microspheres 1.5 Ml Vial Diluted To 10 Ml Total Volume IV PUSH 11/03/24 22:41 ONCE PRN adequate visualization Protocol Sacubitril/Valsartan 1 tablet 10/31/24 22:50 11/02/24 09:54 Sacubitril/Valsartan 49-51 Mg Tablet PO 1 tablet Q12HR TERRY Administration Sodium Chloride 1 gm 11/01/24 09:00 11/02/24 09:54 Sodium Chloride 1 Gm Tablet PO 1 gm DAILY TERRY Administration Spironolactone 25 mg 11/01/24 09:00 11/02/24 09:54 Spironolactone 25 Mg Tablet PO 25 mg DAILY [facility] Administration Warfarin Sodium 2 mg/ Warfarin 7 mg 11/01/24 17:00 11/01/24 17:52 Sodium 5 mg PO Not Given DAILY@1700 [facility] Radiology Results: ITS Impressions Chest X-Ray 10/31/24 18:19 IMPRESSION: Large left-sided pleural effusion without focal infiltrate. Chest CT 10/31/24 19:17 IMPRESSION: Large left-sided pleural effusion with adjacent compressive atelectasis, unchanged from plain film evaluation performed approximately 90 minutes earlier Labs Labs: Laboratory Results - last 24 hr 11/01/24 11/02/24 11/02/24 18:24 04:51 14:54 WBC 10.5 H 8.7 10.8 H RBC 3.16 L 3.07 L 3.10 L Hgb 9.4 L 9.2 L 9.2 L Hct 30.6 L 29.5 L 29.6 L MCV 96.8 96.1 95.5 MCH 29.7 30.0 29.7 MCHC 30.7 L 31.2 L 31.1 L RDW 16.1 H 16.3 H 16.6 H Plt Count 395 H 358 400 H MPV 9.3 9.3 8.9 Immature Gran % (Auto) 1.0 H 0.7 H 0.6 H Neut % (Auto) 73.9 H 71.3 81.9 H Lymph % (Auto) 10.6 L 11.6 L 6.4 L [place] % (Auto) 12.7 H 12.5 H 9.7 H Eos % (Auto) 1.2 3.1 0.9 Baso % (Auto) 0.6 0.8 0.5 Lymph # (Auto) 1.11 1.01 0.69 L [place] # (Auto) 1.3 H 1.1 H 1.0 H Eos # (Auto) 0.1 0.3 0.1 Baso # (Auto) 0.1 0.1 0.1 Abs Immat Gran (auto) 0.10 H 0.06 H 0.06 H Absolute Neuts (auto) 7.8 H 6.2 8.8 H Absolute Nucleated RBC 0.000 0.000 0.000 Nucleated RBC % 0.0 0.0 0.0 PT 31.0 H D 35.7 H 37.7 H INR 2.9 3.5 3.7 APTT 67.4 H 29.9 Sodium 131 L Potassium 3.6 Chloride 96 L Carbon Dioxide 27 Anion Gap 8 BUN 15 D Creatinine 0.92 Estim Creat Clear Calc 83 Estimated GFR > 60 Glucose 126 H Calcium 8.5 Magnesium 2.0 Total Bilirubin 1.0 AST 46 ALT 33 Alkaline Phosphatase 75 Total Protein 7.0 Albumin 3.9
--- NOTE | 2024-11-02 18:18 | P.CONONC_ITS ---
Assessment and Plan Assessment and plan (1) Anemia: Code(s): D64.9 - Anemia, unspecified Status: Acute Plan Patient is a pleasant 64-year-old male came into the hospital with shortness of breath, dyspnea on exertion and hematuria. Patient was on warfarin for atrial fibrillation. Warfarin was placed on hold. Hemoccult stool was positive. INR was elevated at 11.1 and PTT was 128. Patient received FFP with correction of PTT. Labs showed hemoglobin of 7.8 on admission. White cell and platelet count was slightly elevated. Iron studies came back normal. Creatinine also normal. Previous labs showed anemia with hemoglobin of 12.8 in 2019. He denies any bleeding. Colonoscopy showed internal hemorrhoids. Previous EGD done in July 2021 showed hiatal hernia and reflux esophagitis. There is a possibility of bone marrow disorder as well. Bone marrow biopsy can be performed as an outpatient. I will order soluble transferrin receptor, methylmalonic acid level, vitamin B12 level, LDH and reticulocyte count. I will check serum protein electrophoresis. He will follow-up with me in the office for further workup including bone marrow biopsy. HPI Data of Consult Date/Time: 11/02/24 18:18 Requesting Physician: Avila Boyd MD Primary Care Provider: Kevin Mac MD Consult Narrative Narrative: Aly Starr is a 64 year old male with history of GERD, esophagitis hypertension and anemia came into the hospital with complain of hematuria for 2 days duration. He was diagnosed with UTI. Hemoccult stool was positive. He denies any melena and hematochezia. Denies any weight loss. Patient has been complaining of dyspnea on exertion. Labs showed hemoglobin of 9.2 on admission. Previous labs showed hemoglobin of 12.8 in March of 2020. WBC was slightly elevated at 10.5 and platelet was [id number]. MCV 96.1. Creatinine was normal and iron studies came back normal as well. CT chest showed large left-sided pleural effusion. There was no lytic or blastic lesions. Colonoscopy was done today showed internal hemorrhoids. GI consultation was also performed. He denies any other complaint. Review of Systems 2 Review of Systems: Twelve point review of system was reviewed [facility] Past Medical History Medical History (Updated 11/02/24 @ 13:28 by Tyree Cross MD) Gross hematuria Tachycardia Leukocytosis Anemia Hyponatremia Otitis media with effusion Orthostatic hypotension Pleural effusion Wheezing on right side of chest on exhalation Ribs, multiple fractures COPD (chronic obstructive pulmonary disease) GERD (gastroesophageal reflux disease) BPH (benign prostatic hyperplasia) Lipoma of back Periumbilical hernia Chronic cough Erectile dysfunction Acute wheezy bronchitis Esophagitis Screen for colon cancer Screening for prostate cancer BMI 25.0-25.9,adult Tobacco abuse disorder Anxiety Hypertension Osteoarthritis Surgical History Surgical History Heart valve replaced Status post left partial knee replacement 1999 History of total right knee replacement 2009 Family History Family History Father , 80 years old Dementia Atrial fibrillation Mother , 72 years old CHF (congestive heart failure) Sibling Obesity Diabetes mellitus Obstructive sleep apnea Social History Social History Social History: He lives in [facility] with his of 32 years. He retired in the early spring. 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 He started smoking at 45 years of age and has smoked between 1-1.5 packs per day. He drinks 2 or 3 beers several times a week. He uses 2 or 3 marijuana joints a week. He has 1 son and 1 daughter. The patient has 2 brothers and 2 sisters. His 1 brother is obese and has diabetes and obstructive sleep apnea. His remaining siblings are relatively healthy. Primary care physician: Dr. Kevin Mac Surrogate decision maker: Tierra Morejon () Smoking packs per day: 1 Smoking cigarettes per day: 20.0 Years smoked: 20 Smoking pack-years: 20.00 Smoking status: Former smoker Tobacco type: e-cigarettes/vaping Smoking end date: 04/22/20 Additional smoking assessment comments: CURRENTLY TRYING TO QUIT Alcohol intake: current Drinks per week: 30 Substance use: current Substance use type: marijuana Other substance usage details: COUPLE TIMES A WEEK AT MOST Last use: 10/26/24 Do You Feel Safe in your Home?: Yes Lack of Transportation: No Lack of Food: Never True Current Housing: I Have Housing Concerned About Future Housing: No Difficulty Paying Gas/Electric Bills: No Difficulty Paying for Meds: No Currently Unemployed: No Education: High School Diploma/GED Difficulty w/ Childcare or Family Care: No Living arrangements: with family Occupation/Education: retired 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 #30 tabs 07/26/24 10/31/24 Rx albuterol 90 mcg-budesonide 80 2 inh inhalation ONCE #5.9 grams 08/29/24 10/31/24 Rx mcg/actuation HFA aerosol inhaler (Airsupra) cyclobenzaprine 5 mg tablet 5 mg PO TID PRN muscle spasm #30 08/29/24 10/31/24 Rx tabs sodium chloride 1,000 mg soluble 1,000 mg PO DAILY #30 tabs 08/30/24 10/31/24 Rx tablet oxycodone-acetaminophen 10 mg-325 1 tablet PO TID PRN pain #90 tabs 08/31/24 10/31/24 Rx mg tablet warfarin 10 mg tablet 10 mg PO .COMPLEX #90 tabs 09/13/24 10/31/24 Rx bupropion HCl 150 mg 24 hr tablet, 150 mg PO QAM #90 tabs 09/15/24 10/31/24 Rx extended release spironolactone 25 mg tablet 25 mg PO DAILY #90 tabs 09/17/24 10/31/24 Rx empagliflozin 10 mg tablet 10 mg PO DAILY #90 tabs 10/13/24 10/31/24 Rx (Jardiance) paroxetine HCl 40 mg tablet 50 mg PO DAILY 10/31/24 10/31/24 History Allergies Allergy/AdvReac Type Severity Reaction Status Date / Time Penicillins Allergy Unknown Rash Verified 11/02/24 12:26 Vital Signs Vital Signs - 24 hr 11/01/24 19:48 11/01/24 20:00 11/01/24 20:15 Temperature 36.5 C Pulse Rate 87 88 87 Respiratory Rate 18 18 Blood Pressure 131/88 Pulse Oximetry 95 95 Oxygen Delivery Room Air Fraction of Inspired Oxygen 11/01/24 21:23 11/01/24 22:00 11/01/24 23:29 Temperature 36.5 C Pulse Rate 81 85 86 Respiratory Rate 20 20 Blood Pressure 121/73 Pulse Oximetry 97 98 Oxygen Delivery Room Air Fraction of Inspired Oxygen 21 11/02/24 00:00 11/02/24 02:00 11/02/24 03:40 Temperature 36.7 C Pulse Rate 83 89 94 Respiratory Rate 18 Blood Pressure 118/81 Pulse Oximetry 96 Oxygen Delivery Fraction of Inspired Oxygen 11/02/24 04:00 11/02/24 06:00 11/02/24 07:54 Temperature 36.7 C Pulse Rate 84 86 93 Respiratory Rate 20 Blood Pressure 121/77 Pulse Oximetry 97 Oxygen Delivery Fraction of Inspired Oxygen 11/02/24 08:00 11/02/24 08:00 11/02/24 10:00 Temperature Pulse Rate 73 95 Respiratory Rate Blood Pressure Pulse Oximetry Oxygen Delivery Room Air Fraction of Inspired Oxygen 11/02/24 11:47 11/02/24 12:00 11/02/24 12:34 Temperature 36.7 C 35.9 C L Pulse Rate 96 93 99 Respiratory Rate 20 22 H Blood Pressure 113/77 129/78 Pulse Oximetry 97 96 Oxygen Delivery Room Air Fraction of Inspired Oxygen 11/02/24 13:26 11/02/24 13:36 11/02/24 13:45 Temperature Pulse Rate 85 87 81 Respiratory Rate 22 H 22 H 22 H Blood Pressure 91/64 L 92/66 L 110/71 Pulse Oximetry 91 91 91 Oxygen Delivery Room Air Room Air Room Air Fraction of Inspired Oxygen 11/02/24 14:00 11/02/24 15:53 11/02/24 16:00 Temperature 37.0 C Pulse Rate 98 95 106 H Respiratory Rate 18 Blood Pressure 98/53 L Pulse Oximetry 96 Oxygen Delivery Fraction of Inspired Oxygen 11/02/24 16:00 11/02/24 18:00 Temperature Pulse Rate 102 H Respiratory Rate Blood Pressure Pulse Oximetry Oxygen Delivery Room Air Fraction of Inspired Oxygen Exam 2 Narrative: Lungs are clear to auscultation bilaterally Cardiovascular regular rate rhythm no murmurs Abdomen soft nontender nondistended Extremities no edema Results Labs 11/02/24 14:54 11/02/24 04:51 Labs: Short CBC 11/01/24 11/02/24 11/02/24 Range/Units 18:24 04:51 14:54 WBC 10.5 H 8.7 10.8 H (4.5-10.0) K/mm3 Hgb 9.4 L 9.2 L 9.2 L (14.0-18.0) g/dL Hct 30.6 L 29.5 L 29.6 L (42.0-52.0) % Plt Count 395 H 358 400 H (150-375) k/mm3 BMP 11/02/24 04:51 Sodium 131 L Potassium 3.6 Chloride 96 L Carbon Dioxide 27 BUN 15 D Creatinine 0.92 Glucose 126 H Calcium 8.5 Liver Function 11/02/24 Range/Units 04:51 Total Bilirubin 1.0 (0.2-1.3) mg/dL AST 46 (17-59) U/L ALT 33 (6-50) U/L Alkaline Phosphatase 75 (38-126) U/L Albumin 3.9 (3.5-5.1) g/dL
[2024-11-02] MEDS: CYCLOBENZAPRINE HCL 5 MG TABLET PO (20:40)
[2024-11-02] MEDS: oxyCODONE/ACETAMINOPHEN (*CRX) 10-325 MG TABLET 1 TAB PO (20:40)
[2024-11-02 22:04] LABS: Immature Reticulocyte Fraction 37.5 % (3.0-15.9); Reticulocyte Hemoglobin Conten 36.2 pg (28.2-36.6); Reticulocyte Percent 3.71 % (0.7-4.3); Reticulocytes Absolute 0.11 10^6/uL (0.02-0.10)
[2024-11-02 22:14] LABS: Lactate Dehydrogenase 264 U/L (120-246)
[2024-11-02 22:29] LABS: Partial Thromboplastin Time 192.6 Seconds (22.3-36.8)
[2024-11-02 23:20] LABS: Folic Acid 9.8 ng/mL (2.76->20)
[2024-11-03] VITALS (21 sets, daily range): BP systolic 102–130; BP diastolic 65–84; PULSE 80–101; RESP 16–20; TEMP 36.3–36.9; O2SAT 94–99
[2024-11-03 01:16] LABS: INR 3.7; Prothrombin Time 37.7 Seconds (11.1-14.7)
[2024-11-03 01:17] LABS: Partial Thromboplastin Time 65.3 Seconds (22.3-36.8)
[2024-11-03] MEDS: SODIUM CHLORIDE 0.9% IV 250 ML 30 ML IV CONT (04:00)
[2024-11-03] MEDS: TUBING, BLOOD PLUM PUMP TUBING 1 EACH XX (04:37)
--- NOTE | 2024-11-03 04:40 | PC.NURSE ---
Patient's PIV in right arm infiltrated when FFP was initiated. Heparin drip held and FFP switched to other PIV. Jose Austin NP, notified. This RN attempted to obtain new PIV access but veins continued to collapse. Will resume Heparin drip once FFP has completed transfusing.
[2024-11-03] MEDS: HEPARIN SOD/D5W 100 UNITS/ML 25,000 UNITS/250 ML BAG 10 UNITS IV CONT (06:15)
[2024-11-03 07:53] LABS: Basophils Absolute Auto 0.1 K/mm3 (0.0-0.1); Basophils Percent Auto 0.6 % (0.2-1.2); Eosinophils Absolute Auto 0.3 K/mm3 (0-0.3); Eosinophils Percent Auto 4.2 % (0-4.4); Hematocrit 27.9 % (42.0-52.0); Hemoglobin 8.7 g/dL (14.0-18.0); Immature Granulocyte Absolute 0.04 K/mm3 (0.00-0.031); Immature Granulocyte Percent A 0.5 % (0-0.5); Lymphocytes Absolute Auto 1.05 K/mm3 (0.9-3.2); Lymphocytes Percent Auto 12.8 % (18.3-44.2); Mean Corpuscular HGB Conc 31.2 g/dl (32-36); Mean Corpuscular Hemoglobin 30.3 pg (26-34); Mean Corpuscular Volume 97.2 fl (80-100); Mean Platelet Volume 8.9 fl (7.4-10.4); Monocytes Percent Auto 11.6 % (2.6-8.5); Neutrophils Absolute Auto 5.8 K/mm3 (1.3-6.7); Neutrophils Percent Auto 70.3 % (45.5-73.1); Platelet Count Result 389 k/mm3 (150-375); Red Blood Count 2.87 M/mm3 (4.6-6.20); Red Cell Distribution Width 16.3 % (11.5-14.5); White Blood Count 8.2 K/mm3 (4.5-10.0)
[2024-11-03 08:07] LABS: Alanine Aminotransferase 31 U/L (6-50); Albumin Level 3.9 g/dL (3.5-5.1); Alkaline Phosphatase 74 U/L (38-126); Anion Gap 7 mmol/L (4-12); Aspartate Amino Transferase 41 U/L (17-59); Blood Urea Nitrogen 17 mg/dL (9-20); Calcium 8.5 mg/dL (8.4-10.2); Carbon Dioxide 28 mmol/L (22-30); Chloride 100 mmol/L (98-107); Estimated CRCL calculation 86 ml/min; Estimated Glomerular Filt Rate > 60; Glucose 103 mg/dL (65-110); Magnesium 2.1 mg/dL (1.6-2.3); Potassium 3.5 mmol/L (3.4-5.0); Sodium 135 mmol/L (137-145)
[2024-11-03 08:22] LABS: INR 2.5; Prothrombin Time 27.9 Seconds (11.1-14.7)
[2024-11-03 08:24] LABS: Partial Thromboplastin Time 61.7 Seconds (22.3-36.8)
[2024-11-03] MEDS: SODIUM CHLORIDE 1 GM TABLET PO (08:32)
[2024-11-03] MEDS: buPROPion HCL XL (24 HR) 150 MG TABCR PO (08:32)
[2024-11-03] MEDS: PARoxetine 20 MG TABLET 40 MG PO (08:32)
[2024-11-03] MEDS: EMPAGLIFLOZIN 10 MG TABLET PO (08:32)
[2024-11-03] MEDS: PARoxetine 10 MG TABLET PO (08:32)
[2024-11-03] MEDS: SPIRONOLACTONE 25 MG TABLET PO (08:32)
[2024-11-03] MEDS: SACUBITRIL/VALSARTAN 49-51 MG TABLET 1 TABLET PO ×2 (08:32→21:14)
[2024-11-03] MEDS: HEPARIN SODIUM 5,000 UNITS/ML VIAL 3500 UNITS IV PUSH (09:57)
--- NOTE | 2024-11-03 16:02 | P.PNIM_ITS ---
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 use long term care social worker with goal INR 2.5-3.5 -Did not use K-Centra as current bleeding is not life threatening and we don't want to overcorrect INR if at all possible -Occult positive stool and gross hematuria present -Vitamin K 10 mg oral given in ER -On admit decided to give 2 units FFP and recheck INR after transfusion -Check H&H or CBC every 4 hours and transfuse PRBCs if drops below 8 and bleeding still present -GI consult as below (2) Hematuria: Code(s): R31.9 - Hematuria, unspecified Status: Acute Assessment and Plan: -Gross hematuria noted on my exam of output -Started 2 days ago -Patient continued warfarin dosing despite hematuria -warfarin now held as above -Goal INR 2.5-3.5 due to mechanical heart valve -Consider abd/pelvis CT scan and/or consult to Urology if this continues after INR improvement (3) Atrial fibrillation with rapid ventricular response: Code(s): I48.91 - Unspecified atrial fibrillation Status: Acute Assessment and Plan: -History a-fib and tachy dysrhythmia noted at PCP office -Patient admitted to [facility] [place], may need tele if downgraded after more medically stable (4) Acute upper GI bleed: Code(s): K92.2 - Gastrointestinal hemorrhage, unspecified Status: Acute Assessment and Plan: -Hemoccult positive -History of esophagitis -Pantoprazole 80 mg IV in ER and ordered 40 mg Q12HR to start in AM -GI consulted -Patient was NPO after midnight in case GI wants to go for EGD in the morning -Will want INR improved first (5) Pleural effusion: Code(s): J90 - Pleural effusion, not elsewhere classified Status: Acute Assessment and Plan: -Large left pleural effusion present on imaging -Dyspnea on exertion worsening over past couple weeks likely combination pleural effusion and anemia -Recent broken ribs, possible for this to be partial hemothorax -Not currently requiring oxygen -Order Echocardiogram to assess heart failure status (6) Hypertension: Qualifiers: Hypertension type: essential hypertension Qualified Code(s): I10 - Essential (primary) hypertension Code(s): I10 - Essential (primary) hypertension Status: Acute Assessment and Plan: -BP on softer side -Resume home medications, hold if hypotension develops (7) Mechanical heart valve present: Code(s): Z95.2 - Presence of prosthetic heart valve Status: Acute Assessment and Plan: -See above (8) Tobacco use: Code(s): Z72.0 - Tobacco use Status: Acute Assessment and Plan: -Former smoker, current vape user -Consider nicotine patch if symptoms of withdrawal Plan patient with chronic anticoagulation with warfarin for mechanical valve with INR range of 2.5-3.5. Upon arrival patient INR was 11 with c/o hematuria, and dyspnea on exertion. patient was treated with Vitamin K 10mg PO in the ER and FFP on the floor, started on heparin drip, this morning his INR is 3.5, patient is seen by GI and recommending colonoscopy to further evaluate his anemia, patient had colonoscopy today which showed few small-size uncomplicated internal hemorrhoids were seen in the rectum, otherwise colon was remarkable, will hold warfarin for now place the on heparin drip and monitor, as patient with mechanical valve is high risk of stroke with subtherapeutic INR.patient is also found to have a large pleural effusion, patient is seen by tobacco conditioner is scheduled for thoracenteses today however his INR today is 2.5 and requires INR to be close to 1.6 for the procedure, patient is being bridged with heparin, will monitor, Subjective Date/time seen: 11/03/24 16:02 Interval history: Hematuria, dyspnea on exertion Narrative: This is a 64 year old male patient who complained of hematuria for 2 days and dyspnea on exertion for about a week. Today patient went to see primary care provider in the office regarding his symptoms. PCP thought patient may have urine infection causing hematuria. Patient became significantly tachycardic with minor activity in the office. EKG obtained and EMS called to transport patient to the ER. Patient stated he didn't want to go by EMS but was dizzy so he agreed. Patient has past history of mechanical aortic valve replacement and is on warfarin with goal INR 2.5-3.5. In ER labs noted 2 point drop in hemoglobin from last on record. Additionally, INR noted to be 11.1. Urine grossly bloody and Digital Rectal exam for hemoccult was positive but noted brown stool on finger of ER provider. No melena, BRBPR or hematemesis reported. Patient denies any nose, mouth/gum bleeding or abnormal bruising. He notes dyspnea has slowly worsened over a few weeks since injuring left ribs. Vitamin K 10 mg oral given in ER. On admit we decided to give 2 units of FFP. Repeat Hemoglobin had dropped from 9.2 to 8.5 and will be rechecked again by morning. Will transfuse RBCs if drops below 8. GI consulted for evaluation. patient with chronic anticoagulation with warfarin for mechanical valve with INR range of 2.5-3.5. Upon arrival patient INR was 11 with c/o hematuria, and dyspnea on exertion. patient was treated with Vitamin K 10mg PO in the ER and FFP on the floor, started on heparin drip, this morning his INR is 3.5, patient is seen by GI and recommending colonoscopy to further evaluate his anemia, patient had colonoscopy today which showed few small-size uncomplicated internal hemorrhoids were seen in the rectum, otherwise colon was remarkable, will hold warfarin for now place the on heparin drip and monitor, as patient with mechanical valve is high risk of stroke with subtherapeutic INR.patient is also found to have a large pleural effusion, patient is seen by tobacco conditioner is scheduled for thoracenteses today however his INR today is 2.5 and requires INR to be close to 1.6 for the procedure, patient is being bridged with heparin, will monitor, Review of Systems Review of Systems: Denies fever, chills or chest pain. All systems reviewed & are unremarkable except as noted in HPI and below Exam Narrative: Patient is comfortable, NAD HEENT: eyes are clear and none icteric LUNGS:CTA HEART: RR S1S2 ABD: BS+, Soft and nontender Lower extremities: no edema SKIN: nonjaundiced Neuro: grossly intact. Objective Data Vital Signs Vital Signs: Vital Signs - 24 hr 11/02/24 18:00 11/02/24 19:43 11/02/24 20:00 Temperature 36.8 C Pulse Rate 102 H 100 Respiratory Rate 16 Blood Pressure 116/70 Pulse Oximetry 95 95 Oxygen Delivery Room Air Fraction of Inspired Oxygen 11/02/24 20:00 11/02/24 22:00 11/02/24 23:43 Temperature 36.8 C Pulse Rate 94 88 83 Respiratory Rate 16 Blood Pressure 100/71 Pulse Oximetry 94 Oxygen Delivery Fraction of Inspired Oxygen 11/03/24 00:00 11/03/24 02:00 11/03/24 04:00 Temperature 36.4 C Pulse Rate 83 80 82 Respiratory Rate 18 Blood Pressure 102/70 Pulse Oximetry 97 Oxygen Delivery Fraction of Inspired Oxygen 11/03/24 04:00 11/03/24 04:01 11/03/24 04:10 Temperature 36.4 C Pulse Rate 82 82 82 Respiratory Rate 18 18 Blood Pressure 102/70 Pulse Oximetry 97 97 Oxygen Delivery Room Air Fraction of Inspired Oxygen 11/03/24 04:20 11/03/24 05:20 11/03/24 06:00 Temperature 36.6 C 36.5 C Pulse Rate 81 84 80 Respiratory Rate 20 19 Blood Pressure 130/84 109/72 Pulse Oximetry 99 96 Oxygen Delivery Fraction of Inspired Oxygen 11/03/24 06:15 11/03/24 08:00 11/03/24 08:07 Temperature 36.5 C 36.7 C Pulse Rate 90 82 82 Respiratory Rate 18 18 Blood Pressure 106/76 117/75 Pulse Oximetry 96 94 Oxygen Delivery Fraction of Inspired Oxygen 11/03/24 10:00 11/03/24 11:46 11/03/24 12:00 Temperature 36.3 C L Pulse Rate 80 91 87 Respiratory Rate 20 Blood Pressure 104/65 Pulse Oximetry 95 Oxygen Delivery Fraction of Inspired Oxygen 11/03/24 14:00 11/03/24 15:26 Temperature Pulse Rate 93 90 Respiratory Rate 16 Blood Pressure Pulse Oximetry 97 Oxygen Delivery Room Air Fraction of Inspired Oxygen Intake/Output Intake/Output: Intake & Output 10/31/24 11/01/24 11/02/24 11/03/24 23:59 23:59 23:59 23:59 Intake Total 2112 1011 725.4 Output Total 1970 601 800 Balance 142 410 -74.6 Meds/Results Medications: Active Medications Generic Name Dose Route Start Last Admin Trade Name Freq PRN Reason Stop Dose Admin Albuterol/Ipratropium 3 ml 10/31/24 22:31 10/31/24 22:59 Ipratropium 0.5 Mg/Albuterol Sulfate 2.5 Mg Ampul.Neb 3 Ml INHALATION 3 ml Q6HRT PRN Administration Shortness Of Breath Or Wheezing Bupropion HCl 150 mg 11/01/24 09:00 11/03/24 08:32 Bupropion Hcl Xl (24 Hr) 150 Mg Tabcr PO 150 mg QAM TERRY Administration Cyclobenzaprine HCl 5 mg 10/31/24 22:38 11/02/24 20:40 Cyclobenzaprine Hcl 5 Mg Tablet PO 5 mg TID PRN Administration muscle spasm Empagliflozin 10 mg 11/01/24 09:00 11/03/24 08:32 Empagliflozin 10 Mg Tablet PO 10 mg DAILY TERRY Administration Heparin Sodium (Porcine) 7,000 units 11/02/24 14:42 Heparin Sodium 5,000 Units/Ml Vial IV PUSH PRN PRN aPTT less than 55 seconds Heparin Sodium (Porcine) 3,500 units 11/02/24 14:42 11/03/24 09:57 Heparin Sodium 5,000 Units/Ml Vial IV PUSH 3,500 units PRN PRN Administration aPTT 55 - 70 seconds Heparin Sodium/Dextrose 25,000 units in 250 mls @ 12 mls/hr 11/03/24 06:30 11/03/24 12:00 Heparin Sodium/D5w 100 Units/Ml IV CONT 1,200 units/hr .[id number] TERRY 12 mls/hr Titration Protocol 1,200 UNITS/HR Oxycodone/Acetaminophen 1 tab 10/31/24 22:31 11/02/24 20:40 Oxycodone/Acetaminophen (*Crx) 10-325 Mg Tablet PO 1 tab TID PRN Administration pain 7-10 Paroxetine HCl 40 mg 11/01/24 09:00 11/03/24 08:32 Paroxetine 20 Mg Tablet PO 40 mg QAM TERRY Administration Paroxetine HCl 10 mg 11/01/24 09:00 11/03/24 08:32 Paroxetine 10 Mg Tablet PO 10 mg QAM TERRY Administration Perflutren Lipid Microsphere 0 ml 10/31/24 22:41 Perflutren Lipid Microspheres 1.5 Ml Vial Diluted To 10 Ml Total Volume IV PUSH 11/03/24 22:41 ONCE PRN adequate visualization Protocol Sacubitril/Valsartan 1 tablet 10/31/24 22:50 11/03/24 08:32 Sacubitril/Valsartan 49-51 Mg Tablet PO 1 tablet Q12HR TERRY Administration Sodium Chloride 1 gm 11/01/24 09:00 11/03/24 08:32 Sodium Chloride 1 Gm Tablet PO 1 gm DAILY TERRY Administration Spironolactone 25 mg 11/01/24 09:00 11/03/24 08:32 Spironolactone 25 Mg Tablet PO 25 mg DAILY TERRY Administration Warfarin Sodium 2 mg/ Warfarin 7 mg 11/01/24 17:00 11/01/24 17:52 Sodium 5 mg PO Not Given DAILY@1700 [facility] Radiology Results: ITS Impressions Chest X-Ray 10/31/24 18:19 IMPRESSION: Large left-sided pleural effusion without focal infiltrate. Chest CT 10/31/24 19:17 IMPRESSION: Large left-sided pleural effusion with adjacent compressive atelectasis, unchanged from plain film evaluation performed approximately 90 minutes earlier Labs Labs: Laboratory Results - last 24 hr 10/31/24 11/02/24 11/03/24 20:55 21:56 00:54 WBC RBC Hgb Hct MCV MCH MCHC RDW Plt Count MPV Immature Gran % (Auto) Neut % (Auto) Lymph % (Auto) Grant % (Auto) Eos % (Auto) Baso % (Auto) Lymph # (Auto) Grant # (Auto) Eos # (Auto) Baso # (Auto) Abs Immat Gran (auto) Absolute Neuts (auto) Absolute Nucleated RBC Nucleated RBC % Absolute Retic 0.11 H Percent Retic 3.71 Immature Retic Fraction 37.5 H Retic Hgb Content 36.2 PT 37.7 H INR 3.7 APTT 192.6 H* 65.3 H Sodium Potassium Chloride Carbon Dioxide Anion Gap BUN Creatinine Estim Creat Clear Calc Estimated GFR Glucose Calcium Magnesium Total Bilirubin AST ALT Alkaline Phosphatase Lactate Dehydrogenase 264 H Total Protein Albumin Vitamin B12 761.0 Folate 9.8 Blood Type O Positive Antibody Screen Negative Crossmatch See Detail 11/03/24 07:44 WBC 8.2 RBC 2.87 L Hgb 8.7 L Hct 27.9 L MCV 97.2 MCH 30.3 MCHC 31.2 L RDW 16.3 H Plt Count 389 H MPV 8.9 Immature Gran % (Auto) 0.5 Neut % (Auto) 70.3 Lymph % (Auto) 12.8 L Grant % (Auto) 11.6 H Eos % (Auto) 4.2 Baso % (Auto) 0.6 Lymph # (Auto) 1.05 Grant # (Auto) 1.0 H Eos # (Auto) 0.3 Baso # (Auto) 0.1 Abs Immat Gran (auto) 0.04 H Absolute Neuts (auto) 5.8 Absolute Nucleated RBC 0.000 Nucleated RBC % 0.0 Absolute Retic Percent Retic Immature Retic Fraction Retic Hgb Content PT 27.9 H D INR 2.5 APTT 61.7 H Sodium 135 L Potassium 3.5 Chloride 100 Carbon Dioxide 28 Anion Gap 7 BUN 17 Creatinine 0.88 Estim Creat Clear Calc 86 Estimated GFR > 60 Glucose 103 Calcium 8.5 Magnesium 2.1 Total Bilirubin 1.0 AST 41 ALT 31 Alkaline Phosphatase 74 Lactate Dehydrogenase Total Protein 7.0 Albumin 3.9 Vitamin B12 Folate Blood Type Antibody Screen Crossmatch
[2024-11-03 16:38] LABS: Partial Thromboplastin Time 67.6 Seconds (22.3-36.8)
[2024-11-03] MEDS: HEPARIN SOD/D5W 100 UNITS/ML 25,000 UNITS/250 ML BAG 14 UNITS IV CONT (17:25)
[2024-11-03] MEDS: CYCLOBENZAPRINE HCL 5 MG TABLET PO (21:12)
[2024-11-03] MEDS: oxyCODONE/ACETAMINOPHEN (*CRX) 10-325 MG TABLET 1 TAB PO (21:12)
[2024-11-03 23:44] LABS: Partial Thromboplastin Time 158.5 Seconds (22.3-36.8)
[2024-11-04] VITALS (22 sets, daily range): BP systolic 92–125; BP diastolic 56–82; PULSE 65–107; RESP 16–20; TEMP 36.6–37.2; O2SAT 94–100
[2024-11-04 05:23] LABS: Protein, Total 6.7 g/dL (6.1-8.1)
[2024-11-04 08:08] LABS: Basophils Absolute Auto 0.1 K/mm3 (0.0-0.1); Basophils Percent Auto 0.7 % (0.2-1.2); Eosinophils Absolute Auto 0.4 K/mm3 (0-0.3); Eosinophils Percent Auto 5.2 % (0-4.4); Hematocrit 28.5 % (42.0-52.0); Hemoglobin 8.9 g/dL (14.0-18.0); Immature Granulocyte Absolute 0.06 K/mm3 (0.00-0.031); Immature Granulocyte Percent A 0.7 % (0-0.5); Lymphocytes Absolute Auto 0.93 K/mm3 (0.9-3.2); Lymphocytes Percent Auto 11.1 % (18.3-44.2); Mean Corpuscular HGB Conc 31.2 g/dl (32-36); Mean Corpuscular Hemoglobin 30.5 pg (26-34); Mean Corpuscular Volume 97.6 fl (80-100); Mean Platelet Volume 8.6 fl (7.4-10.4); Monocytes Absolute Auto 0.8 K/mm3 (0.1-0.6); Monocytes Percent Auto 9.3 % (2.6-8.5); Neutrophils Absolute Auto 6.1 K/mm3 (1.3-6.7); Platelet Count Result 362 k/mm3 (150-375); Red Blood Count 2.92 M/mm3 (4.6-6.20); Red Cell Distribution Width 16.8 % (11.5-14.5); White Blood Count 8.4 K/mm3 (4.5-10.0)
[2024-11-04 08:17] LABS: Alanine Aminotransferase 32 U/L (6-50); Albumin Level 3.7 g/dL (3.5-5.1); Alkaline Phosphatase 66 U/L (38-126); Anion Gap 7 mmol/L (4-12); Aspartate Amino Transferase 37 U/L (17-59); Blood Urea Nitrogen 15 mg/dL (9-20); Calcium 8.6 mg/dL (8.4-10.2); Carbon Dioxide 27 mmol/L (22-30); Chloride 103 mmol/L (98-107); Estimated CRCL calculation 82 ml/min; Estimated Glomerular Filt Rate > 60; Glucose 143 mg/dL (65-110); Potassium 3.4 mmol/L (3.4-5.0); Sodium 137 mmol/L (137-145)
[2024-11-04 08:23] LABS: INR 1.9; Prothrombin Time 22.1 Seconds (11.1-14.7)
[2024-11-04 08:24] LABS: Partial Thromboplastin Time 65.9 Seconds (22.3-36.8)
[2024-11-04] MEDS: PARoxetine 10 MG TABLET PO (10:11)
[2024-11-04] MEDS: PARoxetine 20 MG TABLET 40 MG PO (10:11)
[2024-11-04] MEDS: SPIRONOLACTONE 25 MG TABLET PO (10:12)
[2024-11-04] MEDS: EMPAGLIFLOZIN 10 MG TABLET PO (10:12)
[2024-11-04] MEDS: SACUBITRIL/VALSARTAN 49-51 MG TABLET 1 TABLET PO ×2 (10:12→21:30)
[2024-11-04] MEDS: buPROPion HCL XL (24 HR) 150 MG TABCR PO (10:12)
[2024-11-04] MEDS: SODIUM CHLORIDE 1 GM TABLET PO (10:12)
[2024-11-04] MEDS: SODIUM CHLORIDE 0.9% IV 250 ML 30 ML IV CONT (10:12)
[2024-11-04] MEDS: TUBING, BLOOD PLUM PUMP TUBING 1 EACH XX (10:35)
[2024-11-04 12:20] LABS: INR 1.7; Prothrombin Time 20.2 Seconds (11.1-14.7)
[2024-11-04 15:18] LABS: Partial Thromboplastin Time 53.7 Seconds (22.3-36.8)
--- NOTE | 2024-11-04 15:21 | PM.IMPN ---
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 use [employer] customer [employer] with goal INR 2.5-3.5 -Did not use K-Centra as current bleeding is not life threatening and we don't want to overcorrect INR if at all possible -Occult positive stool and gross hematuria present -Vitamin K 10 mg oral given in ER -On admit decided to give 2 units FFP and recheck INR after transfusion -Check H&H or CBC every 4 hours and transfuse PRBCs if drops below 8 and bleeding still present -GI consult as below (2) Hematuria: Code(s): R31.9 - Hematuria, unspecified Status: Acute Assessment and Plan: -Gross hematuria noted on my exam of output -Started 2 days ago -Patient continued warfarin dosing despite hematuria -warfarin now held as above -Goal INR 2.5-3.5 due to mechanical heart valve -Consider abd/pelvis CT scan and/or consult to Urology if this continues after INR improvement (3) Atrial fibrillation with rapid ventricular response: Code(s): I48.91 - Unspecified atrial fibrillation Status: Acute Assessment and Plan: -History a-fib and tachy dysrhythmia noted at PCP office -[place] [facility] may need tele if downgraded after more medically stable (4) Acute upper GI bleed: Code(s): K92.2 - Gastrointestinal hemorrhage, unspecified Status: Acute Assessment and Plan: -Hemoccult positive -History of esophagitis -Pantoprazole 80 mg IV in ER and ordered 40 mg Q12HR to start in AM -GI consulted -Patient was NPO after midnight in case GI wants to go for EGD in the morning -Will want INR improved first (5) Pleural effusion: Code(s): J90 - Pleural effusion, not elsewhere classified Status: Acute Assessment and Plan: -Large left pleural effusion present on imaging -Dyspnea on exertion worsening over past couple weeks likely combination pleural effusion and anemia -Recent broken ribs, possible for this to be partial hemothorax -Not currently requiring oxygen -Order Echocardiogram to assess heart failure status (6) Hypertension: Qualifiers: Hypertension type: essential hypertension Qualified Code(s): I10 - Essential (primary) hypertension Code(s): I10 - Essential (primary) hypertension Status: Acute Assessment and Plan: -BP on softer side -Resume home medications, hold if hypotension develops (7) Mechanical heart valve present: Code(s): Z95.2 - Presence of prosthetic heart valve Status: Acute Assessment and Plan: -See above (8) Tobacco use: Code(s): Z72.0 - Tobacco use Status: Acute Assessment and Plan: -Former smoker, current vape user -Consider nicotine patch if symptoms of withdrawal Plan patient with chronic anticoagulation with warfarin for mechanical valve with INR range of 2.5-3.5. Upon arrival patient INR was 11 with c/o hematuria, and dyspnea on exertion. patient was treated with Vitamin K 10mg PO in the ER and FFP on the floor, started on heparin drip, this morning his INR is 3.5, patient is seen by GI and recommending colonoscopy to further evaluate his anemia, patient had colonoscopy today which showed few small-size uncomplicated internal hemorrhoids were seen in the rectum, otherwise colon was remarkable, will hold warfarin for now place the on heparin drip and monitor, as patient with mechanical valve is high risk of stroke with subtherapeutic INR.patient is also found to have a large pleural effusion, patient was seen by general manager was scheduled for thoracenteses on 11/03 however his INR was 2.5 and requires INR to be close to 1.6 for the procedure, patient is being bridged with heparin, today patient INR is 1.9 will monitor, will add furosemide 40mg IV qd and diuresed the patient. Subjective Date/time seen: 11/04/24 15:21 Interval history: Hematuria, dyspnea on exertion Narrative: This is a 64 year old male patient who complained of hematuria for 2 days and dyspnea on exertion for about a week. Today patient went to see primary care provider in the office regarding his symptoms. PCP thought patient may have urine infection causing hematuria. Patient became significantly tachycardic with minor activity in the office. EKG obtained and EMS called to transport patient to the ER. Patient stated he didn't want to go by EMS but was dizzy so he agreed. Patient has past history of mechanical aortic valve replacement and is on warfarin with goal INR 2.5-3.5. In ER labs noted 2 point drop in hemoglobin from last on record. Additionally, INR noted to be 11.1. Urine grossly bloody and Digital Rectal exam for hemoccult was positive but noted brown stool on finger of ER provider. No melena, BRBPR or hematemesis reported. Patient denies any nose, mouth/gum bleeding or abnormal bruising. He notes dyspnea has slowly worsened over a few weeks since injuring left ribs. Vitamin K 10 mg oral given in ER. On admit we decided to give 2 units of FFP. Repeat Hemoglobin had dropped from 9.2 to 8.5 and will be rechecked again by morning. Will transfuse RBCs if drops below 8. GI consulted for evaluation. patient with chronic anticoagulation with warfarin for mechanical valve with INR range of 2.5-3.5. Upon arrival patient INR was 11 with c/o hematuria, and dyspnea on exertion. patient was treated with Vitamin K 10mg PO in the ER and FFP on the floor, started on heparin drip, this morning his INR is 3.5, patient is seen by GI and recommending colonoscopy to further evaluate his anemia, patient had colonoscopy today which showed few small-size uncomplicated internal hemorrhoids were seen in the rectum, otherwise colon was remarkable, will hold warfarin for now place the on heparin drip and monitor, as patient with mechanical valve is high risk of stroke with subtherapeutic INR.patient is also found to have a large pleural effusion, patient was seen by general manager was scheduled for thoracenteses on 11/03 however his INR was 2.5 and requires INR to be close to 1.6 for the procedure, patient is being bridged with heparin, today patient INR is 1.9 will monitor, will add furosemide 40mg IV qd and diuresed the patient. Review of Systems Review of Systems: Denies fever, chills or chest pain. All systems reviewed & are unremarkable except as noted in HPI and below Exam Narrative: Patient is comfortable, NAD HEENT: eyes are clear and none icteric LUNGS:CTA HEART: RR S1S2 ABD: BS+, Soft and nontender Lower extremities: no edema SKIN: nonjaundiced Neuro: grossly intact. Objective Data Vital Signs Vital Signs: Vital Signs - 24 hr 11/03/24 15:26 11/03/24 16:00 11/03/24 16:07 Temperature 36.9 C Pulse Rate 90 93 94 Respiratory Rate 16 18 Blood Pressure 121/77 Pulse Oximetry 97 97 Oxygen Delivery Room Air Fraction of Inspired Oxygen 11/03/24 18:00 11/03/24 20:00 11/03/24 20:00 Temperature 36.7 C Pulse Rate 101 H 100 98 Respiratory Rate 18 Blood Pressure 125/69 Pulse Oximetry 95 Oxygen Delivery Fraction of Inspired Oxygen 11/03/24 22:00 11/04/24 00:00 11/04/24 00:00 Temperature 36.7 C Pulse Rate 86 65 85 Respiratory Rate 17 Blood Pressure 116/59 L Pulse Oximetry 97 Oxygen Delivery Fraction of Inspired Oxygen 11/04/24 02:00 11/04/24 04:00 11/04/24 04:00 Temperature 36.6 C Pulse Rate 80 87 107 H Respiratory Rate 16 Blood Pressure 113/80 Pulse Oximetry 97 Oxygen Delivery Fraction of Inspired Oxygen 11/04/24 06:00 11/04/24 08:00 11/04/24 08:07 Temperature 36.7 C Pulse Rate 92 96 96 Respiratory Rate 20 20 Blood Pressure 122/81 Pulse Oximetry 97 97 Oxygen Delivery Room Air Fraction of Inspired Oxygen 21 11/04/24 10:19 11/04/24 10:37 11/04/24 11:37 Temperature 37.2 C 36.8 C 36.7 C Pulse Rate 82 81 87 Respiratory Rate 20 20 18 Blood Pressure 116/74 92/56 L 125/78 Pulse Oximetry 100 100 97 Oxygen Delivery Fraction of Inspired Oxygen 11/04/24 11:40 11/04/24 12:00 Temperature 36.7 C Pulse Rate 87 96 Respiratory Rate 18 20 Blood Pressure 125/78 Pulse Oximetry 97 97 Oxygen Delivery Room Air Fraction of Inspired Oxygen 21 Intake/Output Intake/Output: Intake & Output 11/01/24 11/02/24 11/03/24 11/04/24 23:59 23:59 23:59 23:59 Intake Total 2112 1011 1677.8 1342.4 Output Total 6452 312 9312 300 Balance 142 410 577.8 1042.4 Meds/Results Medications: Active Medications Generic Name Dose Route Start Last Admin Trade Name Freq PRN Reason Stop Dose Admin Albuterol/Ipratropium 3 ml 10/31/24 22:31 10/31/24 22:59 Ipratropium 0.5 Mg/Albuterol Sulfate 2.5 Mg Ampul.Neb 3 Ml INHALATION 3 ml Q6HRT PRN Administration Shortness Of Breath Or Wheezing Bupropion HCl 150 mg 11/01/24 09:00 11/04/24 10:12 Bupropion Hcl Xl (24 Hr) 150 Mg Tabcr PO 150 mg QAM TERRY Administration Cyclobenzaprine HCl 5 mg 10/31/24 22:38 11/03/24 21:12 Cyclobenzaprine Hcl 5 Mg Tablet PO 5 mg TID PRN Administration muscle spasm Empagliflozin 10 mg 11/01/24 09:00 11/04/24 10:12 Empagliflozin 10 Mg Tablet PO 10 mg DAILY TERRY Administration Heparin Sodium (Porcine) 7,000 units 11/02/24 14:42 Heparin Sodium 5,000 Units/Ml Vial IV PUSH PRN PRN aPTT less than 55 seconds Heparin Sodium (Porcine) 3,500 units 11/02/24 14:42 11/03/24 09:57 Heparin Sodium 5,000 Units/Ml Vial IV PUSH 3,500 units PRN PRN Administration aPTT 55 - 70 seconds Heparin Sodium/Dextrose 25,000 units in 250 mls @ 11 mls/hr 11/03/24 06:30 11/04/24 02:14 Heparin Sodium/D5w 100 Units/Ml IV CONT 1,100 units/hr .[id number] TERRY 11 mls/hr Titration Protocol 1,100 UNITS/HR Sodium Chloride 250 mls @ 30 mls/hr 11/04/24 08:50 11/04/24 10:12 Normal Saline Iv IV CONT 11/04/24 17:09 30 mls/hr .[id number] STA Administration Oxycodone/Acetaminophen 1 tab 10/31/24 22:31 11/03/24 21:12 Oxycodone/Acetaminophen (*Crx) 10-325 Mg Tablet PO 1 tab TID PRN Administration pain 7-10 Paroxetine HCl 40 mg 11/01/24 09:00 11/04/24 10:11 Paroxetine 20 Mg Tablet PO 40 mg QAM TERRY Administration Paroxetine HCl 10 mg 11/01/24 09:00 11/04/24 10:11 Paroxetine 10 Mg Tablet PO 10 mg QAM TERRY Administration Sacubitril/Valsartan 1 tablet 10/31/24 22:50 11/04/24 10:12 Sacubitril/Valsartan 49-51 Mg Tablet PO 1 tablet Q12HR TERRY Administration Sodium Chloride 1 gm 11/01/24 09:00 11/04/24 10:12 Sodium Chloride 1 Gm Tablet PO 1 gm DAILY [facility] Administration Spironolactone 25 mg 11/01/24 09:00 11/04/24 10:12 Spironolactone 25 Mg Tablet PO 25 mg DAILY [facility] Administration Warfarin Sodium 2 mg/ Warfarin 7 mg 11/01/24 17:00 11/01/24 17:52 Sodium 5 mg PO Not Given DAILY@1700 [facility] Radiology Results: ITS Impressions Chest X-Ray 10/31/24 18:19 IMPRESSION: Large left-sided pleural effusion without focal infiltrate. Chest CT 10/31/24 19:17 IMPRESSION: Large left-sided pleural effusion with adjacent compressive atelectasis, unchanged from plain film evaluation performed approximately 90 minutes earlier Labs Labs: Laboratory Results - last 24 hr 11/02/24 11/03/24 11/03/24 21:56 15:58 23:03 WBC RBC Hgb Hct MCV MCH MCHC RDW Plt Count MPV Immature Gran % (Auto) Neut % (Auto) Lymph % (Auto) [place] % (Auto) Eos % (Auto) Baso % (Auto) Lymph # (Auto) [place] # (Auto) Eos # (Auto) Baso # (Auto) Abs Immat Gran (auto) Absolute Neuts (auto) Absolute Nucleated RBC Nucleated RBC % PT INR APTT 67.6 H 158.5 H Sodium Potassium Chloride Carbon Dioxide Anion Gap BUN Creatinine Estim Creat Clear Calc Estimated GFR Glucose Calcium Magnesium Total Bilirubin AST ALT Alkaline Phosphatase Total Protein 6.7 Albumin Blood Type 11/04/24 11/04/24 11/04/24 08:02 09:05 11:58 WBC 8.4 RBC 2.92 L Hgb 8.9 L Hct 28.5 L MCV 97.6 MCH 30.5 MCHC 31.2 L RDW 16.8 H Plt Count 362 MPV 8.6 Immature Gran % (Auto) 0.7 H Neut % (Auto) 73.0 Lymph % (Auto) 11.1 L [place] % (Auto) 9.3 H Eos % (Auto) 5.2 H Baso % (Auto) 0.7 Lymph # (Auto) 0.93 [place] # (Auto) 0.8 H Eos # (Auto) 0.4 H Baso # (Auto) 0.1 Abs Immat Gran (auto) 0.06 H Absolute Neuts (auto) 6.1 Absolute Nucleated RBC 0.000 Nucleated RBC % 0.0 PT 22.1 H D 20.2 H INR 1.9 1.7 APTT 65.9 H Sodium 137 Potassium 3.4 Chloride 103 Carbon Dioxide 27 Anion Gap 7 BUN 15 Creatinine 0.93 Estim Creat Clear Calc 82 Estimated GFR > 60 Glucose 143 H Calcium 8.6 Magnesium 2.0 Total Bilirubin 1.0 AST 37 ALT 32 Alkaline Phosphatase 66 Total Protein 7.0 Albumin 3.7 Blood Type O Positive 11/04/24 15:03 WBC RBC Hgb Hct MCV MCH MCHC RDW Plt Count MPV Immature Gran % (Auto) Neut % (Auto) Lymph % (Auto) [place] % (Auto) Eos % (Auto) Baso % (Auto) Lymph # (Auto) [place] # (Auto) Eos # (Auto) Baso # (Auto) Abs Immat Gran (auto) Absolute Neuts (auto) Absolute Nucleated RBC Nucleated RBC % PT INR APTT 53.7 H Sodium Potassium Chloride Carbon Dioxide Anion Gap BUN Creatinine Estim Creat Clear Calc Estimated GFR Glucose Calcium Magnesium Total Bilirubin AST ALT Alkaline Phosphatase Total Protein Albumin Blood Type
[2024-11-04] MEDS: HEPARIN SOD/D5W 100 UNITS/ML 25,000 UNITS/250 ML BAG 15 UNITS IV CONT (15:53)
[2024-11-04] MEDS: HEPARIN SODIUM 5,000 UNITS/ML VIAL 7000 UNITS IV PUSH (15:57)
[2024-11-04] MEDS: FUROSEMIDE INJ 40 MG/4 ML VIAL IV PUSH (15:57)
[2024-11-04] MEDS: POTASSIUM CHLORIDE 20 MEQ ER TABLET PO (18:27)
[2024-11-04] MEDS: CYCLOBENZAPRINE HCL 5 MG TABLET PO (21:30)
[2024-11-04] MEDS: oxyCODONE/ACETAMINOPHEN (*CRX) 10-325 MG TABLET 1 TAB PO (21:34)
[2024-11-04 22:11] LABS: Partial Thromboplastin Time 149.4 Seconds (22.3-36.8)
[2024-11-05] VITALS (15 sets, daily range): BP systolic 101–130; BP diastolic 63–84; PULSE 73–98; RESP 16–20; TEMP 36.5–37; O2SAT 96–99
[2024-11-05 05:37] LABS: Basophils Absolute Auto 0.1 K/mm3 (0.0-0.1); Basophils Percent Auto 0.8 % (0.2-1.2); Eosinophils Absolute Auto 0.5 K/mm3 (0-0.3); Hematocrit 29.2 % (42.0-52.0); Hemoglobin 9.1 g/dL (14.0-18.0); Immature Granulocyte Absolute 0.07 K/mm3 (0.00-0.031); Immature Granulocyte Percent A 0.8 % (0-0.5); Lymphocytes Absolute Auto 1.52 K/mm3 (0.9-3.2); Lymphocytes Percent Auto 18.3 % (18.3-44.2); Mean Corpuscular HGB Conc 31.2 g/dl (32-36); Mean Corpuscular Hemoglobin 30.7 pg (26-34); Mean Corpuscular Volume 98.6 fl (80-100); Mean Platelet Volume 8.9 fl (7.4-10.4); Monocytes Percent Auto 11.9 % (2.6-8.5); Neutrophils Absolute Auto 5.1 K/mm3 (1.3-6.7); Neutrophils Percent Auto 62.2 % (45.5-73.1); Platelet Count Result 382 k/mm3 (150-375); Red Blood Count 2.96 M/mm3 (4.6-6.20); Red Cell Distribution Width 17.1 % (11.5-14.5); White Blood Count 8.3 K/mm3 (4.5-10.0)
[2024-11-05 05:50] LABS: Alanine Aminotransferase 25 U/L (6-50); Albumin Level 3.7 g/dL (3.5-5.1); Alkaline Phosphatase 73 U/L (38-126); Anion Gap 5 mmol/L (4-12); Aspartate Amino Transferase 32 U/L (17-59); Blood Urea Nitrogen 17 mg/dL (9-20); Calcium 8.7 mg/dL (8.4-10.2); Carbon Dioxide 28 mmol/L (22-30); Chloride 103 mmol/L (98-107); Estimated CRCL calculation 78 ml/min; Estimated Glomerular Filt Rate > 60; Glucose 99 mg/dL (65-110); Potassium 3.8 mmol/L (3.4-5.0); Sodium 136 mmol/L (137-145)
[2024-11-05 06:04] LABS: INR 1.5; Prothrombin Time 18.4 Seconds (11.1-14.7)
[2024-11-05 06:05] LABS: Partial Thromboplastin Time 53.4 Seconds (22.3-36.8)
[2024-11-05] MEDS: HEPARIN SODIUM 5,000 UNITS/ML VIAL 7000 UNITS IV PUSH ×2 (06:56→20:20)
[2024-11-05] MEDS: SODIUM CHLORIDE 1 GM TABLET PO (08:43)
[2024-11-05] MEDS: SPIRONOLACTONE 25 MG TABLET PO (08:43)
[2024-11-05] MEDS: SACUBITRIL/VALSARTAN 49-51 MG TABLET 1 TABLET PO ×2 (08:43→20:20)
[2024-11-05] MEDS: EMPAGLIFLOZIN 10 MG TABLET PO (08:44)
[2024-11-05] MEDS: FUROSEMIDE INJ 40 MG/4 ML VIAL IV PUSH (08:44)
[2024-11-05] MEDS: PARoxetine 10 MG TABLET PO (08:44)
[2024-11-05] MEDS: PARoxetine 20 MG TABLET 40 MG PO (08:44)
[2024-11-05] MEDS: buPROPion HCL XL (24 HR) 150 MG TABCR PO (08:44)
[2024-11-05] MEDS: HEPARIN SOD/D5W 100 UNITS/ML 25,000 UNITS/250 ML BAG 16 UNITS IV CONT (12:16)
[2024-11-05 13:13] LABS: Partial Thromboplastin Time 125.1 Seconds (22.3-36.8)
--- NOTE | 2024-11-05 15:08 | PC.NURSE ---
This patient, Aly Starr, was transferred to [facility] on 11/05/24 at 1458. Personal belongings sent with patient. Report given to Marta BECK. Appropriate documentation sent with patient.
--- NOTE | 2024-11-05 15:18 | P.PNIM_ITS ---
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 with goal INR 2.5-3.5 -Did not use K-Centra as current bleeding is not life threatening and we don't want to overcorrect INR if at all possible -Occult positive stool and gross hematuria present -Vitamin K 10 mg oral given in ER -On admit decided to give 2 units FFP and recheck INR after transfusion -Check H&H or CBC every 4 hours and transfuse PRBCs if drops below 8 and bleeding still present -GI consult as below (2) Hematuria: Code(s): R31.9 - Hematuria, unspecified Status: Acute Assessment and Plan: -Gross hematuria noted on my exam of output -Started 2 days ago -Patient continued warfarin dosing despite hematuria -warfarin now held as above -Goal INR 2.5-3.5 due to mechanical heart valve -Consider abd/pelvis CT scan and/or consult to Urology if this continues after INR improvement (3) Atrial fibrillation with rapid ventricular response: Code(s): I48.91 - Unspecified atrial fibrillation Status: Acute Assessment and Plan: -History a-fib and tachy dysrhythmia noted at PCP office -Patient admitted to [facility] [place] [facility] [place], may need tele if downgraded after more medically stable (4) Acute upper GI bleed: Code(s): K92.2 - Gastrointestinal hemorrhage, unspecified Status: Acute Assessment and Plan: -Hemoccult positive -History of esophagitis -Pantoprazole 80 mg IV in ER and ordered 40 mg Q12HR to start in AM -GI consulted -Patient was NPO after midnight in case GI wants to go for EGD in the morning -Will want INR improved first (5) Pleural effusion: Code(s): J90 - Pleural effusion, not elsewhere classified Status: Acute Assessment and Plan: -Large left pleural effusion present on imaging -Dyspnea on exertion worsening over past couple weeks likely combination pleural effusion and anemia -Recent broken ribs, possible for this to be partial hemothorax -Not currently requiring oxygen -Order Echocardiogram to assess heart failure status (6) Hypertension: Qualifiers: Hypertension type: essential hypertension Qualified Code(s): I10 - Essential (primary) hypertension Code(s): I10 - Essential (primary) hypertension Status: Acute Assessment and Plan: -BP on softer side -Resume home medications, hold if hypotension develops (7) Mechanical heart valve present: Code(s): Z95.2 - Presence of prosthetic heart valve Status: Acute Assessment and Plan: -See above (8) Tobacco use: Code(s): Z72.0 - Tobacco use Status: Acute Assessment and Plan: -Former smoker, current vape user -Consider nicotine patch if symptoms of withdrawal Plan patient with chronic anticoagulation with warfarin for mechanical valve with INR range of 2.5-3.5. Upon arrival patient INR was 11 with c/o hematuria, and dyspnea on exertion. patient was treated with Vitamin K 10mg PO in the ER and FFP on the floor, started on heparin drip, this morning his INR is 3.5, patient is seen by GI and recommending colonoscopy to further evaluate his anemia, patient had colonoscopy today which showed few small-size uncomplicated internal hemorrhoids were seen in the rectum, otherwise colon was remarkable, will hold warfarin for now place the on heparin drip and monitor, as patient with mechanical valve is high risk of stroke with subtherapeutic INR.patient is also found to have a large pleural effusion, patient was seen by racing driver was scheduled for thoracenteses on 11/03 however his INR was 2.5 and requires INR to be close to 1.6 for the procedure, patient is being bridged with heparin, on 11/04 patient INR was 1.9 and today it is 1.5, patient most likely will have thoracentesis on WednesdayNovember 07, will monitor, will add furosemide 40mg IV qd and diuresed the patient. Subjective Date/time seen: 11/05/24 15:18 Interval history: Hematuria, dyspnea on exertion Narrative: This is a 64 year old male patient who complained of hematuria for 2 days and dyspnea on exertion for about a week. Today patient went to see primary care provider in the office regarding his symptoms. PCP thought patient may have urine infection causing hematuria. Patient became significantly tachycardic with minor activity in the office. EKG obtained and EMS called to transport patient to the ER. Patient stated he didn't want to go by EMS but was dizzy so he agreed. Patient has past history of mechanical aortic valve replacement and is on warfarin with goal INR 2.5-3.5. In ER labs noted 2 point drop in hemoglobin from last on record. Additionally, INR noted to be 11.1. Urine grossly bloody and Digital Rectal exam for hemoccult was positive but noted brown stool on finger of ER provider. No melena, BRBPR or hematemesis reported. Patient denies any nose, mouth/gum bleeding or abnormal bruising. He notes dyspnea has slowly worsened over a few weeks since injuring left ribs. Vitamin K 10 mg oral given in ER. On admit we decided to give 2 units of FFP. Repeat Hemoglobin had dropped from 9.2 to 8.5 and will be rechecked again by morning. Will transfuse RBCs if drops below 8. GI consulted for evaluation. patient with chronic anticoagulation with warfarin for mechanical valve with INR range of 2.5-3.5. Upon arrival patient INR was 11 with c/o hematuria, and dyspnea on exertion. patient was treated with Vitamin K 10mg PO in the ER and FFP on the floor, started on heparin drip, this morning his INR is 3.5, patient is seen by GI and recommending colonoscopy to further evaluate his anemia, patient had colonoscopy today which showed few small-size uncomplicated internal hemorrhoids were seen in the rectum, otherwise colon was remarkable, will hold warfarin for now place the on heparin drip and monitor, as patient with mechanical valve is high risk of stroke with subtherapeutic INR.patient is also found to have a large pleural effusion, patient was seen by racing driver was scheduled for thoracenteses on 11/03 however his INR was 2.5 and requires INR to be close to 1.6 for the procedure, patient is being bridged with heparin, on 11/04 patient INR was 1.9 and today it is 1.5, patient most likely will have thoracentesis on WednesdayNovember 07, will monitor, will add furosemide 40mg IV qd and diuresed the patient. Review of Systems Review of Systems: Denies fever, chills or chest pain. All systems reviewed & are unremarkable except as noted in HPI and below Exam Narrative: Patient is comfortable, NAD HEENT: eyes are clear and none icteric LUNGS:CTA HEART: RR S1S2 ABD: BS+, Soft and nontender Lower extremities: no edema SKIN: nonjaundiced Neuro: grossly intact. Objective Data Vital Signs Vital Signs: Vital Signs - 24 hr 11/04/24 16:00 11/04/24 16:00 11/04/24 16:21 Temperature 36.8 C Pulse Rate 96 85 82 Respiratory Rate 20 20 Blood Pressure 120/82 Pulse Oximetry 97 95 Oxygen Delivery Room Air Fraction of Inspired Oxygen 21 11/04/24 18:00 11/04/24 19:09 11/04/24 20:00 Temperature 36.7 C Pulse Rate 93 98 88 Respiratory Rate 18 Blood Pressure 111/66 Pulse Oximetry 98 Oxygen Delivery Fraction of Inspired Oxygen 11/04/24 21:21 11/04/24 21:35 11/04/24 22:00 Temperature Pulse Rate 98 87 89 Respiratory Rate 18 Blood Pressure Pulse Oximetry 98 94 Oxygen Delivery Room Air Room Air Fraction of Inspired Oxygen 11/04/24 23:40 11/04/24 23:40 11/05/24 00:00 Temperature 36.6 C Pulse Rate 75 75 78 Respiratory Rate 20 20 Blood Pressure 113/69 Pulse Oximetry 96 96 Oxygen Delivery Room Air Fraction of Inspired Oxygen 11/05/24 01:42 11/05/24 04:00 11/05/24 04:08 Temperature 36.6 C Pulse Rate 98 75 78 Respiratory Rate 20 Blood Pressure 115/78 Pulse Oximetry 97 Oxygen Delivery Fraction of Inspired Oxygen 11/05/24 04:10 11/05/24 05:12 11/05/24 07:50 Temperature 36.7 C Pulse Rate 78 73 84 Respiratory Rate 20 16 Blood Pressure 101/63 Pulse Oximetry 97 98 Oxygen Delivery Room Air Fraction of Inspired Oxygen 11/05/24 08:00 11/05/24 08:00 11/05/24 10:00 Temperature Pulse Rate 88 78 Respiratory Rate Blood Pressure Pulse Oximetry 98 Oxygen Delivery Room Air Fraction of Inspired Oxygen 11/05/24 11:52 11/05/24 12:00 Temperature 36.7 C Pulse Rate 87 85 Respiratory Rate 20 Blood Pressure 106/74 Pulse Oximetry 97 Oxygen Delivery Fraction of Inspired Oxygen Intake/Output Intake/Output: Intake & Output 11/02/24 11/03/24 11/04/24 11/05/24 23:59 23:59 23:59 23:59 Intake Total 1011 1677.8 2450.5 776.3 Output Total 601 1100 2530 1975 Balance 410 577.8 -79.5 -1198.7 Meds/Results Medications: Active Medications Generic Name Dose Route Start Last Admin Trade Name Freq PRN Reason Stop Dose Admin Albuterol/Ipratropium 3 ml 10/31/24 22:31 10/31/24 22:59 Ipratropium 0.5 Mg/Albuterol Sulfate 2.5 Mg Ampul.Neb 3 Ml INHALATION 3 ml Q6HRT PRN Administration Shortness Of Breath Or Wheezing Bupropion HCl 150 mg 11/01/24 09:00 11/05/24 08:44 Bupropion Hcl Xl (24 Hr) 150 Mg Tabcr PO 150 mg QAM TERRY Administration Cyclobenzaprine HCl 5 mg 10/31/24 22:38 11/04/24 21:30 Cyclobenzaprine Hcl 5 Mg Tablet PO 5 mg TID PRN Administration muscle spasm Empagliflozin 10 mg 11/01/24 09:00 11/05/24 08:44 Empagliflozin 10 Mg Tablet PO 10 mg DAILY TERRY Administration Furosemide 40 mg 11/04/24 15:30 11/05/24 08:44 Furosemide Inj 40 Mg/4 Ml Vial IV PUSH 40 mg DAILY TERRY Administration Heparin Sodium (Porcine) 7,000 units 11/02/24 14:42 11/05/24 06:56 Heparin Sodium 5,000 Units/Ml Vial IV PUSH 7,000 units PRN PRN Administration aPTT less than 55 seconds Heparin Sodium (Porcine) 3,500 units 11/02/24 14:42 11/03/24 09:57 Heparin Sodium 5,000 Units/Ml Vial IV PUSH 3,500 units PRN PRN Administration aPTT 55 - 70 seconds Heparin Sodium/Dextrose 25,000 units in 250 mls @ 14 mls/hr 11/03/24 06:30 11/05/24 13:19 Heparin Sodium/D5w 100 Units/Ml IV CONT 1,400 units/hr .[id number] TERRY 14 mls/hr Titration Protocol 1,400 UNITS/HR Oxycodone/Acetaminophen 1 tab 10/31/24 22:31 11/04/24 21:34 Oxycodone/Acetaminophen (*Crx) 10-325 Mg Tablet PO 1 tab TID PRN Administration pain 7-10 Paroxetine HCl 40 mg 11/01/24 09:00 11/05/24 08:44 Paroxetine 20 Mg Tablet PO 40 mg QAM TERRY Administration Paroxetine HCl 10 mg 11/01/24 09:00 11/05/24 08:44 Paroxetine 10 Mg Tablet PO 10 mg QAM TERRY Administration Sacubitril/Valsartan 1 tablet 10/31/24 22:50 11/05/24 08:43 Sacubitril/Valsartan 49-51 Mg Tablet PO 1 tablet Q12HR TERRY Administration Sodium Chloride 1 gm 11/01/24 09:00 11/05/24 08:43 Sodium Chloride 1 Gm Tablet PO 1 gm DAILY TERRY Administration Spironolactone 25 mg 11/01/24 09:00 11/05/24 08:43 Spironolactone 25 Mg Tablet PO 25 mg DAILY TERRY Administration Warfarin Sodium 2 mg/ Warfarin 7 mg 11/01/24 17:00 11/01/24 17:52 Sodium 5 mg PO Not Given DAILY@1700 [facility] Radiology Results: ITS Impressions Chest X-Ray 10/31/24 18:19 IMPRESSION: Large left-sided pleural effusion without focal infiltrate. Chest CT 10/31/24 19:17 IMPRESSION: Large left-sided pleural effusion with adjacent compressive atelectasis, unchanged from plain film evaluation performed approximately 90 minutes earlier Labs Labs: Laboratory Results - last 24 hr 11/04/24 11/04/24 11/05/24 15:03 21:49 05:27 WBC 8.3 RBC 2.96 L Hgb 9.1 L Hct 29.2 L MCV 98.6 MCH 30.7 MCHC 31.2 L RDW 17.1 H Plt Count 382 H MPV 8.9 Immature Gran % (Auto) 0.8 H Neut % (Auto) 62.2 Lymph % (Auto) 18.3 [place] % (Auto) 11.9 H Eos % (Auto) 6.0 H Baso % (Auto) 0.8 Lymph # (Auto) 1.52 [place] # (Auto) 1.0 H Eos # (Auto) 0.5 H Baso # (Auto) 0.1 Abs Immat Gran (auto) 0.07 H Absolute Neuts (auto) 5.1 Absolute Nucleated RBC 0.000 Nucleated RBC % 0.0 PT INR APTT 53.7 H 149.4 H Sodium Potassium Chloride Carbon Dioxide Anion Gap BUN Creatinine Estim Creat Clear Calc Estimated GFR Glucose Calcium Magnesium Total Bilirubin AST ALT Alkaline Phosphatase Total Protein Albumin 11/05/24 11/05/24 05:28 12:50 WBC RBC Hgb Hct MCV MCH MCHC RDW Plt Count MPV Immature Gran % (Auto) Neut % (Auto) Lymph % (Auto) [place] % (Auto) Eos % (Auto) Baso % (Auto) Lymph # (Auto) [place] # (Auto) Eos # (Auto) Baso # (Auto) Abs Immat Gran (auto) Absolute Neuts (auto) Absolute Nucleated RBC Nucleated RBC % PT 18.4 H INR 1.5 APTT 53.4 H 125.1 H Sodium 136 L Potassium 3.8 Chloride 103 Carbon Dioxide 28 Anion Gap 5 BUN 17 Creatinine 0.98 Estim Creat Clear Calc 78 Estimated GFR > 60 Glucose 99 Calcium 8.7 Magnesium 2.0 Total Bilirubin 1.0 AST 32 ALT 25 Alkaline Phosphatase 73 Total Protein 7.0 Albumin 3.7
[2024-11-05 20:08] LABS: Partial Thromboplastin Time 48.3 Seconds (22.3-36.8)
[2024-11-05] MEDS: CYCLOBENZAPRINE HCL 5 MG TABLET PO (20:25)
[2024-11-05] MEDS: oxyCODONE/ACETAMINOPHEN (*CRX) 10-325 MG TABLET 1 TAB PO (20:25)
[2024-11-06] VITALS (10 sets, daily range): BP systolic 102–123; BP diastolic 64–82; PULSE 78–94; RESP 16–20; TEMP 35.6–36.5; O2SAT 95–99
[2024-11-06 03:00] LABS: Basophils Absolute Auto 0.1 K/mm3 (0.0-0.1); Basophils Percent Auto 0.9 % (0.2-1.2); Eosinophils Absolute Auto 0.5 K/mm3 (0-0.3); Eosinophils Percent Auto 5.2 % (0-4.4); Hematocrit 30.6 % (42.0-52.0); Hemoglobin 9.4 g/dL (14.0-18.0); Immature Granulocyte Absolute 0.09 K/mm3 (0.00-0.031); Lymphocytes Absolute Auto 1.86 K/mm3 (0.9-3.2); Lymphocytes Percent Auto 20.5 % (18.3-44.2); Mean Corpuscular HGB Conc 30.7 g/dl (32-36); Mean Corpuscular Hemoglobin 30.5 pg (26-34); Mean Corpuscular Volume 99.4 fl (80-100); Mean Platelet Volume 8.8 fl (7.4-10.4); Monocytes Absolute Auto 1.2 K/mm3 (0.1-0.6); Monocytes Percent Auto 12.9 % (2.6-8.5); Neutrophils Absolute Auto 5.4 K/mm3 (1.3-6.7); Neutrophils Percent Auto 59.5 % (45.5-73.1); Platelet Count Result 411 k/mm3 (150-375); Red Blood Count 3.08 M/mm3 (4.6-6.20); Red Cell Distribution Width 17.2 % (11.5-14.5); White Blood Count 9.1 K/mm3 (4.5-10.0)
[2024-11-06 03:08] LABS: Alanine Aminotransferase 27 U/L (6-50); Albumin Level 3.9 g/dL (3.5-5.1); Alkaline Phosphatase 76 U/L (38-126); Anion Gap 7 mmol/L (4-12); Aspartate Amino Transferase 33 U/L (17-59); Bilirubin,Total 0.9 mg/dL (0.2-1.3); Blood Urea Nitrogen 20 mg/dL (9-20); Calcium 8.8 mg/dL (8.4-10.2); Carbon Dioxide 30 mmol/L (22-30); Chloride 100 mmol/L (98-107); Estimated CRCL calculation 76 ml/min; Estimated Glomerular Filt Rate > 60; Glucose 108 mg/dL (65-110); Sodium 137 mmol/L (137-145)
[2024-11-06 03:21] LABS: INR 1.2; Prothrombin Time 15.9 Seconds (11.1-14.7)
[2024-11-06 03:36] LABS: Partial Thromboplastin Time 172.2 Seconds (22.3-36.8)
[2024-11-06] MEDS: HEPARIN SOD/D5W 100 UNITS/ML 25,000 UNITS/250 ML BAG 15 UNITS IV CONT (05:20)
[2024-11-06] MEDS: SPIRONOLACTONE 25 MG TABLET PO (08:48)
[2024-11-06] MEDS: FUROSEMIDE INJ 40 MG/4 ML VIAL IV PUSH (08:48)
[2024-11-06] MEDS: PARoxetine 10 MG TABLET PO (08:48)
[2024-11-06] MEDS: PARoxetine 20 MG TABLET 40 MG PO (08:48)
[2024-11-06] MEDS: buPROPion HCL XL (24 HR) 150 MG TABCR PO (08:48)
[2024-11-06] MEDS: SODIUM CHLORIDE 1 GM TABLET PO (08:48)
[2024-11-06] MEDS: SACUBITRIL/VALSARTAN 49-51 MG TABLET 1 TABLET PO ×2 (08:48→21:15)
[2024-11-06] MEDS: EMPAGLIFLOZIN 10 MG TABLET PO (08:48)
[2024-11-06 10:53] LABS: Soluble Transferrin Receptor 1.77 mg/L (0.76-1.76)
[2024-11-06 11:25] LABS: Partial Thromboplastin Time 56.8 Seconds (22.3-36.8)
[2024-11-06 11:28] LABS: Methylmalonic Acid 185 nmol/L (69-390)
[2024-11-06] MEDS: HEPARIN SODIUM 5,000 UNITS/ML VIAL 3500 UNITS IV PUSH (11:36)
--- NOTE | 2024-11-06 14:23 | P.PNIM_ITS ---
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 use yarn examiner with goal INR 2.5-3.5 -Did not use K-Centra as current bleeding is not life threatening and we don't want to overcorrect INR if at all possible -Occult positive stool and gross hematuria present -Vitamin K 10 mg oral given in ER -On admit decided to give 2 units FFP and recheck INR after transfusion -Check H&H or CBC every 4 hours and transfuse PRBCs if drops below 8 and bleeding still present -GI consult as below (2) Hematuria: Code(s): R31.9 - Hematuria, unspecified Status: Acute Assessment and Plan: -Gross hematuria noted on my exam of output -Started 2 days ago -Patient continued warfarin dosing despite hematuria -warfarin now held as above -Goal INR 2.5-3.5 due to mechanical heart valve -Consider abd/pelvis CT scan and/or consult to Urology if this continues after INR improvement (3) Atrial fibrillation with rapid ventricular response: Code(s): I48.91 - Unspecified atrial fibrillation Status: Acute Assessment and Plan: -History a-fib and tachy dysrhythmia noted at PCP office -[place] [facility] [place] may need tele if downgraded after more medically stable (4) Acute upper GI bleed: Code(s): K92.2 - Gastrointestinal hemorrhage, unspecified Status: Acute Assessment and Plan: -Hemoccult positive -History of esophagitis -Pantoprazole 80 mg IV in ER and ordered 40 mg Q12HR to start in AM -GI consulted -Patient was NPO after midnight in case GI wants to go for EGD in the morning -Will want INR improved first (5) Pleural effusion: Code(s): J90 - Pleural effusion, not elsewhere classified Status: Acute Assessment and Plan: -Large left pleural effusion present on imaging -Dyspnea on exertion worsening over past couple weeks likely combination pleural effusion and anemia -Recent broken ribs, possible for this to be partial hemothorax -Not currently requiring oxygen -Order Echocardiogram to assess heart failure status (6) Hypertension: Qualifiers: Hypertension type: essential hypertension Qualified Code(s): I10 - Essential (primary) hypertension Code(s): I10 - Essential (primary) hypertension Status: Acute Assessment and Plan: -BP on softer side -Resume home medications, hold if hypotension develops (7) Mechanical heart valve present: Code(s): Z95.2 - Presence of prosthetic heart valve Status: Acute Assessment and Plan: -See above (8) Tobacco use: Code(s): Z72.0 - Tobacco use Status: Acute Assessment and Plan: -Former smoker, current vape user -Consider nicotine patch if symptoms of withdrawal Plan patient with chronic anticoagulation with warfarin for mechanical valve with INR range of 2.5-3.5. Upon arrival patient INR was 11 with c/o hematuria, and dyspnea on exertion. patient was treated with Vitamin K 10mg PO in the ER and FFP on the floor, started on heparin drip, this morning his INR is 3.5, patient is seen by GI and recommending colonoscopy to further evaluate his anemia, patient had colonoscopy today which showed few small-size uncomplicated internal hemorrhoids were seen in the rectum, otherwise colon was remarkable, will hold warfarin for now place the on heparin drip and monitor, as patient with mechanical valve is high risk of stroke with subtherapeutic INR.patient is also found to have a large pleural effusion, patient was seen by driver education road instructor was scheduled for thoracenteses on 11/03 however his INR was 2.5 and requires INR to be close to 1.6 for the procedure, patient is being bridged with heparin, on 11/04 patient INR was 1.9 and today it is 1.2, patient most likely will have thoracentesis on tomorrow November 07, will monitor, will add furosemide 40mg IV qd and diuresed the patient. Subjective Date/time seen: 11/06/24 14:23 Interval history: Hematuria, dyspnea on exertion Narrative: This is a 64 year old male patient who complained of hematuria for 2 days and dyspnea on exertion for about a week. Today patient went to see primary care provider in the office regarding his symptoms. PCP thought patient may have urine infection causing hematuria. Patient became significantly tachycardic with minor activity in the office. EKG obtained and EMS called to transport patient to the ER. Patient stated he didn't want to go by EMS but was dizzy so he agreed. Patient has past history of mechanical aortic valve replacement and is on warfarin with goal INR 2.5-3.5. In ER labs noted 2 point drop in hemoglobin from last on record. Additionally, INR noted to be 11.1. Urine grossly bloody and Digital Rectal exam for hemoccult was positive but noted brown stool on finger of ER provider. No melena, BRBPR or hematemesis reported. Patient denies any nose, mouth/gum bleeding or abnormal bruising. He notes dyspnea has slowly worsened over a few weeks since injuring left ribs. Vitamin K 10 mg oral given in ER. On admit we decided to give 2 units of FFP. Repeat Hemoglobin had dropped from 9.2 to 8.5 and will be rechecked again by morning. Will transfuse RBCs if drops below 8. GI consulted for evaluation. patient with chronic anticoagulation with warfarin for mechanical valve with INR range of 2.5-3.5. Upon arrival patient INR was 11 with c/o hematuria, and dyspnea on exertion. patient was treated with Vitamin K 10mg PO in the ER and FFP on the floor, started on heparin drip, this morning his INR is 3.5, patient is seen by GI and recommending colonoscopy to further evaluate his anemia, patient had colonoscopy today which showed few small-size uncomplicated internal hemorrhoids were seen in the rectum, otherwise colon was remarkable, will hold warfarin for now place the on heparin drip and monitor, as patient with mechanical valve is high risk of stroke with subtherapeutic INR.patient is also found to have a large pleural effusion, patient was seen by driver education road instructor was scheduled for thoracenteses on 11/03 however his INR was 2.5 and requires INR to be close to 1.6 for the procedure, patient is being bridged with heparin, on 11/04 patient INR was 1.9 and today it is 1.2, patient most likely will have thoracentesis on tomorrow November 07, will monitor, will add furosemide 40mg IV qd and diuresed the patient. Review of Systems Review of Systems: Denies fever, chills or chest pain. All systems reviewed & are unremarkable except as noted in HPI and below Exam Narrative: Patient is comfortable, NAD HEENT: eyes are clear and none icteric LUNGS:CTA HEART: RR S1S2 ABD: BS+, Soft and nontender Lower extremities: no edema SKIN: nonjaundiced Neuro: grossly intact. Objective Data Vital Signs Vital Signs: Vital Signs - 24 hr 11/05/24 15:19 11/05/24 16:00 11/05/24 20:00 Temperature 36.5 C Pulse Rate 82 82 88 Respiratory Rate 16 16 Blood Pressure 111/75 Pulse Oximetry 99 96 Oxygen Delivery Room Air Fraction of Inspired Oxygen 21 11/05/24 20:00 11/05/24 20:21 11/06/24 00:00 Temperature 37.0 C Pulse Rate 91 88 85 Respiratory Rate 16 Blood Pressure 130/84 Pulse Oximetry 96 Oxygen Delivery Fraction of Inspired Oxygen 11/06/24 00:33 11/06/24 04:00 11/06/24 04:47 Temperature 36.5 C 36.3 C L Pulse Rate 79 78 78 Respiratory Rate 18 16 Blood Pressure 115/81 123/82 Pulse Oximetry 95 96 Oxygen Delivery Fraction of Inspired Oxygen 11/06/24 07:50 11/06/24 08:00 11/06/24 08:48 Temperature 35.9 C L Pulse Rate 84 94 Respiratory Rate 20 Blood Pressure 115/78 Pulse Oximetry 97 Oxygen Delivery Room Air Fraction of Inspired Oxygen 11/06/24 12:00 11/06/24 12:00 Temperature 36.2 C L Pulse Rate 90 93 Respiratory Rate 18 Blood Pressure 102/76 Pulse Oximetry 96 Oxygen Delivery Fraction of Inspired Oxygen Intake/Output Intake/Output: Intake & Output 11/03/24 11/04/24 11/05/24 11/06/24 23:59 23:59 23:59 23:59 Intake Total 1677.8 2450.5 1114.5 1019 Output Total 1100 2530 1975 450 Balance 577.8 -79.5 -860.5 569 Meds/Results Medications: Active Medications Generic Name Dose Route Start Last Admin Trade Name Freq PRN Reason Stop Dose Admin Albuterol/Ipratropium 3 ml 10/31/24 22:31 10/31/24 22:59 Ipratropium 0.5 Mg/Albuterol Sulfate 2.5 Mg Ampul.Neb 3 Ml INHALATION 3 ml Q6HRT PRN Administration Shortness Of Breath Or Wheezing Bupropion HCl 150 mg 11/01/24 09:00 11/06/24 08:48 Bupropion Hcl Xl (24 Hr) 150 Mg Tabcr PO 150 mg QAM TERRY Administration Cyclobenzaprine HCl 5 mg 10/31/24 22:38 11/05/24 20:25 Cyclobenzaprine Hcl 5 Mg Tablet PO 5 mg TID PRN Administration muscle spasm Empagliflozin 10 mg 11/01/24 09:00 11/06/24 08:48 Empagliflozin 10 Mg Tablet PO 10 mg DAILY TERRY Administration Furosemide 40 mg 11/04/24 15:30 11/06/24 08:48 Furosemide Inj 40 Mg/4 Ml Vial IV PUSH 40 mg DAILY TERRY Administration Heparin Sodium (Porcine) 7,000 units 11/02/24 14:42 11/05/24 20:20 Heparin Sodium 5,000 Units/Ml Vial IV PUSH 7,000 units PRN PRN Administration aPTT less than 55 seconds Heparin Sodium (Porcine) 3,500 units 11/02/24 14:42 11/06/24 11:36 Heparin Sodium 5,000 Units/Ml Vial IV PUSH 3,500 units PRN PRN Administration aPTT 55 - 70 seconds Heparin Sodium/Dextrose 25,000 units in 250 mls @ 17 mls/hr 11/03/24 06:30 11/06/24 11:36 Heparin Sodium/D5w 100 Units/Ml IV CONT 1,700 units/hr .[id number] TERRY 17 mls/hr Titration Protocol 1,700 UNITS/HR Oxycodone/Acetaminophen 1 tab 10/31/24 22:31 11/05/24 20:25 Oxycodone/Acetaminophen (*Crx) 10-325 Mg Tablet PO 1 tab TID PRN Administration pain 7-10 Paroxetine HCl 40 mg 11/01/24 09:00 11/06/24 08:48 Paroxetine 20 Mg Tablet PO 40 mg QAM TERRY Administration Paroxetine HCl 10 mg 11/01/24 09:00 11/06/24 08:48 Paroxetine 10 Mg Tablet PO 10 mg QAM TERRY Administration Sacubitril/Valsartan 1 tablet 10/31/24 22:50 11/06/24 08:48 Sacubitril/Valsartan 49-51 Mg Tablet PO 1 tablet Q12HR TERRY Administration Sodium Chloride 1 gm 11/01/24 09:00 11/06/24 08:48 Sodium Chloride 1 Gm Tablet PO 1 gm DAILY TERRY Administration Spironolactone 25 mg 11/01/24 09:00 11/06/24 08:48 Spironolactone 25 Mg Tablet PO 25 mg DAILY [facility] Administration Warfarin Sodium 2 mg/ Warfarin 7 mg 11/01/24 17:00 11/01/24 17:52 Sodium 5 mg PO Not Given DAILY@1700 [facility] Radiology Results: ITS Impressions Chest X-Ray 10/31/24 18:19 IMPRESSION: Large left-sided pleural effusion without focal infiltrate. Chest CT 10/31/24 19:17 IMPRESSION: Large left-sided pleural effusion with adjacent compressive atelectasis, unchanged from plain film evaluation performed approximately 90 minutes earlier Labs Labs: Laboratory Results - last 24 hr 11/02/24 11/05/24 11/06/24 21:56 19:41 02:54 WBC 9.1 RBC 3.08 L Hgb 9.4 L Hct 30.6 L MCV 99.4 MCH 30.5 MCHC 30.7 L RDW 17.2 H Plt Count 411 H MPV 8.8 Immature Gran % (Auto) 1.0 H Neut % (Auto) 59.5 Lymph % (Auto) 20.5 Foard % (Auto) 12.9 H Eos % (Auto) 5.2 H Baso % (Auto) 0.9 Lymph # (Auto) 1.86 Foard # (Auto) 1.2 H Eos # (Auto) 0.5 H Baso # (Auto) 0.1 Abs Immat Gran (auto) 0.09 H Absolute Neuts (auto) 5.4 Absolute Nucleated RBC 0.000 Nucleated RBC % 0.0 PT 15.9 H INR 1.2 APTT 48.3 H 172.2 H* Sodium 137 Potassium 4.0 Chloride 100 Carbon Dioxide 30 Anion Gap 7 BUN 20 Creatinine 1.01 Estim Creat Clear Calc 76 Estimated GFR > 60 Glucose 108 Calcium 8.8 Magnesium 2.0 Sumaya Transferrin Receptr 1.77 H Total Bilirubin 0.9 AST 33 ALT 27 Alkaline Phosphatase 76 Total Protein 7.0 Albumin 3.9 Methylmalonic Acid 185 11/06/24 10:48 WBC RBC Hgb Hct MCV MCH MCHC RDW Plt Count MPV Immature Gran % (Auto) Neut % (Auto) Lymph % (Auto) Foard % (Auto) Eos % (Auto) Baso % (Auto) Lymph # (Auto) Foard # (Auto) Eos # (Auto) Baso # (Auto) Abs Immat Gran (auto) Absolute Neuts (auto) Absolute Nucleated RBC Nucleated RBC % PT INR APTT 56.8 H Sodium Potassium Chloride Carbon Dioxide Anion Gap BUN Creatinine Estim Creat Clear Calc Estimated GFR Glucose Calcium Magnesium [employer] Transferrin Receptr Total Bilirubin AST ALT Alkaline Phosphatase Total Protein Albumin Methylmalonic Acid
[2024-11-06 15:43] LABS: Immunofixation, Serum Normal pattern.
[2024-11-06 18:20] LABS: Partial Thromboplastin Time 89.7 Seconds (22.3-36.8)
[2024-11-06] MEDS: CYCLOBENZAPRINE HCL 5 MG TABLET PO (21:15)
[2024-11-06] MEDS: oxyCODONE/ACETAMINOPHEN (*CRX) 10-325 MG TABLET 1 TAB PO (21:15)
[2024-11-06] MEDS: HEPARIN SOD/D5W 100 UNITS/ML 25,000 UNITS/250 ML BAG 17 UNITS IV CONT ×2 (21:17→23:22)
[2024-11-07] VITALS (8 sets, daily range): BP systolic 99–110; BP diastolic 57–76; PULSE 80–104; RESP 16–18; TEMP 36.2–36.4; O2SAT 92–97
[2024-11-07 06:15] LABS: Basophils Absolute Auto 0.1 K/mm3 (0.0-0.1); Basophils Percent Auto 0.9 % (0.2-1.2); Eosinophils Absolute Auto 0.5 K/mm3 (0-0.3); Eosinophils Percent Auto 6.4 % (0-4.4); Hematocrit 32.1 % (42.0-52.0); Hemoglobin 9.7 g/dL (14.0-18.0); Immature Granulocyte Absolute 0.12 K/mm3 (0.00-0.031); Immature Granulocyte Percent A 1.5 % (0-0.5); Lymphocytes Absolute Auto 1.69 K/mm3 (0.9-3.2); Mean Corpuscular HGB Conc 30.2 g/dl (32-36); Mean Corpuscular Hemoglobin 30.4 pg (26-34); Mean Corpuscular Volume 100.6 fl (80-100); Mean Platelet Volume 9.1 fl (7.4-10.4); Neutrophils Absolute Auto 4.6 K/mm3 (1.3-6.7); Neutrophils Percent Auto 57.2 % (45.5-73.1); Platelet Count Result 448 k/mm3 (150-375); Red Blood Count 3.19 M/mm3 (4.6-6.20); Red Cell Distribution Width 17.2 % (11.5-14.5)
[2024-11-07 06:32] LABS: INR 1.1; Prothrombin Time 14.7 Seconds (11.1-14.7)
[2024-11-07 06:40] LABS: Alanine Aminotransferase 30 U/L (6-50); Albumin Level 3.8 g/dL (3.5-5.1); Alkaline Phosphatase 74 U/L (38-126); Anion Gap 6 mmol/L (4-12); Aspartate Amino Transferase 39 U/L (17-59); Bilirubin,Total 0.8 mg/dL (0.2-1.3); Blood Urea Nitrogen 18 mg/dL (9-20); Carbon Dioxide 31 mmol/L (22-30); Chloride 99 mmol/L (98-107); Estimated CRCL calculation 81 ml/min; Estimated Glomerular Filt Rate > 60; Glucose 95 mg/dL (65-110); Sodium 136 mmol/L (137-145)
--- NOTE | 2024-11-07 11:25 | CY_PTH ---
PATIENT: Aly Starr LOC: [id number] U#:[id number] AGE/SX: 64/M ROOM: 313 RE11/02/[address]: Burak Cabrales MD : [id number] BED: 01 DIS: 11/09/2024 SPEC #: [id number] RECD: 11/07/24 12:52 STATUS: DAVY REAmandeep #: [id number] DORIAN: 11/07/24 11:[address]: Burak Cabrales DEPT: [facility] Cytology RECD BY: Toro Kaplan ENTERED: 11/07/24 12:53 SP TYPE: Cytology OTHR DR: MD Kevin Arteaga MD Amardeep Shrestha, MD Tissues: A - Pleural Fluid Procedures: Hematoxylin and Eosin Stain Cell Block [id number] Calretinin Cytopathology Cytospin
[2024-11-07 12:53] LABS: pH Pleural Fluid 7.401 (7.210-7.500)
[2024-11-07 13:27] LABS: Pleural fluid source Pleural fluid
[2024-11-07 13:28] LABS: Appearance Pleural Fluid Turbid (Clear); Color Pleural Fluid Other (Colorless); Lymphocytes Pleural Fluid 92 %; Mesothelial Cells Pleural Flui 1 %; Monocytes Pleural Fluid 5 %; Neutrophils Pleural Fluid 1 % (0-25); Nucleated Cell Pleural Fluid 2525 /uL (0-1000); RBC Pleural Fluid 960000 /uL (0-10000)
[2024-11-07] MEDS: PARoxetine 10 MG TABLET PO (14:05)
[2024-11-07] MEDS: PARoxetine 20 MG TABLET 40 MG PO (14:05)
[2024-11-07] MEDS: SACUBITRIL/VALSARTAN 49-51 MG TABLET 1 TABLET PO ×2 (14:05→20:39)
[2024-11-07] MEDS: SODIUM CHLORIDE 1 GM TABLET PO (14:05)
[2024-11-07] MEDS: EMPAGLIFLOZIN 10 MG TABLET PO (14:06)
[2024-11-07] MEDS: buPROPion HCL XL (24 HR) 150 MG TABCR PO (14:06)
[2024-11-07] MEDS: FUROSEMIDE INJ 40 MG/4 ML VIAL IV PUSH (14:06)
[2024-11-07] MEDS: SPIRONOLACTONE 25 MG TABLET PO (14:06)
--- NOTE | 2024-11-07 16:10 | PM.IMPN ---
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 2.5-3.5 -Did not use K-Centra as current bleeding is not life threatening and we don't want to overcorrect INR if at all possible -Occult positive stool and gross hematuria present -Vitamin K 10 mg oral given in ER -On admit decided to give 2 units FFP and recheck INR after transfusion -Check H&H or CBC every 4 hours and transfuse PRBCs if drops below 8 and bleeding still present -GI consult as below (2) Hematuria: Code(s): R31.9 - Hematuria, unspecified Status: Acute Assessment and Plan: -Gross hematuria noted on my exam of output -Started 2 days ago -Patient continued warfarin dosing despite hematuria -warfarin now held as above -Goal INR 2.5-3.5 due to mechanical heart valve -Consider abd/pelvis CT scan and/or consult to Urology if this continues after INR improvement (3) Atrial fibrillation with rapid ventricular response: Code(s): I48.91 - Unspecified atrial fibrillation Status: Acute Assessment and Plan: -History a-fib and tachy dysrhythmia noted at PCP office -Patient admitted to [facility] [place], may need tele if downgraded after more medically stable (4) Acute upper GI bleed: Code(s): K92.2 - Gastrointestinal hemorrhage, unspecified Status: Acute Assessment and Plan: -Hemoccult positive -History of esophagitis -Pantoprazole 80 mg IV in ER and ordered 40 mg Q12HR to start in AM -GI consulted -Patient was NPO after midnight in case GI wants to go for EGD in the morning -Will want INR improved first (5) Pleural effusion: Code(s): J90 - Pleural effusion, not elsewhere classified Status: Acute Assessment and Plan: -Large left pleural effusion present on imaging -Dyspnea on exertion worsening over past couple weeks likely combination pleural effusion and anemia -Recent broken ribs, possible for this to be partial hemothorax -Not currently requiring oxygen -Order Echocardiogram to assess heart failure status (6) Hypertension: Qualifiers: Hypertension type: essential hypertension Qualified Code(s): I10 - Essential (primary) hypertension Code(s): I10 - Essential (primary) hypertension Status: Acute Assessment and Plan: -BP on softer side -Resume home medications, hold if hypotension develops (7) Mechanical heart valve present: Code(s): Z95.2 - Presence of prosthetic heart valve Status: Acute Assessment and Plan: -See above (8) Tobacco use: Code(s): Z72.0 - Tobacco use Status: Acute Assessment and Plan: -Former smoker, current vape user -Consider nicotine patch if symptoms of withdrawal Plan patient with chronic anticoagulation with warfarin for mechanical valve with INR range of 2.5-3.5. Upon arrival patient INR was 11 with c/o hematuria, and dyspnea on exertion. patient was treated with Vitamin K 10mg PO in the ER and FFP on the floor, started on heparin drip, this morning his INR is 3.5, patient is seen by GI and recommending colonoscopy to further evaluate his anemia, patient had colonoscopy today which showed few small-size uncomplicated internal hemorrhoids were seen in the rectum, otherwise colon was remarkable, will hold warfarin for now place the on heparin drip and monitor, as patient with mechanical valve is high risk of stroke with subtherapeutic INR.patient is also found to have a large pleural effusion, patient was seen by vault teller was scheduled for thoracenteses on 11/03 however his INR was 2.5 and requires INR to be close to 1.6 for the procedure, patient is being bridged with heparin, on 11/04 patient INR was 1.9 and today it is 1.2, patient today patient thoracentesis and 1000cc of dark maroon-colored fluid was collected will resume heparin and Coumadin once it is okay with the IR. will monitor, added furosemide 40mg IV qd and diuresed the patient. will have Dr. Cordova consult the patient and further recommendation to follow. Subjective Date/time seen: 11/07/24 16:10 Interval history: Hematuria, dyspnea on exertion Narrative: This is a 64 year old male patient who complained of hematuria for 2 days and dyspnea on exertion for about a week. Today patient went to see primary care provider in the office regarding his symptoms. PCP thought patient may have urine infection causing hematuria. Patient became significantly tachycardic with minor activity in the office. EKG obtained and EMS called to transport patient to the ER. Patient stated he didn't want to go by EMS but was dizzy so he agreed. Patient has past history of mechanical aortic valve replacement and is on warfarin with goal INR 2.5-3.5. In ER labs noted 2 point drop in hemoglobin from last on record. Additionally, INR noted to be 11.1. Urine grossly bloody and Digital Rectal exam for hemoccult was positive but noted brown stool on finger of ER provider. No melena, BRBPR or hematemesis reported. Patient denies any nose, mouth/gum bleeding or abnormal bruising. He notes dyspnea has slowly worsened over a few weeks since injuring left ribs. Vitamin K 10 mg oral given in ER. On admit we decided to give 2 units of FFP. Repeat Hemoglobin had dropped from 9.2 to 8.5 and will be rechecked again by morning. Will transfuse RBCs if drops below 8. GI consulted for evaluation. patient with chronic anticoagulation with warfarin for mechanical valve with INR range of 2.5-3.5. Upon arrival patient INR was 11 with c/o hematuria, and dyspnea on exertion. patient was treated with Vitamin K 10mg PO in the ER and FFP on the floor, started on heparin drip, this morning his INR is 3.5, patient is seen by GI and recommending colonoscopy to further evaluate his anemia, patient had colonoscopy today which showed few small-size uncomplicated internal hemorrhoids were seen in the rectum, otherwise colon was remarkable, will hold warfarin for now place the on heparin drip and monitor, as patient with mechanical valve is high risk of stroke with subtherapeutic INR.patient is also found to have a large pleural effusion, patient was seen by vault teller was scheduled for thoracenteses on 11/03 however his INR was 2.5 and requires INR to be close to 1.6 for the procedure, patient is being bridged with heparin, on 11/04 patient INR was 1.9 and today it is 1.2, patient today patient thoracentesis and 1000cc of dark maroon-colored fluid was collected will resume heparin and Coumadin once it is okay with the IR. will monitor, added furosemide 40mg IV qd and diuresed the patient. will have Dr. Cordova consult the patient and further recommendation to follow. Review of Systems Review of Systems: All systems reviewed & are unremarkable except as noted in HPI and below Exam Narrative: Patient is comfortable, NAD HEENT: eyes are clear and none icteric LUNGS:CTA HEART: RR S1S2 ABD: BS+, Soft and nontender Lower extremities: no edema SKIN: nonjaundiced Neuro: grossly intact. Objective Data Vital Signs Vital Signs: Vital Signs - 24 hr 11/06/24 20:00 11/06/24 20:00 11/06/24 20:13 Temperature 36.4 C L Pulse Rate 91 90 91 Respiratory Rate 16 16 Blood Pressure 104/64 Pulse Oximetry 97 97 Oxygen Delivery Room Air Fraction of Inspired Oxygen 21 11/07/24 00:00 11/07/24 04:00 11/07/24 04:00 Temperature 36.2 C L Pulse Rate 82 95 80 Respiratory Rate 16 Blood Pressure 99/57 L Pulse Oximetry 95 Oxygen Delivery Fraction of Inspired Oxygen 11/07/24 08:00 11/07/24 08:00 11/07/24 08:00 Temperature 36.4 C Pulse Rate 90 81 Respiratory Rate 16 Blood Pressure 110/63 Pulse Oximetry 92 Oxygen Delivery Room Air Fraction of Inspired Oxygen 11/07/24 12:00 11/07/24 14:00 Temperature 36.2 C L Pulse Rate 81 81 Respiratory Rate 16 Blood Pressure 110/76 Pulse Oximetry 97 Oxygen Delivery Fraction of Inspired Oxygen Intake/Output Intake/Output: Intake & Output 11/04/24 11/05/24 11/06/24 11/07/24 23:59 23:59 23:59 23:59 Intake Total 2450.5 1114.5 1450.4 263.6 Output Total 2530 5447 139 7895 Balance -79.5 -860.5 1000.4 -1286.4 Meds/Results Medications: Active Medications Generic Name Dose Route Start Last Admin Trade Name Freq PRN Reason Stop Dose Admin Albuterol/Ipratropium 3 ml 10/31/24 22:31 10/31/24 22:59 Ipratropium 0.5 Mg/Albuterol Sulfate 2.5 Mg Ampul.Neb 3 Ml INHALATION 3 ml Q6HRT PRN Administration Shortness Of Breath Or Wheezing Bupropion HCl 150 mg 11/01/24 09:00 11/07/24 14:06 Bupropion Hcl Xl (24 Hr) 150 Mg Tabcr PO 150 mg QAM TERRY Administration Cyclobenzaprine HCl 5 mg 05/20/25 22:38 11/06/24 21:15 Cyclobenzaprine Hcl 5 Mg Tablet PO 5 mg TID PRN Administration muscle spasm Empagliflozin 10 mg 11/01/24 09:00 11/07/24 14:06 Empagliflozin 10 Mg Tablet PO 10 mg DAILY TERRY Administration Furosemide 40 mg 11/04/24 15:30 11/07/24 14:06 Furosemide Inj 40 Mg/4 Ml Vial IV PUSH 40 mg DAILY TERRY Administration Heparin Sodium (Porcine) 7,000 units 11/02/24 14:42 11/05/24 20:20 Heparin Sodium 5,000 Units/Ml Vial IV PUSH 7,000 units PRN PRN Administration aPTT less than 55 seconds Heparin Sodium (Porcine) 3,500 units 11/02/24 14:42 11/06/24 11:36 Heparin Sodium 5,000 Units/Ml Vial IV PUSH 3,500 units PRN PRN Administration aPTT 55 - 70 seconds Heparin Sodium/Dextrose 25,000 units in 250 mls @ 0 mls/hr 11/03/24 06:30 11/07/24 06:03 Heparin Sodium/D5w 100 Units/Ml IV CONT 0 units/hr .Q0M TERRY 0 mls/hr Titration Protocol 0 UNITS/HR Oxycodone/Acetaminophen 1 tab 10/31/24 22:31 11/06/24 21:15 Oxycodone/Acetaminophen (*Crx) 10-325 Mg Tablet PO 1 tab TID PRN Administration pain 7-10 Paroxetine HCl 40 mg 11/01/24 09:00 11/07/24 14:05 Paroxetine 20 Mg Tablet PO 40 mg QAM TERRY Administration Paroxetine HCl 10 mg 11/01/24 09:00 11/07/24 14:05 Paroxetine 10 Mg Tablet PO 10 mg QAM TERRY Administration Sacubitril/Valsartan 1 tablet 10/31/24 22:50 11/07/24 14:05 Sacubitril/Valsartan 49-51 Mg Tablet PO 1 tablet Q12HR TERRY Administration Sodium Chloride 1 gm 11/01/24 09:00 11/07/24 14:05 Sodium Chloride 1 Gm Tablet PO 1 gm DAILY TERRY Administration Sodium Chloride 6 ml 11/08/24 05:00 Sodium Chlor 3% 15 Ml Neb (Respiratory Therapy) INHALATION 11/10/24 05:01 DAILY@0500 TERRY Spironolactone 25 mg 11/01/24 09:00 11/07/24 14:06 Spironolactone 25 Mg Tablet PO 25 mg DAILY [facility] Administration Warfarin Sodium 2 mg/ Warfarin 7 mg 11/01/24 17:00 11/01/24 17:52 Sodium 5 mg PO Not Given DAILY@1700 [facility] Radiology Results: ITS Impressions Chest CT 10/31/24 19:17 IMPRESSION: Large left-sided pleural effusion with adjacent compressive atelectasis, unchanged from plain film evaluation performed approximately 90 minutes earlier ADDENDUM: 11/07/24 1223 Redemonstration of acute minimally displaced fractures of the left seventh through ninth ribs. Chest X-Ray 11/07/24 12:16 IMPRESSION: Improved left-sided pleural effusion without left-sided pneumothorax following left-sided thoracentesis. Thoracentesis Ultrasound 11/07/24 12:49 IMPRESSION: 1. Successful ultrasound-guided thoracentesis yielding 1000 mL of dark maroon-colored fluid. Labs Labs: Laboratory Results - last 24 hr 11/06/24 11/06/24 11/07/24 17:37 22:49 05:38 WBC 8.0 RBC 3.19 L Hgb 9.7 L Hct 32.1 L MCV 100.6 H MCH 30.4 MCHC 30.2 L RDW 17.2 H Plt Count 448 H MPV 9.1 Immature Gran % (Auto) 1.5 H Neut % (Auto) 57.2 Lymph % (Auto) 21.0 [place] % (Auto) 13.0 H Eos % (Auto) 6.4 H Baso % (Auto) 0.9 Lymph # (Auto) 1.69 [place] # (Auto) 1.0 H Eos # (Auto) 0.5 H Baso # (Auto) 0.1 Abs Immat Gran (auto) 0.12 H Absolute Neuts (auto) 4.6 Absolute Nucleated RBC 0.000 Nucleated RBC % 0.0 PT 14.7 INR 1.1 APTT 89.7 H 81.0 H Sodium 136 L Potassium 4.0 Chloride 99 Carbon Dioxide 31 H Anion Gap 6 BUN 18 Creatinine 0.94 Estim Creat Clear Calc 81 Estimated GFR > 60 Glucose 95 Calcium 9.0 Magnesium 2.0 Total Bilirubin 0.8 AST 39 ALT 30 Alkaline Phosphatase 74 Total Protein 7.0 Albumin 3.8 Pleural Fluid Source Pleural Color Pleural Appearance Pleural pH Pleural RBC Pleural Nuc Cells Pleural Neutrophils Pleural Lymphocytes Pleural Monocytes Pleural Mesothelial 11/07/24 11:41 WBC RBC Hgb Hct MCV MCH MCHC RDW Plt Count MPV Immature Gran % (Auto) Neut % (Auto) Lymph % (Auto) [place] % (Auto) Eos % (Auto) Baso % (Auto) Lymph # (Auto) [place] # (Auto) Eos # (Auto) Baso # (Auto) Abs Immat Gran (auto) Absolute Neuts (auto) Absolute Nucleated RBC Nucleated RBC % PT INR APTT Sodium Potassium Chloride Carbon Dioxide Anion Gap BUN Creatinine Estim Creat Clear Calc Estimated GFR Glucose Calcium Magnesium Total Bilirubin AST ALT Alkaline Phosphatase Total Protein Albumin Pleural Fluid Source Pleural fluid Pleural Color Other Pleural Appearance Turbid Pleural pH 7.401 Pleural RBC 183012 H Pleural Nuc Cells 2525 H Pleural Neutrophils 1 Pleural Lymphocytes 92 Pleural Monocytes 5 Pleural Mesothelial 1
[2024-11-07 19:45] LABS: Partial Thromboplastin Time 27.6 Seconds (22.3-36.8)
[2024-11-07 20:03] LABS: Albumin 3.7 g/dL (3.8-4.8); Alpha 1 Globulin 0.4 g/dL (0.2-0.3); Alpha 2 Globulin 0.5 g/dL (0.5-0.9); Beta 1 Globulin 0.5 g/dL (0.4-0.6); Gamma Globulin 1.1 g/dL (0.8-1.7)
[2024-11-07] MEDS: WARFARIN (*PBKC) 2 MG, WARFARIN (*PBKC) 5 MG 7 MG PO (20:39)
[2024-11-08] VITALS (9 sets, daily range): BP systolic 100–126; BP diastolic 70–79; PULSE 88–98; RESP 16–18; TEMP 36.3–36.5; O2SAT 94–97
[2024-11-08] MEDS: HEPARIN SOD/D5W 100 UNITS/ML 25,000 UNITS/250 ML BAG 17 UNITS IV CONT ×2 (00:39→04:18)
[2024-11-08 05:24] LABS: Basophils Absolute Auto 0.1 K/mm3 (0.0-0.1); Basophils Percent Auto 0.9 % (0.2-1.2); Eosinophils Absolute Auto 0.5 K/mm3 (0-0.3); Eosinophils Percent Auto 4.7 % (0-4.4); Hematocrit 33.2 % (42.0-52.0); Hemoglobin 10.2 g/dL (14.0-18.0); Immature Granulocyte Absolute 0.08 K/mm3 (0.00-0.031); Immature Granulocyte Percent A 0.8 % (0-0.5); Lymphocytes Absolute Auto 1.45 K/mm3 (0.9-3.2); Lymphocytes Percent Auto 14.2 % (18.3-44.2); Mean Corpuscular HGB Conc 30.7 g/dl (32-36); Mean Corpuscular Hemoglobin 30.3 pg (26-34); Mean Corpuscular Volume 98.5 fl (80-100); Mean Platelet Volume 8.7 fl (7.4-10.4); Monocytes Absolute Auto 1.2 K/mm3 (0.1-0.6); Monocytes Percent Auto 12.1 % (2.6-8.5); Neutrophils Absolute Auto 6.9 K/mm3 (1.3-6.7); Neutrophils Percent Auto 67.3 % (45.5-73.1); Platelet Count Result 445 k/mm3 (150-375); Red Blood Count 3.37 M/mm3 (4.6-6.20); Red Cell Distribution Width 17.2 % (11.5-14.5); White Blood Count 10.2 K/mm3 (4.5-10.0)
[2024-11-08 05:39] LABS: Alanine Aminotransferase 39 U/L (6-50); Albumin Level 3.8 g/dL (3.5-5.1); Alkaline Phosphatase 73 U/L (38-126); Anion Gap 8 mmol/L (4-12); Aspartate Amino Transferase 40 U/L (17-59); Bilirubin,Total 0.8 mg/dL (0.2-1.3); Blood Urea Nitrogen 22 mg/dL (9-20); Calcium 8.8 mg/dL (8.4-10.2); Carbon Dioxide 27 mmol/L (22-30); Chloride 101 mmol/L (98-107); Estimated CRCL calculation 68 ml/min; Estimated Glomerular Filt Rate > 60; Glucose 107 mg/dL (65-110); Magnesium 2.2 mg/dL (1.6-2.3); Sodium 136 mmol/L (137-145)
[2024-11-08 05:44] LABS: INR 1.1; Prothrombin Time 14.3 Seconds (11.1-14.7)
[2024-11-08 05:45] LABS: Partial Thromboplastin Time 41.3 Seconds (22.3-36.8)
[2024-11-08] MEDS: HEPARIN SODIUM 5,000 UNITS/ML VIAL 7000 UNITS IV PUSH ×2 (06:05→19:47)
[2024-11-08] MEDS: HEPARIN SOD/D5W 100 UNITS/ML 25,000 UNITS/250 ML BAG 21 UNITS IV CONT ×2 (06:08→18:08)
[2024-11-08] MEDS: SPIRONOLACTONE 25 MG TABLET PO (09:03)
[2024-11-08] MEDS: SODIUM CHLORIDE 1 GM TABLET PO (09:03)
[2024-11-08] MEDS: buPROPion HCL XL (24 HR) 150 MG TABCR PO (09:03)
[2024-11-08] MEDS: SACUBITRIL/VALSARTAN 49-51 MG TABLET 1 TABLET PO ×2 (09:03→20:30)
[2024-11-08] MEDS: PARoxetine 20 MG TABLET 40 MG PO (09:03)
[2024-11-08] MEDS: EMPAGLIFLOZIN 10 MG TABLET PO (09:04)
[2024-11-08] MEDS: PARoxetine 10 MG TABLET PO (09:04)
[2024-11-08] MEDS: FUROSEMIDE INJ 40 MG/4 ML VIAL IV PUSH (09:05)
[2024-11-08 12:22] LABS: Partial Thromboplastin Time 83.8 Seconds (22.3-36.8)
--- NOTE | 2024-11-08 12:40 | PM.CNPUL ---
Assessment and Plan Assessment and plan (1) Pleural effusion: Code(s): J90 - Pleural effusion, not elsewhere classified Status: Acute Assessment and Plan: He had a large left hemothorax due to anticoagulation with warfarin for prosthetic mitral valve with a syncopal event 3 weeks ago, sustaining a traumatic injury to left ribs hitting side of a tub when he passed out. He did not immediately realize that he had injured himself. Over several weeks, he has been more short of breath. Yesterday, 1 L of old blood in the left pleural spaced was removed. This should not reaccumulate with his coagulation studies reversed. He (2) Dyspnea: Code(s): R06.00 - Dyspnea, unspecified Status: Acute Assessment and Plan: Short of breath is multifactorial; large left pleural effusion; 1 L removed yesterday. He had bloody lymphocytic fluid, this is due to the chronic hemothorax after his fall a few weeks ago and broken ribs. Repeat CXR. (3) History of tobacco abuse: Code(s): Z87.891 - Personal history of nicotine dependence Status: Acute Assessment and Plan: Smoked age 42 to 62, 20 years, highest 2 ppd, mostly 1.5 ppd, 30 pack years. None for almost 2 years. (4) Current every day vaping: Code(s): Z72.89 - Other problems related to lifestyle Status: Acute Assessment and Plan: Vapes all day long, nicotine. Vaping is not a safe or healthy alternative to smoking. We discussed benefits of not using any inhaled combustible products. (5) Ribs, multiple fractures: Code(s): S22.49XA - Multiple fractures of ribs, unspecified side, initial encounter for closed fracture Status: Acute Assessment and Plan: Left , , 9 notes on rib films. He had bleeding into the pleural spaced. He developed a slow accumulating hemothorax on the left, thoracentesis yesterday, 1000 mL removed with decreased in dyspnea. He may have rib pain for several months as this heals. Incentive spirometer my be helpful with compressive atelectasis, as well as the Cornet PEP valve. This pulmonoary hygiene will assist with airway clearance. Plan plan: Add COPD controller medications. Anoro one puff a day. This is a dual bronchodilator inhaler, one puff a day. He has daily symptoms, has limitations of daily activities. Albuterol can be used more often, now using 1-2 times a week. Cornet valve 10 exhalations QID to clear airway secretions. Incentive spirometer to assist with taking deep breaths, clearing secretions, improving pulmonary hygiene. PFTs in the future when he is out of hospital. He says he had PFTS in the last couple of years. May be time to repeat these. 6 Min walk before discharge. 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 He has had 20 years of smoking, at most 2 ppd, mostly less than that. He vapes all day, every day, nicotine. Needs to have tobacco cessation plan. Any type of combustion with inhalation into the respiratory tract is injurious. Avoid Benadryl in all OTC meds; diphenhydramine promotes dementia. Pulmonary rehab in the future. Anemia, orthostasis. He has passing out spells not infrequently. Had mild COVID, only once. It is possible that he has POTS, often seen after COVID. Anticoagulation = he had traumatic hemothorax due to rib fractures left side 7,8,9, after fall hitting left ribs. Repeat CXR tomorrow after 1 L thoracentesis. He has history of atrial fibrillation, could be worsened by untreated lung disease, alcohol. He had normal TSH in August. he can resume anticoagulation for his mechanical mitral valve 2020. He may be bale to bridge using sub-cutaneous Lovenox as his warfarin is adjusted. He can follow up after discharge. History of Present Illness History of Present Illness Consult date: 11/08/24 Requesting physician: Burak Cabrales MD Chief complaint: Hematuria, upper GI bleed, supratherapeutic INR, Narrative: pt was seen September 08, 18:20, Room 313 reason for consult: Left pleural effusion, shortness of breath, history of tobacco, current vaping NEW: Aly Starr is a 64-year-old man with large left pleural effusion, had thoracentesis yesterday November 07 with 1000 ml maroon fluid removed. Labs showed pH 7.4, rbc 960,000 and white blood cell count 2525 with 92% neutrophils. He is back on anticoagulation again for his mechanical mitral valve replacement, on a heparin drip while his warfarin is re-started with goal INR 2.5-3.5. He was diagnosed iwht COPD about a year ago, does not take any inhalers daily. He was admitted on November 01 with blood tinged urine. He was at Dr Mac's office at an office visit, came to ER by ambulance. His Protime was 128 seconds, INR 11, Na+ 132, H/H 9.2 grams/dL and 29.2%; next day H/H down to 7.8/24.3%. He received 2 units RBC, anticoagulation was reversed, Had thoracentesis with relief of some shortness of breath. He remains on room air. He tells me that he has wheezing at times, malu with exertion including remodeling his bedroom, carrying anything over 20 pounds, walking up 12-14 stairs; he can work about 20 min, stops and rest 5 minutes, has another 20 minutes of work, then rests for a few hours. He has a cough with small amounts of sputum, white, and wheezes with lying down to rest or with exertion. He has an albuterol inhaler that he uses only on occasion, at most 1-2 times per week. He does not think that this gives him relief. He had PFTs a few years ago, was a horrible experience, does not want to repeat. He rarely has a respiratory infection or worsening of his breathing. He does not have exacerbations of COPD. About 2-3 weeks ago, he had syncope in his garage after standing up, walking to the bathroom, getting up a passed out hitting his left rib on the side of the tub. He did not know at the time, but he broke several ribs on the left side, had pain, developed a huge ecchymosis on the left flank. He has had episodes of passing out showed me picture of this huge ecchymosis. In ER labs noted 2 point drop in hemoglobin, INR was high 11.1. His urine Urine grossly bloody and Digital Rectal exam for hemoccult was positive but noted brown stool on finger of ER provider. He has not have bleeding per rectum, no black or dark stool, no vomiting blood. he has not lost blood through his GI tract, but has had the large ecchymosis with the fall on the left thorax. he has been more short of breath since falling in the bathroom in the garage, hitting left ribs on the tub. Vitamin K 10 mg oral given in ER. 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 He was not in the . He was deemed disabled several years ago based on his severe arthritis with bilateral TKR. He drinks beer in his man cave which is down a spiral staircase. On some days, he consumes up to 10 beers on one calendar day. Tobacco: started smoking age 42, was as high as 2 ppd; stopped 2 years ago, now has edibles for marijuana to help him get to sleep. Cannot sleep without sleep aides, uses OTC sleep aides, describes something with Benadryl. He is encouraged not to use Benadryl containing compounds due to increased risk of dementia. He vapes all day, nicotine. He started this in the last 2 years with stopping smoking. As of today, he has been off cigarettes 699 days. His cigarettes are $10/pack, really expensive. He uses an blayne on his phone which calculates his savings without smoking. DATA * 11/07/24 CXR ; Sternal wires and mediastinal clips are identified, the wires are midline and intact. Annular ring projects in the mitral position. The remainder of the cardiomediastinal silhouette is otherwise unremarkable. Decreased left-sided pleural effusion when compared with previous examination. No left-sided pneumothorax is appreciated. Re-demonstration of left-sided lung fractures. IMPRESSION: Improved left-sided pleural effusion without left-sided pneumothorax following left-sided thoracentesis. * 11/01/2024 echo; Summary 1. Complete two-dimensional, color flow and Doppler transthoracic echocardiogram is performed. 2. Left ventricular chamber dimension is normal. 3. Left ventricular systolic function is normal, estimated at 60-65. 4. There is no increased left ventricular wall thickness. 5. The left ventricular diastolic function is indeterminate. 6. Left atrial chamber dimension is mildly enlarged. 7. There is mild aortic valve regurgitation. 8. There is moderate aortic valve sclerosis. 9. There is mild tricuspid valve regurgitation. 10. Mild pulmonary hypertension, estimated pulmonary arterial systolic pressure is 36 mmHg. 11. There is small pericardial effusion. 12. Pleural effusion noted. Review of Systems Review of Systems: All systems reviewed & are unremarkable except as noted in HPI and below [facility] Past Medical History Medical History (Updated 11/02/24 @ 13:28 by Tyree Cross MD) Gross hematuria Tachycardia Leukocytosis Anemia Hyponatremia Otitis media with effusion Orthostatic hypotension Pleural effusion Wheezing on right side of chest on exhalation Ribs, multiple fractures COPD (chronic obstructive pulmonary disease) GERD (gastroesophageal reflux disease) BPH (benign prostatic hyperplasia) Lipoma of back Periumbilical hernia Chronic cough Erectile dysfunction Acute wheezy bronchitis Esophagitis Screen for colon cancer Screening for prostate cancer BMI 25.0-25.9,adult Tobacco abuse disorder Anxiety Hypertension Osteoarthritis Surgical History Surgical History Heart valve replaced Status post left partial knee replacement 1999 History of total right knee replacement 2009 Family History Family History Father , 80 years old Dementia Atrial fibrillation Mother , 72 years old CHF (congestive heart failure) Sibling Obesity Diabetes mellitus Obstructive sleep apnea Social History Social History Social History: He lives in [facility] with his of 32 years. He retired in the early spring. 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 He started smoking at 45 years of age and has smoked between 1-1.5 packs per day. He drinks 2 or 3 beers several times a week. He uses 2 or 3 marijuana joints a week. He has 1 son and 1 daughter. The patient has 2 brothers and 2 sisters. His 1 brother is obese and has diabetes and obstructive sleep apnea. His remaining siblings are relatively healthy. Primary care physician: Dr. Kevin Mac Surrogate decision maker: Tierra Morejon () Smoking packs per day: 1 Smoking cigarettes per day: 20.0 Years smoked: 20 Smoking pack-years: 20.00 Smoking status: Former smoker Tobacco type: e-cigarettes/vaping Smoking end date: 04/22/20 Additional smoking assessment comments: CURRENTLY TRYING TO QUIT Alcohol intake: current Drinks per week: 30 Substance use: current Substance use type: marijuana Other substance usage details: COUPLE TIMES A WEEK AT MOST Last use: 10/26/24 Do You Feel Safe in your Home?: Yes Lack of Transportation: No Lack of Food: Never True Current Housing: I Have Housing Concerned About Future Housing: No Difficulty Paying Gas/Electric Bills: No Difficulty Paying for Meds: No Currently Unemployed: No Education: High School Diploma/GED Difficulty w/ Childcare or Family Care: No Living arrangements: with family Occupation/Education: retired 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 #30 tabs 07/26/24 10/31/24 Rx albuterol 90 mcg-budesonide 80 2 inh inhalation ONCE #5.9 grams 08/29/24 10/31/24 Rx mcg/actuation HFA aerosol inhaler (Airsupra) cyclobenzaprine 5 mg tablet 5 mg PO TID PRN muscle spasm #30 08/29/24 10/31/24 Rx tabs sodium chloride 1,000 mg soluble 1,000 mg PO DAILY #30 tabs 08/30/24 10/31/24 Rx tablet oxycodone-acetaminophen 10 mg-325 1 tablet PO TID PRN pain #90 tabs 08/31/24 10/31/24 Rx mg tablet warfarin 10 mg tablet 10 mg PO .COMPLEX #90 tabs 09/13/24 10/31/24 Rx bupropion HCl 150 mg 24 hr tablet, 150 mg PO QAM #90 tabs 09/15/24 10/31/24 Rx extended release spironolactone 25 mg tablet 25 mg PO DAILY #90 tabs 09/17/24 10/31/24 Rx empagliflozin 10 mg tablet 10 mg PO DAILY #90 tabs 10/13/24 10/31/24 Rx (Jardiance) paroxetine HCl 40 mg tablet 50 mg PO DAILY 10/31/24 10/31/24 History Allergies Allergy/AdvReac Type Severity Reaction Status Date / Time Penicillins Allergy Unknown Rash Verified 11/02/24 12:26 Vital Signs Vital Signs - 24 hr 11/07/24 14:00 11/07/24 16:00 11/07/24 20:00 Temperature 36.2 C L Pulse Rate 81 100 Respiratory Rate 16 Blood Pressure 110/76 Pulse Oximetry 97 Oxygen Delivery Room Air 11/07/24 20:00 11/07/24 21:35 11/08/24 00:00 Temperature 36.4 C L Pulse Rate 104 H 102 H 91 Respiratory Rate 18 Blood Pressure 108/73 Pulse Oximetry 97 Oxygen Delivery 11/08/24 04:00 11/08/24 05:31 11/08/24 08:00 Temperature 36.4 C L Pulse Rate 94 90 Respiratory Rate 16 Blood Pressure 106/70 Pulse Oximetry 94 Oxygen Delivery Room Air Exam Narrative: GEN: Alert, oriented, not in distress. He is on room air, saturation is 92-97 % on room air HEENT: pupils are equal, EOMI, symmetrical face; oral membranes moist, Mallampati III airway. He has a wheezy cough, sounds as if he has undertreated COPD. NECK: Trachea is midline CHEST: Equal air entry, symmetric excursion, clear breath sounds CV: Regular S1S2 no m/g/r- he sounds like he is on sinus rhythm ABD : (+) bowel sounds Extremities : no clubbing, cyanosis, or edema. No calf tenderness. PSYCH: normal thought and speech, gait is not tested. Results Laboratory Findings 11/08/24 05:14 11/08/24 05:14 ABG, PT/INR, D-dimer: PT/INR, D-dimer PT 14.3 Seconds (11.1-14.7) 11/08/24 05:14 INR 1.1 11/08/24 05:14 Abnormal lab findings: Abnormal Labs 10/31/24 10/31/24 10/31/24 17:24 20:18 20:55 WBC 11.0 H RBC 3.08 L Hgb 9.2 L D Hct 29.2 L MCV MCHC 31.5 L RDW 15.5 H Plt Count 399 H Immature Gran % (Auto) Neut % (Auto) 80.6 H Lymph % (Auto) 7.2 L [place] % (Auto) 10.8 H Eos % (Auto) Lymph # (Auto) 0.80 L [place] # (Auto) 1.2 H Eos # (Auto) Abs Immat Gran (auto) 0.06 H Absolute Neuts (auto) 8.9 H Absolute Retic Immature Retic Fraction PT 87.2 H INR 11.1 H* APTT 128.4 H Sodium 132 L Chloride Carbon Dioxide 21 L BUN Glucose Sumaya Transferrin Receptr AST Lactate Dehydrogenase Albumin Jsmjj-7-Cvdsleofr Urine Color Dark red H Urine Appearance Turbid H Urine Protein 2+ H Urine Glucose (UA) 3+ H Urine Ketones 2+ H Ur Blood (Man) 3+ H Urine Bilirubin 1+ H Urine RBC >100 H Pleural RBC Pleural Nuc Cells Crossmatch See Detail 10/31/24 11/01/24 11/01/24 22:57 02:50 06:08 WBC RBC 2.90 L Hgb 8.5 L 7.8 L 8.7 L Hct 27.5 L 24.3 L 27.0 L MCV MCHC RDW 15.8 H Plt Count Immature Gran % (Auto) 0.9 H Neut % (Auto) Lymph % (Auto) 15.0 L [place] % (Auto) 12.2 H Eos % (Auto) Lymph # (Auto) [place] # (Auto) 1.1 H Eos # (Auto) Abs Immat Gran (auto) 0.08 H Absolute Neuts (auto) Absolute Retic Immature Retic Fraction PT 24.7 H D INR APTT Sodium 134 L Chloride 96 L Carbon Dioxide BUN Glucose Sumaya Transferrin Receptr AST 62 H Lactate Dehydrogenase Albumin Xhiwr-5-Wylcbflby Urine Color Urine Appearance Urine Protein Urine Glucose (UA) Urine Ketones Ur Blood (Man) Urine Bilirubin Urine RBC Pleural RBC Pleural Nuc Cells Crossmatch 11/01/24 11/01/24 11/02/24 07:48 18:24 04:51 WBC 10.5 H RBC 3.16 L 3.07 L Hgb 8.8 L 9.4 L 9.2 L Hct 28.4 L 30.6 L 29.5 L MCV MCHC 30.7 L 31.2 L RDW 16.1 H 16.3 H Plt Count 395 H Immature Gran % (Auto) 1.0 H 0.7 H Neut % (Auto) 73.9 H Lymph % (Auto) 10.6 L 11.6 L [place] % (Auto) 12.7 H 12.5 H Eos % (Auto) Lymph # (Auto) [place] # (Auto) 1.3 H 1.1 H Eos # (Auto) Abs Immat Gran (auto) 0.10 H 0.06 H Absolute Neuts (auto) 7.8 H Absolute Retic Immature Retic Fraction PT 31.0 H D 35.7 H INR APTT 67.4 H Sodium 131 L Chloride 96 L Carbon Dioxide BUN Glucose 126 H Sumaya Transferrin Receptr AST Lactate Dehydrogenase Albumin Uovwm-8-Wsfpgjpol Urine Color Urine Appearance Urine Protein Urine Glucose (UA) Urine Ketones Ur Blood (Man) Urine Bilirubin Urine RBC Pleural RBC Pleural Nuc Cells Crossmatch 11/02/24 11/02/24 11/03/24 14:54 21:56 00:54 WBC 10.8 H RBC 3.10 L Hgb 9.2 L Hct 29.6 L MCV MCHC 31.1 L RDW 16.6 H Plt Count 400 H Immature Gran % (Auto) 0.6 H Neut % (Auto) 81.9 H Lymph % (Auto) 6.4 L [place] % (Auto) 9.7 H Eos % (Auto) Lymph # (Auto) 0.69 L [place] # (Auto) 1.0 H Eos # (Auto) Abs Immat Gran (auto) 0.06 H Absolute Neuts (auto) 8.8 H Absolute Retic 0.11 H Immature Retic Fraction 37.5 H PT 37.7 H 37.7 H INR APTT 192.6 H* 65.3 H Sodium Chloride Carbon Dioxide BUN Glucose Sumaya Transferrin Receptr 1.77 H AST Lactate Dehydrogenase 264 H Albumin 3.7 L Mfhyj-5-Rpmwvytfb 0.4 H Urine Color Urine Appearance Urine Protein Urine Glucose (UA) Urine Ketones Ur Blood (Man) Urine Bilirubin Urine RBC Pleural RBC Pleural Nuc Cells Crossmatch 11/03/24 11/03/24 11/03/24 07:44 15:58 23:03 WBC RBC 2.87 L Hgb 8.7 L Hct 27.9 L MCV MCHC 31.2 L RDW 16.3 H Plt Count 389 H Immature Gran % (Auto) Neut % (Auto) Lymph % (Auto) 12.8 L [place] % (Auto) 11.6 H Eos % (Auto) Lymph # (Auto) [place] # (Auto) 1.0 H Eos # (Auto) Abs Immat Gran (auto) 0.04 H Absolute Neuts (auto) Absolute Retic Immature Retic Fraction PT 27.9 H D INR APTT 61.7 H 67.6 H 158.5 H Sodium 135 L Chloride Carbon Dioxide BUN Glucose Sumaya Transferrin Receptr AST Lactate Dehydrogenase Albumin Dyeom-7-Rdaedddrh Urine Color Urine Appearance Urine Protein Urine Glucose (UA) Urine Ketones Ur Blood (Man) Urine Bilirubin Urine RBC Pleural RBC Pleural Nuc Cells Crossmatch 11/04/24 11/04/24 11/04/24 08:02 11:58 15:03 WBC RBC 2.92 L Hgb 8.9 L Hct 28.5 L MCV MCHC 31.2 L RDW 16.8 H Plt Count Immature Gran % (Auto) 0.7 H Neut % (Auto) Lymph % (Auto) 11.1 L [place] % (Auto) 9.3 H Eos % (Auto) 5.2 H Lymph # (Auto) [place] # (Auto) 0.8 H Eos # (Auto) 0.4 H Abs Immat Gran (auto) 0.06 H Absolute Neuts (auto) Absolute Retic Immature Retic Fraction PT 22.1 H D 20.2 H INR APTT 65.9 H 53.7 H Sodium Chloride Carbon Dioxide BUN Glucose 143 H Sumaya Transferrin Receptr AST Lactate Dehydrogenase Albumin Erfnn-5-Qteclacbi Urine Color Urine Appearance Urine Protein Urine Glucose (UA) Urine Ketones Ur Blood (Man) Urine Bilirubin Urine RBC Pleural RBC Pleural Nuc Cells Crossmatch 11/04/24 11/05/24 11/05/24 21:49 05:27 05:28 WBC RBC 2.96 L Hgb 9.1 L Hct 29.2 L MCV MCHC 31.2 L RDW 17.1 H Plt Count 382 H Immature Gran % (Auto) 0.8 H Neut % (Auto) Lymph % (Auto) [place] % (Auto) 11.9 H Eos % (Auto) 6.0 H Lymph # (Auto) [place] # (Auto) 1.0 H Eos # (Auto) 0.5 H Abs Immat Gran (auto) 0.07 H Absolute Neuts (auto) Absolute Retic Immature Retic Fraction PT 18.4 H INR APTT 149.4 H 53.4 H Sodium 136 L Chloride Carbon Dioxide BUN Glucose [place]aya Transferrin Receptr AST Lactate Dehydrogenase Albumin Uaeuf-6-Fvsxcptzk Urine Color Urine Appearance Urine Protein Urine Glucose (UA) Urine Ketones Ur Blood (Man) Urine Bilirubin Urine RBC Pleural RBC Pleural Nuc Cells Crossmatch 11/05/24 11/05/24 11/06/24 12:50 19:41 02:54 WBC RBC 3.08 L Hgb 9.4 L Hct 30.6 L MCV MCHC 30.7 L RDW 17.2 H Plt Count 411 H Immature Gran % (Auto) 1.0 H Neut % (Auto) Lymph % (Auto) [place] % (Auto) 12.9 H Eos % (Auto) 5.2 H Lymph # (Auto) [place] # (Auto) 1.2 H Eos # (Auto) 0.5 H Abs Immat Gran (auto) 0.09 H Absolute Neuts (auto) Absolute Retic Immature Retic Fraction PT 15.9 H INR APTT 125.1 H 48.3 H 172.2 H* Sodium Chloride Carbon Dioxide BUN Glucose Sumaya Transferrin Receptr AST Lactate Dehydrogenase Albumin Kkckt-4-Epirepmei Urine Color Urine Appearance Urine Protein Urine Glucose (UA) Urine Ketones Ur Blood (Man) Urine Bilirubin Urine RBC Pleural RBC Pleural Nuc Cells Crossmatch 11/06/24 11/06/24 11/06/24 10:48 17:37 22:49 WBC RBC Hgb Hct MCV MCHC RDW Plt Count Immature Gran % (Auto) Neut % (Auto) Lymph % (Auto) [place] % (Auto) Eos % (Auto) Lymph # (Auto) [place] # (Auto) Eos # (Auto) Abs Immat Gran (auto) Absolute Neuts (auto) Absolute Retic Immature Retic Fraction PT INR APTT 56.8 H 89.7 H 81.0 H Sodium Chloride Carbon Dioxide BUN Glucose Sumaya Transferrin Receptr AST Lactate Dehydrogenase Albumin Fwizc-5-Bwpvjmqkg Urine Color Urine Appearance Urine Protein Urine Glucose (UA) Urine Ketones Ur Blood (Man) Urine Bilirubin Urine RBC Pleural RBC Pleural Nuc Cells Crossmatch 11/07/24 11/07/24 11/08/24 05:38 11:41 05:14 WBC 10.2 H RBC 3.19 L 3.37 L Hgb 9.7 L 10.2 L Hct 32.1 L 33.2 L MCV 100.6 H MCHC 30.2 L 30.7 L RDW 17.2 H 17.2 H Plt Count 448 H 445 H Immature Gran % (Auto) 1.5 H 0.8 H Neut % (Auto) Lymph % (Auto) 14.2 L [place] % (Auto) 13.0 H 12.1 H Eos % (Auto) 6.4 H 4.7 H Lymph # (Auto) [place] # (Auto) 1.0 H 1.2 H Eos # (Auto) 0.5 H 0.5 H Abs Immat Gran (auto) 0.12 H 0.08 H Absolute Neuts (auto) 6.9 H Absolute Retic Immature Retic Fraction PT INR APTT 41.3 H Sodium 136 L 136 L Chloride Carbon Dioxide 31 H BUN 22 H Glucose Sumaya Transferrin Receptr AST Lactate Dehydrogenase Albumin Wccgw-7-Fniozgonx Urine Color Urine Appearance Urine Protein Urine Glucose (UA) Urine Ketones Ur Blood (Man) Urine Bilirubin Urine RBC Pleural RBC [id number] H Pleural Nuc Cells 2525 H Crossmatch 11/08/24 11:56 WBC RBC Hgb Hct MCV MCHC RDW Plt Count Immature Gran % (Auto) Neut % (Auto) Lymph % (Auto) [place] % (Auto) Eos % (Auto) Lymph # (Auto) [place] # (Auto) Eos # (Auto) Abs Immat Gran (auto) Absolute Neuts (auto) Absolute Retic Immature Retic Fraction PT INR APTT 83.8 H Sodium Chloride Carbon Dioxide BUN Glucose [place] Transferrin Receptr AST Lactate Dehydrogenase Albumin Urjdx-5-Wducujjsq Urine Color Urine Appearance Urine Protein Urine Glucose (UA) Urine Ketones Ur Blood (Man) Urine Bilirubin Urine RBC Pleural RBC Pleural Nuc Cells Crossmatch
[2024-11-08 16:30] LABS: Amylase 91 U/L (30-110); Cholesterol 140 mg/dL (0-200); Triglycerides 90 mg/dL (<150)
--- NOTE | 2024-11-08 16:54 | PM.IMPN ---
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 -Did not use K-Centra as current bleeding is not life threatening and we don't want to overcorrect INR if at all possible -Occult positive stool and gross hematuria present -Vitamin K 10 mg oral given in ER -On admit decided to give 2 units FFP and recheck INR after transfusion -Check H&H or CBC every 4 hours and transfuse PRBCs if drops below 8 and bleeding still present -GI consult as below (2) Hematuria: Code(s): R31.9 - Hematuria, unspecified Status: Acute Assessment and Plan: -Gross hematuria noted on my exam of output -Started 2 days ago -Patient continued warfarin dosing despite hematuria -warfarin now held as above -Goal INR 2.5-3.5 due to mechanical heart valve -Consider abd/pelvis CT scan and/or consult to Urology if this continues after INR improvement (3) Atrial fibrillation with rapid ventricular response: Code(s): I48.91 - Unspecified atrial fibrillation Status: Acute Assessment and Plan: -History a-fib and tachy dysrhythmia noted at PCP office -Patient [place] [facility] [place] may need tele if downgraded after more medically stable (4) Acute upper GI bleed: Code(s): K92.2 - Gastrointestinal hemorrhage, unspecified Status: Acute Assessment and Plan: -Hemoccult positive -History of esophagitis -Pantoprazole 80 mg IV in ER and ordered 40 mg Q12HR to start in AM -GI consulted -Patient was NPO after midnight in case GI wants to go for EGD in the morning -Will want INR improved first (5) Pleural effusion: Code(s): J90 - Pleural effusion, not elsewhere classified Status: Acute Assessment and Plan: -Large left pleural effusion present on imaging -Dyspnea on exertion worsening over past couple weeks likely combination pleural effusion and anemia -Recent broken ribs, possible for this to be partial hemothorax -Not currently requiring oxygen -Order Echocardiogram to assess heart failure status (6) Hypertension: Qualifiers: Hypertension type: essential hypertension Qualified Code(s): I10 - Essential (primary) hypertension Code(s): I10 - Essential (primary) hypertension Status: Acute Assessment and Plan: -BP on softer side -Resume home medications, hold if hypotension develops (7) Mechanical heart valve present: Code(s): Z95.2 - Presence of prosthetic heart valve Status: Acute Assessment and Plan: -See above (8) Tobacco use: Code(s): Z72.0 - Tobacco use Status: Acute Assessment and Plan: -Former smoker, current vape user -Consider nicotine patch if symptoms of withdrawal Plan patient with chronic anticoagulation with warfarin for mechanical valve with INR range of 2.5-3.5. Upon arrival patient INR was 11 with c/o hematuria, and dyspnea on exertion. 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 will dc furosemide, discussed with Dr. Cordova consult who review labs pleural fluids and suspect patient may malignancy, further recommendation to follow. Subjective Date/time seen: 11/08/24 16:54 Interval history: Hematuria, dyspnea on exertion Narrative: This is a 64 year old male patient who complained of hematuria for 2 days and dyspnea on exertion for about a week. Today patient went to see primary care provider in the office regarding his symptoms. PCP thought patient may have urine infection causing hematuria. Patient became significantly tachycardic with minor activity in the office. EKG obtained and EMS called to transport patient to the ER. Patient stated he didn't want to go by EMS but was dizzy so he agreed. Patient has past history of mechanical aortic valve replacement and is on warfarin with goal INR 2.5-3.5. In ER labs noted 2 point drop in hemoglobin from last on record. Additionally, INR noted to be 11.1. Urine grossly bloody and Digital Rectal exam for hemoccult was positive but noted brown stool on finger of ER provider. No melena, BRBPR or hematemesis reported. Patient denies any nose, mouth/gum bleeding or abnormal bruising. He notes dyspnea has slowly worsened over a few weeks since injuring left ribs. Vitamin K 10 mg oral given in ER. On admit we decided to give 2 units of FFP. Repeat Hemoglobin had dropped from 9.2 to 8.5 and will be rechecked again by morning. Will transfuse RBCs if drops below 8. GI consulted for evaluation. patient with chronic anticoagulation with warfarin for mechanical valve with INR range of 2.5-3.5. Upon arrival patient INR was 11 with c/o hematuria, and dyspnea on exertion. 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 will dc furosemide, discussed with Dr. Cordova consult who review labs pleural fluids and suspect patient may malignancy, further recommendation to follow. Review of Systems Review of Systems: Denies fever, chills or chest pain. All systems reviewed & are unremarkable except as noted in HPI and below Exam Narrative: Patient is comfortable, NAD HEENT: eyes are clear and none icteric LUNGS:CTA HEART: RR S1S2 ABD: BS+, Soft and nontender Lower extremities: no edema SKIN: nonjaundiced Neuro: grossly intact. Objective Data Vital Signs Vital Signs: Vital Signs - 24 hr 11/07/24 20:00 11/07/24 20:00 11/07/24 21:35 Temperature 36.4 C L Pulse Rate 104 H 102 H Respiratory Rate 18 Blood Pressure 108/73 Pulse Oximetry 97 Oxygen Delivery Room Air 11/08/24 00:00 11/08/24 04:00 11/08/24 05:31 Temperature 36.4 C L Pulse Rate 91 94 90 Respiratory Rate 16 Blood Pressure 106/70 Pulse Oximetry 94 Oxygen Delivery 11/08/24 08:00 11/08/24 14:00 Temperature 36.5 C Pulse Rate 94 Respiratory Rate 18 Blood Pressure 100/71 Pulse Oximetry 97 Oxygen Delivery Room Air Intake/Output Intake/Output: Intake & Output 11/05/24 11/06/24 11/07/24 11/08/24 23:59 23:59 23:59 23:59 Intake Total 1114.5 1450.4 933.6 333.3 Output Total 6342 833 7014 Balance -860.5 1000.4 -1816.4 333.3 Meds/Results Medications: Active Medications Generic Name Dose Route Start Last Admin Trade Name Freq PRN Reason Stop Dose Admin Albuterol/Ipratropium 3 ml 10/31/24 22:31 10/31/24 22:59 Ipratropium 0.5 Mg/Albuterol Sulfate 2.5 Mg Ampul.Neb 3 Ml INHALATION 3 ml Q6HRT PRN Administration Shortness Of Breath Or Wheezing Bupropion HCl 150 mg 11/01/24 09:00 11/08/24 09:03 Bupropion Hcl Xl (24 Hr) 150 Mg Tabcr PO 150 mg QAM TERRY Administration Cyclobenzaprine HCl 5 mg 10/31/24 22:38 11/06/24 21:15 Cyclobenzaprine Hcl 5 Mg Tablet PO 5 mg TID PRN Administration muscle spasm Empagliflozin 10 mg 11/01/24 09:00 11/08/24 09:04 Empagliflozin 10 Mg Tablet PO 10 mg DAILY TERRY Administration Furosemide 40 mg 11/04/24 15:30 11/08/24 09:05 Furosemide Inj 40 Mg/4 Ml Vial IV PUSH 40 mg DAILY TERRY Administration Heparin Sodium (Porcine) 7,000 units 11/02/24 14:42 11/08/24 06:05 Heparin Sodium 5,000 Units/Ml Vial IV PUSH 7,000 units PRN PRN Administration aPTT less than 55 seconds Heparin Sodium (Porcine) 3,500 units 11/02/24 14:42 11/06/24 11:36 Heparin Sodium 5,000 Units/Ml Vial IV PUSH 3,500 units PRN PRN Administration aPTT 55 - 70 seconds Heparin Sodium/Dextrose 25,000 units in 250 mls @ 21 mls/hr 11/08/24 00:00 11/08/24 06:08 Heparin Sodium/D5w 100 Units/Ml IV CONT 2,100 units/hr .[id number] TERRY 21 mls/hr Administration Protocol 2,100 UNITS/HR Oxycodone/Acetaminophen 1 tab 10/31/24 22:31 11/06/24 21:15 Oxycodone/Acetaminophen (*Crx) 10-325 Mg Tablet PO 1 tab TID PRN Administration pain 7-10 Paroxetine HCl 40 mg 11/01/24 09:00 11/08/24 09:03 Paroxetine 20 Mg Tablet PO 40 mg QAM TERRY Administration Paroxetine HCl 10 mg 11/01/24 09:00 11/08/24 09:04 Paroxetine 10 Mg Tablet PO 10 mg QAM TERRY Administration Sacubitril/Valsartan 1 tablet 10/31/24 22:50 11/08/24 09:03 Sacubitril/Valsartan 49-51 Mg Tablet PO 1 tablet Q12HR TERRY Administration Sodium Chloride 1 gm 11/01/24 09:00 11/08/24 09:03 Sodium Chloride 1 Gm Tablet PO 1 gm DAILY TERRY Administration Sodium Chloride 6 ml 11/08/24 05:00 11/08/24 14:25 Sodium Chlor 3% 15 Ml Neb (Respiratory Therapy) INHALATION 11/10/24 05:01 Not Given DAILY@0500 TERRY Spironolactone 25 mg 11/01/24 09:00 11/08/24 09:03 Spironolactone 25 Mg Tablet PO 25 mg DAILY TERRY Administration Warfarin Sodium 2 mg/ Warfarin 7 mg 11/07/24 21:00 11/07/24 20:39 Sodium 5 mg PO 7 mg DAILY@1700 COUNT INCLUDES THE [facility] Administration Radiology Results: ITS Impressions Chest CT 10/31/24 19:17 IMPRESSION: Large left-sided pleural effusion with adjacent compressive atelectasis, unchanged from plain film evaluation performed approximately 90 minutes earlier ADDENDUM: 11/07/24 1223 Redemonstration of acute minimally displaced fractures of the left seventh through ninth ribs. Chest X-Ray 11/07/24 12:16 IMPRESSION: Improved left-sided pleural effusion without left-sided pneumothorax following left-sided thoracentesis. Thoracentesis Ultrasound 11/07/24 12:49 IMPRESSION: 1. Successful ultrasound-guided thoracentesis yielding 1000 mL of dark maroon-colored fluid. Labs Labs: Laboratory Results - last 24 hr 11/02/24 11/07/24 11/08/24 21:56 19:06 05:14 WBC 10.2 H RBC 3.37 L Hgb 10.2 L Hct 33.2 L MCV 98.5 MCH 30.3 MCHC 30.7 L RDW 17.2 H Plt Count 445 H MPV 8.7 Immature Gran % (Auto) 0.8 H Neut % (Auto) 67.3 Lymph % (Auto) 14.2 L Collin % (Auto) 12.1 H Eos % (Auto) 4.7 H Baso % (Auto) 0.9 Lymph # (Auto) 1.45 Collin # (Auto) 1.2 H Eos # (Auto) 0.5 H Baso # (Auto) 0.1 Abs Immat Gran (auto) 0.08 H Absolute Neuts (auto) 6.9 H Absolute Nucleated RBC 0.000 Nucleated RBC % 0.0 PT 14.3 INR 1.1 APTT 27.6 41.3 H Sodium 136 L Potassium 4.0 Chloride 101 Carbon Dioxide 27 Anion Gap 8 BUN 22 H Creatinine 1.13 Estim Creat Clear Calc 68 Estimated GFR > 60 Glucose 107 Calcium 8.8 Magnesium 2.2 Total Bilirubin 0.8 AST 40 ALT 39 Alkaline Phosphatase 73 Total Protein 7.0 Albumin 3.7 L 3.8 Woefz-0-Ebigjgodo 0.4 H Piuqk-2-Rnvnpbyrg 0.5 Qyxm-0-Btrnnhtb 0.5 Fksj-2-Kpwsdzkc 0.5 Gamma Globulins 1.1 PEP Interpretation See note Triglycerides 90 Cholesterol 140 Amylase 91 11/08/24 11:56 WBC RBC Hgb Hct MCV MCH MCHC RDW Plt Count MPV Immature Gran % (Auto) Neut % (Auto) Lymph % (Auto) Collin % (Auto) Eos % (Auto) Baso % (Auto) Lymph # (Auto) Collin # (Auto) Eos # (Auto) Baso # (Auto) Abs Immat Gran (auto) Absolute Neuts (auto) Absolute Nucleated RBC Nucleated RBC % PT INR APTT 83.8 H Sodium Potassium Chloride Carbon Dioxide Anion Gap BUN Creatinine Estim Creat Clear Calc Estimated GFR Glucose Calcium Magnesium Total Bilirubin AST ALT Alkaline Phosphatase Total Protein Albumin Bcnxi-4-Goxiizbvs Ycryj-1-Opeqlfgjs Nxtl-2-Falfdsxe Yiwq-3-Vcammrzf Gamma Globulins PEP Interpretation Triglycerides Cholesterol Amylase
[2024-11-08] MEDS: WARFARIN (*PBKC) 2 MG, WARFARIN (*PBKC) 5 MG 7 MG PO (18:03)
[2024-11-08] MEDS: oxyCODONE/ACETAMINOPHEN (*CRX) 10-325 MG TABLET 1 TAB PO (18:03)
[2024-11-08] MEDS: CYCLOBENZAPRINE HCL 5 MG TABLET PO (18:03)
[2024-11-09] VITALS (8 sets, daily range): BP systolic 110–117; BP diastolic 75–77; PULSE 88–98; RESP 16–20; TEMP 36.2; O2SAT 92–95
[2024-11-09 01:59] LABS: Partial Thromboplastin Time > 200.0 Seconds (22.3-36.8)
[2024-11-09] MEDS: HEPARIN SOD/D5W 100 UNITS/ML 25,000 UNITS/250 ML BAG 22 UNITS IV CONT ×2 (03:13→07:43)
[2024-11-09] MEDS: UMECLIDINIUM/VILANTEROL 62.5-25 MCG ELLIPTA 1 PUFF INHALATION (09:06)
[2024-11-09] MEDS: SPIRONOLACTONE 25 MG TABLET PO (09:33)
[2024-11-09] MEDS: PARoxetine 10 MG TABLET PO (09:33)
[2024-11-09] MEDS: PARoxetine 20 MG TABLET 40 MG PO (09:33)
[2024-11-09] MEDS: SODIUM CHLORIDE 1 GM TABLET PO (09:33)
[2024-11-09] MEDS: SACUBITRIL/VALSARTAN 49-51 MG TABLET 1 TABLET PO (09:33)
[2024-11-09] MEDS: EMPAGLIFLOZIN 10 MG TABLET PO (09:33)
[2024-11-09] MEDS: FUROSEMIDE INJ 40 MG/4 ML VIAL IV PUSH (09:33)
[2024-11-09] MEDS: buPROPion HCL XL (24 HR) 150 MG TABCR PO (09:33)
[2024-11-09 09:59] LABS: Basophils Absolute Auto 0.1 K/mm3 (0.0-0.1); Basophils Percent Auto 0.8 % (0.2-1.2); Eosinophils Absolute Auto 0.6 K/mm3 (0-0.3); Eosinophils Percent Auto 5.8 % (0-4.4); Hematocrit 34.4 % (42.0-52.0); Hemoglobin 10.6 g/dL (14.0-18.0); Immature Granulocyte Absolute 0.07 K/mm3 (0.00-0.031); Immature Granulocyte Percent A 0.7 % (0-0.5); Lymphocytes Absolute Auto 1.51 K/mm3 (0.9-3.2); Lymphocytes Percent Auto 15.2 % (18.3-44.2); Mean Corpuscular HGB Conc 30.8 g/dl (32-36); Mean Corpuscular Hemoglobin 30.7 pg (26-34); Mean Corpuscular Volume 99.7 fl (80-100); Monocytes Absolute Auto 1.1 K/mm3 (0.1-0.6); Neutrophils Absolute Auto 6.6 K/mm3 (1.3-6.7); Neutrophils Percent Auto 66.5 % (45.5-73.1); Platelet Count Result 432 k/mm3 (150-375); Red Blood Count 3.45 M/mm3 (4.6-6.20); White Blood Count 9.9 K/mm3 (4.5-10.0)
[2024-11-09 10:16] LABS: INR 1.1; Prothrombin Time 14.4 Seconds (11.1-14.7)
[2024-11-09 10:18] LABS: Partial Thromboplastin Time 99.4 Seconds (22.3-36.8)
--- NOTE | 2024-11-09 10:37 | PCNWS ---
Weekly nutritional screen. Patient is tolerating current regular diet with adequate intake 75-100%. No weight loss reported. No nutritional needs at this time.
--- NOTE | 2024-11-09 12:59 | PM.PNPUL ---
Progress Note: A&P Assessment and Plan (1) Pleural effusion: Code(s): J90 - Pleural effusion, not elsewhere classified Status: Acute Assessment and Plan: He had a large left hemothorax due to anticoagulation with warfarin for prosthetic mitral valve and atrial fib with a syncopal event 3 weeks ago, sustaining a traumatic injury to left ribs hitting side of a tub when he passed out. He broke left ribs 7-9, did not immediately realize that he had injured himself. Over several weeks, he has been more short of breath. November 07, 1 L of old blood in the left pleural spaced was removed. He has mild reaccumulation on heparin drip. He is transitioning to lovenox and back to coumadin. (2) Dyspnea: Code(s): R06.00 - Dyspnea, unspecified Status: Acute Assessment and Plan: Better compared to admission. His shortness of breath is multifactorial; large left pleural effusion; 1 L removed November 07, anemia. Untreated COPD. He had bloody lymphocytic fluid, this is due to the chronic hemothorax after his fall a few weeks ago and broken ribs. I do not think that the pleural fluid represents malignancy in the setting of chest trauma. Repeat CXR today November 09 shows a much smaller pleural effusion. (3) History of tobacco abuse: Code(s): Z87.891 - Personal history of nicotine dependence Status: Acute Assessment and Plan: Smoked age 42 to 62, 20 years, highest 2 ppd, mostly 1.5 ppd, 30 pack years. None for almost 2 years. (4) Current every day vaping: Code(s): Z72.89 - Other problems related to lifestyle Status: Acute Assessment and Plan: Vapes all day long, nicotine. Vaping is not a safe or healthy alternative to smoking. We discussed benefits of not using any inhaled combustible products. (5) Ribs, multiple fractures: Code(s): S22.49XA - Multiple fractures of ribs, unspecified side, initial encounter for closed fracture Status: Acute Assessment and Plan: Left 7th, 8th, 9th notes on rib films. He had bleeding into the pleural space aggravated by Coumadin. He developed a slow accumulating hemothorax on the left, thoracentesis May removed 1000 mL maroon fluid removed with decreased in dyspnea. He may have rib pain for several months as this heals. Incentive spirometer my be helpful with compressive atelectasis, as well as the Cornet PEP valve. This pulmonary hygiene will assist with airway clearance. (6) COPD (chronic obstructive pulmonary disease): Code(s): J44.9 - Chronic obstructive pulmonary disease, unspecified Status: Acute Assessment and Plan: He is not treated for COPD at home, only albuterol. He is often short of breath. Started Anoro today, one puff a day. I want him to go home on this, albuterol 1 puff Q 4 hours prn shortness of breath or wheezing. PFTs in several weeks. He has had PFTs in the past, said that these were33 really hard, does not want to repeat. He needs new evaluation. Plan plan: He is stable for discharge today. He had one dose of Anoro today, not enough to determine if he is going to feel better using it. He has albuterol inhalers at home. Cornet valve 10 exhalations QID to clear airway secretions. This can be used at home as needed. He is on the 3rd setting, used this earlier today and was able to expectorate sputum in a container, sent to the lab. He has had 20 years of smoking, at most 2 ppd, mostly less than that. He vapes all day, every day, nicotine. Needs to have tobacco cessation plan. Any type of combustion with inhalation into the respiratory tract is injurious. Consider Pulmonary rehab in the future. Avoid Benadryl in all OTC meds; diphenhydramine promotes dementia. He is stable to go home on Anoro one puff a day, a new medication. This may need a Prior Auth. medications: Anoro ONE puff daily. Albuterol 90 mcg/puff, 1-2 puffs Q 4 hours p.r.n. shortness of breath. Pulmonary office visit in 1 month; he needs to have PFT, 6MW, alpha-1 testing, repeat imaging to assure that there is nothing under the effusion and atelectasis. CXR PA and lat in a week. Subjective Date/time seen: 11/09/24 12:59 Interval history: 11/09/24 follow up visit: He is sitting in bed, finished lunch. He did not sleep at all last night, none. He is trying to rest today. He has used his Cornet PEP valve, a few exhalations, expectorated yellowish thick sputum. Gram stain today showed no WBC, a few organisms, mixed minesh. Pleural fluid Gram stain 11/07 showed few WBC, no organisms, AFB stain is negative, culture will take 6 weeks. CXR today 11/09 : IMPRESSION: Small left-sided pleural effusion only minimally increased from the previous examination performed following thoracentesis on 11/07/2024. He is on IV heparin now for his mechanical mitral valve, getting ready to transition to Lovenox before Coumadin as his normal oral anticoagulant. 11/08/24; new consult; Aly Starr is a 64-year-old man with large left pleural effusion, had thoracentesis yesterday November 07 with 1000 ml maroon fluid removed. Labs showed pH 7.4,normal; rbc 960,000 - very high number of RBC; white blood cell count 2525 with 92% neutrophils. This WBC is slightly above the normal range, ok in the setting of all the RBC. He is back on anticoagulation again for his mechanical mitral valve replacement and he has atrial fibrillation, now on a heparin drip while his warfarin is re-started with goal INR 2.5-3.5. He was diagnosed with COPD about a year ago, does not take any inhalers daily. He was admitted on November 01 with blood tinged urine. He was at Dr Mac's office at an office visit, came to ER by ambulance. His Protime was 128 seconds, INR 11, Na+ 132, H/H 9.2 grams/dL and 29.2%; next day H/H down to 7.8/24.3%. He received 2 units RBC, anticoagulation was reversed, Had thoracentesis with relief of some shortness of breath. He remains on room air. He tells me that he has wheezing at times, malu with exertion including remodeling his bedroom, carrying anything over 20 pounds, walking up 12-14 stairs; he can work about 20 min, stops and rest 5 minutes, has another 20 minutes of work, then rests for a few hours. He has a cough with small amounts of sputum, white, and wheezes with lying down to rest or with exertion. He has an albuterol inhaler that he uses only on occasion, at most 1-2 times per week. He does not think that this gives him relief. He had PFTs a few years ago, was a horrible experience, does not want to repeat. He rarely has a respiratory infection or worsening of his breathing. He does not have exacerbations of COPD. About 2-3 weeks ago, he had syncope in his garage after standing up, walking to the bathroom and using the toilet, getting up then felt dizzy, passed out, hitting his left rib on the side of the tub. He did not know at the time, but he broke several ribs on the left side, had pain, developed a huge ecchymosis on the left flank which is now gone. He has had these episodes of passing out in the past, BP shows orthostatic drops in pressure with standing. He showed me pictures on his phone with extensive ecchymosis on the left lateral chest after this happened, and now his chest is normal. I see no ecchymosis now. In ER, he had INR elevation 11.1, PTT was 128 seconds. His urine was grossly bloody, rectal exam for hemoccult was positive. He has not lost blood from GI tract, no black or dark stool, no vomiting blood. He has blood in the urine. The large ecchymosis on the left lateral chest and large left pleural effusion from the fall on the side of the tib with rib fractures seems to explain the drop in blood count. He has been more short of breath since falling in the bathroom in the garage, hitting left ribs on the tub. He was treated with FFP and Vitamin K 10 mg oral given in ER. 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 He was not in the . He was deemed disabled several years ago based on his severe arthritis with bilateral TKR. He drinks beer in his man cave which is down a spiral staircase. On some days, he consumes up to 10 beers on one calendar day. Tobacco: started smoking age 42, was as high as 2 ppd; stopped 2 years ago, now has edibles for marijuana to help him get to sleep. Cannot sleep without sleep aides, uses OTC sleep aides, describes something with Benadryl. He is encouraged not to use Benadryl containing compounds due to increased risk of dementia. He vapes all day, nicotine. He started this in the last 2 years with stopping smoking. As of today, he has been off cigarettes 699 days. His cigarettes are $10/pack, really expensive. He uses an blayne on his phone which calculates his savings without smoking. DATA * 11/07/24 CXR ; Sternal wires and mediastinal clips are identified, the wires are midline and intact. Annular ring projects in the mitral position. The remainder of the cardiomediastinal silhouette is otherwise unremarkable. Decreased left-sided pleural effusion when compared with previous examination. No left-sided pneumothorax is appreciated. Re-demonstration of left-sided lung fractures. IMPRESSION: Improved left-sided pleural effusion without left-sided pneumothorax following left-sided thoracentesis. * 11.08.24 CXR; IMPRESSION: Small left-sided pleural effusion only minimally increased from the previous examination performed following thoracentesis on 11/07/2024 * November 08 wbc 10.2, H/H 10.2/33.2%, plt 445 k. He has 5.4% eosinophils. Review of Systems Review of Systems: All systems reviewed & are unremarkable except as noted in HPI and below Exam Narrative: GEN: Alert, oriented, not in distress. He is on room air, saturation is 92-97 % on room air HEENT: pupils are equal, EOMI, symmetrical face; oral membranes moist, Mallampati III airway. He has a wheezy cough, sounds as if he has undertreated COPD. NECK: Trachea is midline CHEST: Equal air entry, symmetric excursion, faint squeaks right base, and wheezes on expiration CV: Regular S1S2 no m/g/r- he sounds like he is on sinus rhythm ABD : (+) bowel sounds Extremities : no clubbing, cyanosis, or edema. No calf tenderness. PSYCH: normal thought and speech, gait is not tested. Objective Data Vital Signs Vital Signs: Vital Signs - 24 hr 11/08/24 14:00 11/08/24 16:00 11/08/24 20:00 Temperature 36.5 C Pulse Rate 94 98 95 Respiratory Rate 18 16 Blood Pressure 100/71 Pulse Oximetry 97 95 Oxygen Delivery Room Air Fraction of Inspired Oxygen 21 11/08/24 20:00 11/08/24 21:30 11/09/24 00:00 Temperature 36.3 C L Pulse Rate 96 95 90 Respiratory Rate 16 Blood Pressure 126/79 Pulse Oximetry 95 Oxygen Delivery Fraction of Inspired Oxygen 11/09/24 04:00 11/09/24 05:59 11/09/24 08:00 Temperature 36.2 C L Pulse Rate 88 90 Respiratory Rate 16 Blood Pressure 117/77 Pulse Oximetry 95 Oxygen Delivery Room Air Fraction of Inspired Oxygen 11/09/24 08:00 11/09/24 09:09 11/09/24 09:09 Temperature Pulse Rate 89 89 Respiratory Rate 18 Blood Pressure Pulse Oximetry 92 Oxygen Delivery Room Air Fraction of Inspired Oxygen Intake/Output Intake/Output: Intake & Output 11/06/24 11/07/24 11/08/24 11/09/24 23:59 23:59 23:59 23:59 Intake Total 1450.4 933.6 1098.3 592.1 Output Total 450 2750 1000 200 Balance 1000.4 -1816.4 98.3 392.1 Meds/Results Medications: Active Medications Generic Name Dose Route Start Last Admin Trade Name Freq PRN Reason Stop Dose Admin Albuterol/Ipratropium 3 ml 10/31/24 22:31 10/31/24 22:59 Ipratropium 0.5 Mg/Albuterol Sulfate 2.5 Mg Ampul.Neb 3 Ml INHALATION 3 ml Q6HRT PRN Administration Shortness Of Breath Or Wheezing Bupropion HCl 150 mg 11/01/24 09:00 11/09/24 09:33 Bupropion Hcl Xl (24 Hr) 150 Mg Tabcr PO 150 mg QAM TERRY Administration Cyclobenzaprine HCl 5 mg 10/31/24 22:38 11/08/24 18:03 Cyclobenzaprine Hcl 5 Mg Tablet PO 5 mg TID PRN Administration muscle spasm Empagliflozin 10 mg 11/01/24 09:00 11/09/24 09:33 Empagliflozin 10 Mg Tablet PO 10 mg DAILY TERRY Administration Furosemide 40 mg 11/04/24 15:30 11/09/24 09:33 Furosemide Inj 40 Mg/4 Ml Vial IV PUSH 40 mg DAILY TERRY Administration Heparin Sodium (Porcine) 7,000 units 11/02/24 14:42 11/08/24 19:47 Heparin Sodium 5,000 Units/Ml Vial IV PUSH 7,000 units PRN PRN Administration aPTT less than 55 seconds Heparin Sodium (Porcine) 3,500 units 11/02/24 14:42 11/06/24 11:36 Heparin Sodium 5,000 Units/Ml Vial IV PUSH 3,500 units PRN PRN Administration aPTT 55 - 70 seconds Heparin Sodium/Dextrose 25,000 units in 250 mls @ 22 mls/hr 11/08/24 00:00 11/09/24 07:43 Heparin Sodium/D5w 100 Units/Ml IV CONT 2,200 units/hr .[id number] TERRY 22 mls/hr Administration Protocol 2,200 UNITS/HR Oxycodone/Acetaminophen 1 tab 10/31/24 22:31 11/08/24 18:03 Oxycodone/Acetaminophen (*Crx) 10-325 Mg Tablet PO 1 tab TID PRN Administration pain 7-10 Paroxetine HCl 40 mg 11/01/24 09:00 11/09/24 09:33 Paroxetine 20 Mg Tablet PO 40 mg QAM TERRY Administration Paroxetine HCl 10 mg 11/01/24 09:00 11/09/24 09:33 Paroxetine 10 Mg Tablet PO 10 mg QAM [facility] Administration Sacubitril/Valsartan 1 tablet 10/31/24 22:50 11/09/24 09:33 Sacubitril/Valsartan 49-51 Mg Tablet PO 1 tablet Q12HR TERRY Administration Sodium Chloride 1 gm 11/01/24 09:00 11/09/24 09:33 Sodium Chloride 1 Gm Tablet PO 1 gm DAILY [facility] Administration Sodium Chloride 6 ml 11/08/24 05:00 11/09/24 09:58 Sodium Chlor 3% 15 Ml Neb (Respiratory Therapy) INHALATION 11/10/24 05:01 Not Given DAILY@0500 [facility] Spironolactone 25 mg 11/01/24 09:00 11/09/24 09:33 Spironolactone 25 Mg Tablet PO 25 mg DAILY TERRY Administration Umeclidinium/Vilanterol 1 puff 11/09/24 08:00 11/09/24 09:06 Umeclidinium/Vilanterol 62.5-25 Mcg Ellipta INHALATION 1 puff DAILYRT [facility] Administration Warfarin Sodium 2 mg/ Warfarin 7 mg 11/07/24 21:00 11/08/24 18:03 Sodium 5 mg PO 7 mg DAILY@1700 [facility] Administration Radiology Results: ITS Impressions Chest CT 10/31/24 19:17 IMPRESSION: Large left-sided pleural effusion with adjacent compressive atelectasis, unchanged from plain film evaluation performed approximately 90 minutes earlier ADDENDUM: 11/07/24 1223 Redemonstration of acute minimally displaced fractures of the left seventh through ninth ribs. Thoracentesis Ultrasound 11/07/24 12:49 IMPRESSION: 1. Successful ultrasound-guided thoracentesis yielding 1000 mL of dark maroon-colored fluid. Chest X-Ray 11/09/24 11:06 IMPRESSION: Small left-sided pleural effusion only minimally increased from the previous examination performed following thoracentesis on 11/07/2024 Labs Labs: Laboratory Results - last 24 hr 11/08/24 11/08/24 11/09/24 05:14 18:15 00:46 PT Cancelled INR Cancelled APTT 48.0 H > 200.0 H* Triglycerides 90 Cholesterol 140 Amylase 91 11/09/24 11/09/24 11/09/24 09:38 09:38 09:38 WBC 9.9 RBC 3.45 L Hgb 10.6 L Hct 34.4 L MCV 99.7 MCH 30.7 MCHC 30.8 L RDW 17.0 H Plt Count 432 H MPV 9.0 Immature Gran % (Auto) 0.7 H Neut % (Auto) 66.5 Lymph % (Auto) 15.2 L Webb % (Auto) 11.0 H Eos % (Auto) 5.8 H Baso % (Auto) 0.8 Lymph # (Auto) 1.51 Webb # (Auto) 1.1 H Eos # (Auto) 0.6 H Baso # (Auto) 0.1 Abs Immat Gran (auto) 0.07 H Absolute Neuts (auto) 6.6 Absolute Nucleated RBC 0.000 Nucleated RBC % 0.0 PT Cancelled 14.4 INR Cancelled 1.1 APTT 99.4 H
[2024-11-09 15:49] LABS: Partial Thromboplastin Time 142.5 Seconds (22.3-36.8)
--- NOTE | 2024-11-09 16:22 | P.DS_ITS ---
DS: Admitting Diagnosis Discharge Date 11/09/24 Admitting Diagnosis Hematuria, dyspnea on exertion DS: Discharge Diagnosis Discharge Diagnosis (1) Supratherapeutic INR: Code(s): R79.1 - Abnormal coagulation profile Status: Acute Assessment and Plan: -INR noted 11.1 on ER visit -Bleeding not life threatening at this point -Hold warfarin -Aortic valve replaced with mechanical valve -Warfarin use predatory animal exterminator with goal INR 2.5-3.5 -Did not use K-Centra as current bleeding is not life threatening and we don't want to overcorrect INR if at all possible -Occult positive stool and gross hematuria present -Vitamin K 10 mg oral given in ER -On admit decided to give 2 units FFP and recheck INR after transfusion -Check H&H or CBC every 4 hours and transfuse PRBCs if drops below 8 and bleeding still present -GI consult as below (2) Hematuria: Code(s): R31.9 - Hematuria, unspecified Status: Acute Assessment and Plan: -Gross hematuria noted on my exam of output -Started 2 days ago -Patient continued warfarin dosing despite hematuria -warfarin now held as above -Goal INR 2.5-3.5 due to mechanical heart valve -Consider abd/pelvis CT scan and/or consult to Urology if this continues after INR improvement (3) Atrial fibrillation with rapid ventricular response: Code(s): I48.91 - Unspecified atrial fibrillation Status: Acute Assessment and Plan: -History a-fib and tachy dysrhythmia noted at PCP office -Patient admitted to [facility], may need tele if downgraded after more medically stable (4) Acute upper GI bleed: Code(s): K92.2 - Gastrointestinal hemorrhage, unspecified Status: Acute Assessment and Plan: -Hemoccult positive -History of esophagitis -Pantoprazole 80 mg IV in ER and ordered 40 mg Q12HR to start in AM -GI consulted -Patient was NPO after midnight in case GI wants to go for EGD in the morning -Will want INR improved first (5) Pleural effusion: Code(s): J90 - Pleural effusion, not elsewhere classified Status: Acute Assessment and Plan: -Large left pleural effusion present on imaging -Dyspnea on exertion worsening over past couple weeks likely combination pleural effusion and anemia -Recent broken ribs, possible for this to be partial hemothorax -Not currently requiring oxygen -Order Echocardiogram to assess heart failure status (6) Hypertension: Qualifiers: Hypertension type: essential hypertension Qualified Code(s): I10 - Essential (primary) hypertension Code(s): I10 - Essential (primary) hypertension Status: Acute Assessment and Plan: -BP on softer side -Resume home medications, hold if hypotension develops (7) Mechanical heart valve present: Code(s): Z95.2 - Presence of prosthetic heart valve Status: Acute Assessment and Plan: -See above (8) Tobacco use: Code(s): Z72.0 - Tobacco use Status: Acute Assessment and Plan: -Former smoker, current vape user -Consider nicotine patch if symptoms of withdrawal Plan patient with chronic anticoagulation with warfarin for mechanical valve with INR range of 2.5-3.5. Upon arrival patient INR was 11 with c/o hematuria, and dyspnea on exertion. patient was treated with Vitamin K 10mg PO in the ER and FFP on the floor, started on heparin drip, this morning his INR is 3.5, patient is seen by GI and recommending colonoscopy to further evaluate his anemia, patient had colonoscopy today which showed few small-size uncomplicated internal hemorrhoids were seen in the rectum, otherwise colon was remarkable, will hold warfarin for now place the on heparin drip and monitor, as patient with mechanical valve is high risk of stroke with subtherapeutic INR.patient is also found to have a large pleural effusion, patient was seen by corn detasseler machine operator was scheduled for thoracenteses on 11/03 however his INR was 2.5 and requires INR to be close to 1.6 for the procedure, patient is being bridged with heparin, on 11/04 patient INR was 1.9 and today it is 1.2, patient on 11/07 had thoracen tesis and 1000cc of dark maroon-colored fluid was collected, resumed heparin and Coumadin will monitor, added furosemide 40mg IV qd and diuresed the patient. will dc furosemide, discussed with Dr. Cordova consult who review labs pleural fluids and suspect patient may malignancy, further recommendation to follow. DS: Summary Hospital Course Hospital Course: patient with chronic anticoagulation with warfarin for mechanical valve with INR range of 2.5-3.5. Upon arrival patient INR was 11 with c/o hematuria, and dyspnea on exertion. patient was treated with Vitamin K 10mg PO in the ER and FFP on the floor, started on heparin drip, this morning his INR is 3.5, patient is seen by GI and recommending colonoscopy to further evaluate his anemia, patient had colonoscopy today which showed few small-size uncomplicated internal hemorrhoids were seen in the rectum, otherwise colon was remarkable, will hold warfarin for now place the on heparin drip and monitor, as patient with mechanical valve is high risk of stroke with subtherapeutic INR.patient is also found to have a large pleural effusion, patient was seen by corn detasseler machine operator was scheduled for thoracenteses on 11/03 however his INR was 2.5 and requires INR to be close to 1.6 for the procedure, patient is being bridged with heparin, on 11/04 patient INR was 1.9 and today it is 1.2, patient on 11/07 had thoracentesis and 1000cc of dark maroon-colored fluid was collected, resumed heparin and Coumadin will monitor, added furosemide 40mg IV qd and diuresed the patient. will dc furosemide, discussed with Dr. Cordova consult who review labs pleural fluids and suspect patient may malignancy, further recommendation to follow. patient clinical symptoms have improved, discussed with Dr. Cordova patient can be discharge on lovenox until his INR is theraputics, patient daughter in law is ELECTRICAL SYSTEMS DESIGN ENGINEER, and works with his PMD, will monitor INR and follow ups. Time Spent with Patient Time attestation: Total time spent providing and/or coordinating discharge services: Exam Narrative: Patient is comfortable, NAD HEENT: eyes are clear and none icteric LUNGS:CTA HEART: RR S1S2 ABD: BS+, Soft and nontender Lower extremities: no edema SKIN: nonjaundiced Neuro: grossly intact. DS: Data Data Completed and Pending Completed studies during hospitalization: Pending at discharge 11/07/24 11:25 Cytology [PTH] Routine Labs on day of discharge: Labs from last 24 hours 11/09/24 11/09/24 11/09/24 15:28 09:38 09:38 WBC RBC Hgb Hct MCV MCH MCHC RDW Plt Count MPV Immature Gran % (Auto) Neut % (Auto) Lymph % (Auto) [place] % (Auto) Eos % (Auto) Baso % (Auto) Lymph # (Auto) [place] # (Auto) Eos # (Auto) Baso # (Auto) Abs Immat Gran (auto) Absolute Neuts (auto) Absolute Nucleated RBC Nucleated RBC % PT 14.4 INR 1.1 Cancelled APTT 142.5 H 99.4 H Triglycerides Cholesterol Amylase 11/09/24 11/09/24 11/08/24 09:38 00:46 18:15 WBC 9.9 RBC 3.45 L Hgb 10.6 L Hct 34.4 L MCV 99.7 MCH 30.7 MCHC 30.8 L RDW 17.0 H Plt Count 432 H MPV 9.0 Immature Gran % (Auto) 0.7 H Neut % (Auto) 66.5 Lymph % (Auto) 15.2 L [place] % (Auto) 11.0 H Eos % (Auto) 5.8 H Baso % (Auto) 0.8 Lymph # (Auto) 1.51 [place] # (Auto) 1.1 H Eos # (Auto) 0.6 H Baso # (Auto) 0.1 Abs Immat Gran (auto) 0.07 H Absolute Neuts (auto) 6.6 Absolute Nucleated RBC 0.000 Nucleated RBC % 0.0 PT Cancelled Cancelled INR Cancelled APTT > 200.0 H* 48.0 H Triglycerides Cholesterol Amylase 11/08/24 05:14 WBC RBC Hgb Hct MCV MCH MCHC RDW Plt Count MPV Immature Gran % (Auto) Neut % (Auto) Lymph % (Auto) [place] % (Auto) Eos % (Auto) Baso % (Auto) Lymph # (Auto) [place] # (Auto) Eos # (Auto) Baso # (Auto) Abs Immat Gran (auto) Absolute Neuts (auto) Absolute Nucleated RBC Nucleated RBC % PT INR APTT Triglycerides 90 Cholesterol 140 Amylase 91 Preliminary micro results at discharge 11/09/24 05:31 Sputum Culture - Preliminary Sputum 11/07/24 11:41 Anaerobic Culture - Preliminary Pleural Fluid Aerobic Culture - Preliminary Discharge Plan Discharge Attending physician on discharge: Avila Boyd Consulting providers: Elian Trejo; Joie Cordova; Zbigniew Austin; Tyree Cross; Jose Jones; Clyde Mcpherson; Monique Quinteros; Naveed Foster Discharging Clinician: Burak Cabrales Patient Disposition: Home Activity: as tolerated Diet: heart healthy Discharge Instructions: Please do not discharge patient unless he has approval of his Lovenox. patient to follow up with his primary care provider by Wednesday to check for his INR. patient is instructed if any symptoms redevelop to go to nearest ER. patient to follow up Dr. Cordova in 1 week, chest x-ray in 1 week He had one dose of Anoro today, not enough to determine if he is going to feel better using it. He has albuterol inhalers at home. Cornet valve 10 exhalations QID to clear airway secretions. This can be used at home as needed. He is on the 3rd setting, used this earlier today and was able to expectorate sputum in a container, sent to the lab. Patient Instructions: Antibiotic Form, Warfarin (By mouth), Gastrointestinal Bleeding (GEN), Hematuria (GEN), Elevated INR (GEN) Patient Language: Pashto Stand Alone Forms: General Discharge Information Follow-up/Referrals: Elian Trejo MD [Physician] - Joie Cordova MD [Physician] - Kevin Mac MD [Primary Care Provider] - Discharge Medications: New umeclidinium-vilanterol [Anoro Ellipta] 62.5-25 mcg/actuation Blister With Device 1 inh inhalation DAILYRT Qty: 1 0RF Continued Airsupra 90-80 mcg/actuation HFA aerosol inhaler 2 inh inhalation ONCE Qty: 5.9 3RF Rx Instructions: as a single dose; may repeat up to 6 doses per day (12 inhalations) cyclobenzaprine 5 mg tablet 5 mg PO TID PRN (Reason: muscle spasm) Qty: 30 1RF aspirin 81 mg Tablet 81 mg PO DAILY paroxetine HCl 40 mg tablet 50 mg PO DAILY Rx Instructions: TAKE 1 TABLET BY MOUTH EVERY DAY Total dose of 50 mg daily Entresto 49-51 mg tablet 1 tablet PO BID Qty: 90 3RF Rx Instructions: cardio manages omeprazole 20 mg capsule,delayed release(DR/EC) 20 mg PO DAILY Qty: 90 3RF sodium chloride 1,000 mg tablet,soluble 1,000 mg PO DAILY Qty: 30 1RF oxycodone-acetaminophen 10-325 mg tablet 1 tablet PO TID PRN (Reason: pain) Qty: 90 0RF bupropion HCl 150 mg tablet extended release 24 hr 150 mg PO QAM Qty: 90 3RF spironolactone 25 mg tablet 25 mg PO DAILY Qty: 90 3RF Jardiance 10 mg tablet 10 mg PO DAILY Qty: 90 2RF No Action warfarin 7.5 mg tablet 7.5 mg PO DAILY Qty: 30 1RF Date of admission: 11/02/24 10:24 Primary Care Provider: Kevin Mac Admitting Provider: Avila Boyd Attending physician on admission: Burak Cabrales Condition: Stable
[2024-11-09] MEDS: WARFARIN (*PBKC) 2 MG, WARFARIN (*PBKC) 5 MG 7 MG PO (17:42)
--- NOTE | 2024-11-09 18:51 | PC.NURSE ---
checked with pharmacy to see when pt should start lovenox once heparin drip is off. they informed me 2 hours. pt was instructed on the time when to take lovenox. pt verbalizes understanding
--- NOTE | 2024-11-09 19:32 | PC.NURSE ---
hospitalist put in a note to only d/c pt if he was able to hot die picker lovenox upon discharge. this rn called [facility] in [place] and the pharmacy verified they had enough to fill the whole quantity ordered. pt was educated to hot die picker shots and to begin treatment tonight. pt was informed that a stroke is very likely if he does not continue therapy tonight.
[2024-11-13 10:03] LABS: Albumin Pleural Fluid 2.8 g/dL; Glucose Pleural Fluid 79 mg/dL
== END 2024-11-09 17:35 | disposition home or self-care (01) | DRG 948 ==
LOC: ANHED 19:02 → ANHIMU 21:04 → ANH3MEDSUR 11-08 11:04 → ANHIMU 11-10 13:06
PROVIDERS: Internal Medicine; Internal Medicine Gastroenterology; Internal Medicine Hematology & Oncology; Nurse Practitioner; Student in an Organized Health Care Education/Training Program; Admitting Provider Internal Medicine; Emergency Provider Emergency Medicine; PCP Family Medicine; Visit Provider Family Medicine
PROC: 0DJD8ZZ Inspection of Lower Intestinal Tract, Via Natural or Artificial Opening Endoscopic (ICD-10-PCS; CPT 45378; principal; 2024-11-02 13:30)
DX: R79.1 Abnormal coagulation profile (principal); I48.20 Chronic atrial fibrillation, unspecified; J90 Pleural effusion, not elsewhere classified; I10 Essential (primary) hypertension; J44.9 Chronic obstructive pulmonary disease, unspecified; R31.0 Gross hematuria; D64.9 Anemia, unspecified; K64.8 Other hemorrhoids; R19.5 Other fecal abnormalities; N40.0 Benign prostatic hyperplasia without lower urinary tract symptoms; M19.90 Unspecified osteoarthritis, unspecified site; F41.9 Anxiety disorder, unspecified; F12.90 Cannabis use, unspecified, uncomplicated; W01.198D Fall on same level from slipping, tripping and stumbling with subsequent striking against other object, subsequent encounter; Z96.651 Presence of right artificial knee joint; S22.42XD Multiple fractures of ribs, left side, subsequent encounter for fracture with routine healing; S27.1XXD Traumatic hemothorax, subsequent encounter; Z87.891 Personal history of nicotine dependence; Z79.01 Long term (current) use of anticoagulants; Z95.2 Presence of prosthetic heart valve; Z79.82 Long term (current) use of aspirin
CPT/HCPCS: 32555; 36415; 36430; 71046; 71260; 80053; 81001; 82042; 82150; 82465; 82607; 82746; 82945; 83540; 83550; 83615; 83735; 83921; 83986; 84155; 84157; 84165; 84238; 84311; 84478; 85014; 85018; 85025; 85046; 85610; 85730; 86334; 86850; 86900; 86901; 86923; 87015; 87070; 87075; 87102; 87116; 87205; 87206; 88108; 88305; 88342; 89051; 93005; 93306; 94640; 94667; 96374; 96375; 99285; A9270; G0378; J1644; J1938; J2003; J2470; J2704; J7050; J7120; P9016; P9017; Q9967